=== PATIENT | male | born 1955 | race Caucasian/White ===

== ENCOUNTER 2017-09-28 10:36 | Outpatient (CLI) | payer OTHER | END 2017-09-28 10:37 | disposition home or self-care (01) | LOC: BICULT 10:36 | PROVIDERS: ATTEND Family Medicine | DX: M25.869 Other specified joint disorders, unspecified knee (principal); M71.22 Synovial cyst of popliteal space [Baker], left knee | CPT/HCPCS: 76999 ==

== ENCOUNTER 2018-01-10 10:20 | Outpatient (CLI) | payer OTHER ==
--- NOTE | 2018-01-10 12:59 | RAD ---
CHEST TWO VIEWS: History: Pyriform sinus cancer. Comparison: 07-27-16 FINDINGS: Normal cardiac silhouette. Pulmonary vasculature and hilum are normal. Costophrenic angles are clear. Hyperinflation, without consolidation or mass. No pneumothorax or osseous abnormality. Stable mild c ompression deformity of the midthoracic spine at approximately the T8 and T9 levels. IMPRESSION: Stable mild compression deformities at T8 and T9. No acute cardiopulmonary. POS: [facility]
== END 2018-01-10 10:21 | disposition home or self-care (01) ==
LOC: RAD 10:20
PROVIDERS: ATTEND Neurological Surgery
DX: C12 Malignant neoplasm of pyriform sinus (principal); M43.8X4 Other specified deforming dorsopathies, thoracic region
CPT/HCPCS: 36415; 71046; 84443

== ENCOUNTER 2019-09-09 21:07 | Inpatient (IN) | payer MEDICARE, MEDICAID ==
[2019-09-09 23:00] VITALS: BMI 22.8
[2019-09-09] MEDS ORDERED: Ondansetron ODT 4 MG TAB PO PRN (23:59)
[2019-09-09] MEDS ORDERED: Dextrose 5% in Water 1,000 ML IV PRN (23:59)
[2019-09-09] MEDS ORDERED: Ondansetron PF 4 MG/2 ML Vial IVP PRN (23:59)
[2019-09-09] MEDS ORDERED: hydrALAZINE 20 MG/ML VIAL SLOW IVP PRN (23:59)
[2019-09-09] MEDS ORDERED: Morphine 4 MG/ML VIAL SLOW IVP PRN (23:59)
[2019-09-09] MEDS ORDERED: Sodium Chloride 0.9% 1,000 ML IV SCH (23:59)
[2019-09-09] MEDS ORDERED: Dextrose 50% Abboject 50 ML SYRINGE SLOW IVP PRN (23:59)
--- NOTE | 2019-09-10 02:20 | HP ---
REQUESTING PHYSICIAN: Dr. Torres. ATTENDING SURGEON: Dr. Evans. CONSULTATIONS: Orthopedics, Dr. Jimenez. HISTORY OF PRESENT ILLNESS: Patient is a 64-year-old man, who was unloading the back of his truck when he slipped on some loose gravel and fell on his right hip. Patient was unable to ambulate, was taken to the emergency department in [place], where he underwent evaluation and examination, was noted to have a right femoral neck fracture, at which time Dr. Jimenez was called and he requested the patient be transferred to our facility and admitted to our service for surgical intervention. The patient denied any loss of consciousness. He had a small skin tear on his right elbow, but otherwise had no other complaints. ALLERGIES: CEPHALOSPORINS. CURRENT MEDICATIONS: 1. Baby aspirin. 2. Multivitamin. PAST MEDICAL HISTORY: Throat cancer, treated with radiation. PAST SURGICAL HISTORY: None. SOCIAL HISTORY: Patient drinks 5 to 8 drinks a day. He smokes approximately one pack of cigarettes a day. He uses occasional marijuana. He lives at home alone in the [place] area. REVIEW OF SYSTEMS: A 10-point review of systems is negative, except as otherwise stated. PHYSICAL EXAMINATION: VITAL SIGNS: Temperature is 98.2, heart rate 80, blood pressure 159/82, respirations 16, and oxygen saturation 98% on room air. GENERAL: The patient is resting comfortably in bed. He was asleep at the time of my visit, but he did awaken with verbal stimuli, stated that his pain was controlled at this time as he had just recently received some morphine. HEENT. Head is normocephalic and atraumatic. Eyes, extraocular movements are intact. PERRLA bilaterally. Ears are atraumatic without discharge. Nose is atraumatic without discharge. Oropharynx is clear. NECK: Nontender. Trachea is midline. No JVD. CHEST: Clear to auscultation with good inspiratory and expiratory effort, although the patient did have some scattered rhonchi during one of his respirations. HEART: Regular rate and rhythm. ABDOMEN: Soft, flat, and nontender with active bowel sounds. EXTREMITIES: Neurovascularly intact x4. PELVIS: Stable with tenderness to palpation to the right hip consistent with his fracture. BACK: By report is atraumatic and nontender. LABORATORY FINDINGS: White blood cell count 11.7, hemoglobin 13.2, hematocrit 41.2, and platelets 204. Sodium 129, potassium 4.7, chloride 94, CO2 is 19, BUN 6, creatinine 0.73, and glucose 121. IMAGING: Radiographic reports, views of the right hip show a mildly displaced, comminuted right intertrochanteric hip fracture, views of the right elbow show no acute osseous abnormality. ASSESSMENT: 1. Status post ground level fall. 2. Right intertrochanteric hip fracture. 3. Acute pain secondary to above. 4. Hyponatremia. 5. History of daily alcohol use; throat cancer, treated with radiation; and one pack per day smoking history. PLAN: Plan will be to keep the patient n.p.o., pain control, pulmonary toilet, gastritis, mechanical VTE prophylaxis, IV hydration. Postoperatively, we will restrict his fluid, add salt, begin physical and occupational therapy and discuss placement. Dr. Jimenez was notified by the ER and is aware of the patient. The evaluation, examination , laboratory, and radiographic findings were discussed with Dr. Evans prior to this dictation. Job ID: [id number] [facility]
[2019-09-10] MEDS: Oxazepam 10 MG CAP PO SCH ×3 (02:58→17:50)
[2019-09-10 05:15] LABS: #Basophils 0.1 thou/uL (0.0-0.2); #Eosinphils 0.1 thou/uL (0.0-0.7); #Lymphocytes 1.5 thou/uL (1.20-3.40); #Monocytes 0.8 thou/uL (0.11-0.59); #Neutrophils 5.5 thou/uL (1.40-6.50); %Basophils 0.7 % (0.0-1.0); %Eosinophils 0.9 % (0.0-10.0); %Lymphocytes 19.3 % (21.0-51.0); %Monocytes 9.5 % (0.0-10.0); %Neutrophils 69.7 % (42.0-75.0); Hemoglobin 12.3 g/dL (14.0-18.0); Mean Corpuscular HGB CONC 32.4 g/dL (32.0-36.0); Mean Corpuscular Hemoglobin 32.9 pg (27.0-31.0); Mean Platelet Volume 8.5 fL (7.4-10.4); Platelet Count 195 thou/uL (130-400); RBC Distribution Width 11.1 % (11.5-14.5); Red Blood Cell (RBC) Count 3.75 mill/uL (4.70-6.10); White Blood Cell (WBC) Count 7.9 thou/uL (4.8-10.8)
[2019-09-10 05:30] LABS: Anion Gap 11 mmol/L (10-20); BUN (Urea Nitrogen) 6 mg/dL (8.4-25.7); Calc. Creatinine Clearance 125 mL/min (70-130); Calcium 7.8 mg/dL (7.8-10.44); Carbon Dioxide 24 mmol/L (23-31); Chloride 98 mmol/L (98-107); Estimated GFR-MDRD Greater than 90; Glucose 104 mg/dL (80-115); Potassium 4.5 mmol/L (3.5-5.1); Sodium 128 mmol/L (136-145)
[2019-09-10] MEDS ORDERED: Fentanyl 250 MCG/5 ML VIAL ONE (07:55)
[2019-09-10] MEDS ORDERED: Midazolam HCl 2 mg/2 ml Vial ONE (07:55)
[2019-09-10] MEDS ORDERED: Benzocaine 20% Spray 60 ML CAN ONE (08:07)
[2019-09-10] MEDS: Folic Acid 1 MG TAB PO SCH (08:16)
[2019-09-10] MEDS: Thiamine 100 MG TAB PO SCH (08:16)
--- NOTE | 2019-09-10 08:43 | CON ---
DATE OF CONSULTATION: 09/10/2019 REQUESTING PHYSICIAN: Karlo Evans MD CONSULTING PHYSICIAN: Sumit Jimenez MD REASON FOR CONSULTATION: Right hip intertrochanteric fracture. BRIEF CLINICAL HISTORY: Ruel is a 64-year-old male, who fell yesterday afternoon out of the back of a pickup truck, landing on his right hip. Pain onset was immediate. EMS was dispatched. He was evaluated at [facility]. Radiographs demonstrated an intertrochanteric hip fracture on the right. He was transferred to [facility] for definitive orthopedic management of this problem. He has been admitted to the Trauma Service and we have been consulted. PAST MEDICAL HISTORY: Significant for hyponatremia, prior throat cancer. PAST SURGICAL HISTORY: None. He has had a couple of broken wrists, treated closed. MEDICATIONS: 1. Baby aspirin. 2. Multivitamin. ALLERGIES: NO KNOWN DRUG ALLERGIES. HE DENIES ANY CONTACT ALLERGIES. SOCIAL HISTORY: Occasionally uses marijuana. Lives alone at home. Smokes a pack of cigarettes a day. Consumes ethanol daily. PHYSICAL EXAMINATION: Visual inspection of the right hip demonstrates exquisite tenderness to palpation. Range of motion is not assessed due to an underlying fracture. He has external rotation and shortening of the right lower extremity relative to the left. He is neurovascularly intact in the right lower extremity. IMAGING STUDIES: AP pelvis to the right hip demonstrates intertrochanteric hip fracture on the right with comminution and three-part fractures identified. IMPRESSION: Comminuted displaced right hip intertrochanteric fracture. PLAN: 1. The risks, benefits, options, alternatives, and rationale for proceeding with closed versus open reduction with internal fixation and stabilization has been explained in great detail with the patient. He is ready to proceed. All questions were answered. No guarantee of outcome stated or implied plan. 2. Please see orders. Job ID: [id number]
--- NOTE | 2019-09-10 09:38 | OP ---
DATE OF PROCEDURE: 09/10/2019 OPERATION PERFORMED: Right proximal femur dynamic hip screw fixation. PREOPERATIVE DIAGNOSIS: Right unstable intertrochanteric fracture. POSTOPERATIVE DIAGNOSIS: Right unstable intertrochanteric fracture. COMPLICATIONS: None. ESTIMATED BLOOD LOSS: Minimal. GUINEA PIG BREEDER: Rodo Shafer PA-C IMPLANT: Synthes 3-hole 135-degree DHS. INDICATIONS: Mr. Shelton is a 64-year-old male who has fallen and fractured his right proximal femur. He has been indicated for open reduction and internal fixation of the femur to restore anatomic alignment and promote healing. Risks have been reviewed. Goal of surgery is to promote early mobilization and prevent complications of prolonged bedrest. Risks to include infection, pain, scarring, nerve or vascular injury, nonunion, malunion, and others. DESCRIPTION OF PROCEDURE: Mr. Shelton was identified in the preoperative holding area. His correct extremity was marked. He was carried to the operating room. He was positioned supine. General anesthesia was induced. A multidisciplinary time-out was performed. The right lower extremity was prepped and draped in sterile fashion. We began the procedure with evaluation of the hip fracture under intraoperative x-ray. At this point, we proceeded to pull traction on the leg as well as rotation until we had a well-reduced fracture. We prepped and draped the right lower extremity. We then made an incision on the thigh. We dissected down through the subcutaneous tissues to the fascia, which was opened. We then placed a 135-degree angle guide. The guidewire was placed through the guide into the proximal femur. At this point, we overdrilled the guidewire with our triple reamer. We measured an appropriate length. We then placed our 90-mm screw and a 3-hole sideplate was impacted. We placed 3 screws in the side plate. We used a compression screw to lock further compression of the fracture. We took final x-ray images in orthogonal planes. We thoroughly irrigated with copious lavage. At this point, we closed in layers; 0 Vicryl suture, 2-0 Vicryl suture, and willam were used. Job ID: [id number]
[2019-09-10] MEDS ORDERED: Ondansetron HCl/PF 4 MG/2 ML Vial IVP PRN (09:45)
[2019-09-10] MEDS: Morphine 2 MG/ML SYRINGE SLOW IVP PRN ×2 (10:28→12:34)
--- NOTE | 2019-09-10 11:25 | RAD ---
RIGHT HIP 2 VIEWS: Date: 09/10/2019 HISTORY: Open reduction and internal fixation right hip. Right intertrochanteric hip fracture. FINDINGS/IMPRESSION: Three spot fluoroscopic intraoperative images of the right hip demonstrate interval reduction and int ernal fixation of the intertrochanteric fracture with angled compression device and screws since the previous day's exam. POS: [facility]
[2019-09-10] MEDS ORDERED: Cyclobenzaprine 10 MG TAB PO PRN (13:09)
[2019-09-10] MEDS ORDERED: traMADol HCl 50 MG TAB PO PRN ×2 (13:09)
[2019-09-10] MEDS ORDERED: Morphine 2 MG/ML SYRINGE SLOW IVP PRN (13:12)
[2019-09-10] MEDS: Acetaminophen 325 MG TAB PO SCH ×2 (14:08→17:49)
[2019-09-10] MEDS: Ibuprofen 600 MG TAB PO SCH ×2 (14:08→22:53)
[2019-09-10] MEDS ORDERED: diphenhydrAMINE 50 MG/ML VIAL ONE (15:44)
[2019-09-10] MEDS ORDERED: Rocuronium Bromide 10 MG/ML (10ML VIAL) ONE (15:44)
[2019-09-10] MEDS ORDERED: Ketorolac Tromethamine 30 MG/ML VIAL ONE (15:44)
[2019-09-10] MEDS ORDERED: Glycopyrrolate 0.2 MG/ML 5 ML SYRINGE ONE (15:44)
[2019-09-10] MEDS ORDERED: EPHEDRINE 25 MG/5 ML SYRINGE ONE (15:44)
[2019-09-10] MEDS ORDERED: Dexamethasone 20 MG/5 ML VIAL ONE (15:44)
[2019-09-10] MEDS ORDERED: PROPOFOL 200 MG/20 ML VIAL ONE (15:44)
[2019-09-10] MEDS ORDERED: Ondansetron PF 4 MG/2 ML Vial ONE (15:44)
[2019-09-10] MEDS: CEFAZOLIN 2 GM in Premix Bag 1 BAG IVPB SCH ×2 (15:59→22:58)
--- NOTE | 2019-09-10 16:01 | PRG ---
DATE OF SERVICE: SUBJECTIVE: Mr. Shelton has no complaints this morning. He sustained a right hip fracture status post fall. OBJECTIVE: VITAL SIGNS: He is afebrile. Vital signs are stable. CHEST: Clear. HEART: Regular rate. ABDOMEN: Soft. DIAGNOSTIC DATA: X-rays are all reviewed. ASSESSMENT: Right hip fracture. PLAN: Plan is for ORIF today. Please see [facility] H and P for full details. Job ID: [id number]
[2019-09-11] MEDS: Oxazepam 10 MG CAP PO SCH ×3 (01:08→18:22)
[2019-09-11] MEDS: Acetaminophen 325 MG TAB PO SCH ×4 (01:08→18:22)
[2019-09-11] MEDS: Ibuprofen 600 MG TAB PO SCH ×3 (06:27→21:00)
[2019-09-11] MEDS: Folic Acid 1 MG TAB PO SCH (09:31)
[2019-09-11] MEDS: Enoxaparin Sodium 40 MG/0.4 ML SYRINGE SC SCH (09:31)
[2019-09-11] MEDS: Thiamine 100 MG TAB PO SCH (09:31)
[2019-09-11 09:43] LABS: #Lymphocytes 1.4 thou/uL (1.20-3.40); #Monocytes 0.6 thou/uL (0.11-0.59); #Neutrophils 9.8 thou/uL (1.40-6.50); %Basophils 0.3 % (0.0-1.0); %Eosinophils 0.2 % (0.0-10.0); %Lymphocytes 11.6 % (21.0-51.0); %Monocytes 4.7 % (0.0-10.0); %Neutrophils 83.2 % (42.0-75.0); Hemoglobin 10.5 g/dL (14.0-18.0); Mean Corpuscular HGB CONC 33.5 g/dL (32.0-36.0); Mean Corpuscular Hemoglobin 33.8 pg (27.0-31.0); Mean Platelet Volume 8.8 fL (7.4-10.4); Platelet Count 188 thou/uL (130-400); RBC Distribution Width 11.2 % (11.5-14.5); Red Blood Cell (RBC) Count 3.09 mill/uL (4.70-6.10); White Blood Cell (WBC) Count 11.7 thou/uL (4.8-10.8)
[2019-09-11 10:01] LABS: ALT (SGPT) 11 U/L (8-55); AST (SGOT) 22 U/L (5-34); Alkaline Phosphatase 78 U/L (40-110); Anion Gap 8 mmol/L (10-20); BUN (Urea Nitrogen) 10 mg/dL (8.4-25.7); Bilirubin, Total 0.5 mg/dL (0.2-1.2); Calc. Creatinine Clearance 111 mL/min (70-130); Calcium 7.9 mg/dL (7.8-10.44); Carbon Dioxide 31 mmol/L (23-31); Chloride 96 mmol/L (98-107); Estimated GFR-MDRD Greater than 90; Globulin 2.3 g/dL (2.4-3.5); Glucose 107 mg/dL (80-115); Potassium 4.3 mmol/L (3.5-5.1); Protein, Total 5.3 g/dL (5.8-8.1); Sodium 131 mmol/L (136-145)
--- NOTE | 2019-09-11 11:20 | PRG ---
DATE OF SERVICE: 09/11/2019 SUBJECTIVE: Mr. Shelton is doing very well this morning. He rates his pain 5/10 , well controlled with p.o. pain medication. He has no concerns or complaints. He tolerated breakfast well this morning. The patient denies any agitation or tremors or confusion. The patient initially presented from home, and is open for rehab placement. OBJECTIVE: VITAL SIGNS: Temperature 97.6, pulse 72, respiratory rate 18, O2 saturation 98% on room air, blood pressure 128/68. GENERAL: Well-appearing, in no acute distress. Alert and oriented x3. HEENT: moist mucous membranes. Poor dentition. Extraocular movements intact. sclera non-itceric NECK: Trachea midline. Neck is supple. RESPIRATORY: Symmetric chest wall expansion bilaterally. EXTREMITIES: Neurovascular intact x4. Normal sensation bilaterally and free range of motion of right lower extremity post surgical site. Non-tremulous LABORATORY VALUES: White blood cell count 11.7, hemoglobin 10.5, platelet 188. Sodium 131, chloride 96, carbon dioxide 31, BUN 10, creatinine 0.72. ASSESSMENT: 1. Status post ground level fall. 2. Right hip fracture with open reduction and internal fixation postop day #1. 3. Acute pain secondary to above, well controlled. 4. Hyponatremia, improved. 5. Acute blood loss anemia secondary to the above. 6. History of daily alcohol use, throat cancer treated with radiation. 7. Tobacco abuse, one pack per day smoking history. PLAN: The patient is status post open reduction and internal fixation of right intertrochanteric hip fracture. He is postop day #1. We will continue supportive care with pain management, pulmonary toilet, VTE prophylaxis. The patient's pain is well controlled on current regime. The patient is working with Physical Therapy and Occupational Therapy. The patient's hyponatremia is improved. The patient is on Serax for acute alcohol withdrawal, no signs or symptoms of acute alcohol withdrawal at this time will initial ASE scoring. We will continue to monitor. Case Management to assist with placement as the patient would benefit from rehab prior to discharge home. The patient was seen and examined by Dr. Lorenzana on morning rounds with the above plan discussed with the patient who voiced agreement and understanding of the plan and disposition. Job ID: [id number] [facility]
[2019-09-12] MEDS: Oxazepam 10 MG CAP PO SCH ×3 (01:49→18:19)
[2019-09-12] MEDS: Acetaminophen 325 MG TAB PO SCH ×3 (01:49→15:28)
[2019-09-12] MEDS: Ibuprofen 600 MG TAB PO SCH ×2 (06:35→15:28)
[2019-09-12] MEDS ORDERED: Polyethylene Glycol 3350 17 GM Packet PO SCH ×2 (09:45→21:00)
[2019-09-12] MEDS ORDERED: Senokot 8.6 MG TAB PO SCH ×2 (09:45→21:00)
[2019-09-12] MEDS: Folic Acid 1 MG TAB PO SCH (09:56)
[2019-09-12] MEDS: Enoxaparin Sodium 40 MG/0.4 ML SYRINGE SC SCH (09:56)
[2019-09-12] MEDS: Thiamine 100 MG TAB PO SCH (09:56)
[2019-09-12] MEDS: traMADol HCl 50 MG TAB PO SCH ×2 (09:57→15:28)
--- NOTE | 2019-09-12 11:02 | PRG ---
DATE OF SERVICE: 09/12/2019 SUBJECTIVE: Mr. Shelton is doing very well this morning. Rates his pain 5 to 6 out of 10. However, he has not been requesting his p.r.n. pain medications. He has no concerns or complaints. Tolerating breakfast well. He said he has been working with physical therapy and walking the halls with assistance. Denies any agitation, tremors, or confusion. No signs and symptoms of acute alcohol withdrawal per nursing staff. The patient is eager for discharge and would like to go home with outpt PT. OBJECTIVE: VITAL SIGNS: Temperature 98, pulse 88, respiratory rate 14, O2 saturation 95% on room air, and blood pressure 133/74. GENERAL: Well appearing, no acute distress. Alert and oriented x3, in good spirits. HEENT: Moist mucous membranes. Poor dentition. Extraocular movements intact. Sclerae nonicteric. NECK: Trachea midline. Neck is supple. RESPIRATORY: Symmetric chest wall expansion bilaterally. No acute respiratory distress. EXTREMITIES: Neurovascularly intact x4. Normal sensation bilaterally and free range of motion of right lower extremity postsurgical site and non-tremulous. LABORATORY VALUES: No new values for this morning. ASSESSMENT: 1. Status post ground level fall. 2. Right hip fracture with open reduction and internal fixation, postop day #2. 3. Acute pain secondary to above. 4. Hyponatremia, improved. 5. Acute blood loss anemia, secondary to the above, stable. 6. History of daily alcohol abuse. 7. Throat cancer in remission, treated with radiation and daily alcohol abuse, one pack per day. PLAN: The patient is postop day #2. We will continue supportive care with pain management. We will schedule tramadol as well as p.r.n. to help better well control pain. We will continue pulmonary toilet and VTE prophylaxis in addition of bowel regimen. Encourage patient to continue work with physical and occupational therapy. The patient's hyponatremia has improved. No signs of acute alcohol withdrawal. Case Management to assist with dispo. The patient was seen and examined by Dr. Lorenzana on morning rounds. The above plan was discussed with the patient who voiced agreement and understanding of the plan and disposition. All questions were answered appropriately. Job ID: [id number] [facility]
[2019-09-12 15:29] VITALS: BP 105/63; TEMP 97.7
[2019-09-12] MEDS ORDERED: Aspirin 81 mg Enteric Coated Tablet PO SCH (21:00)
--- NOTE | 2019-09-13 03:05 | DIS ---
DATE OF ADMISSION: 09/09/2019 DATE OF DISCHARGE: 09/12/2019 This is Gale Talbot NP dictating a report for Dr. Lorenzana. DISCHARGE ATTENDING: Dr. Lorenzana. CONSULTS: Orthopedic Surgery, Dr. Jimenez. PROCEDURES PERFORMED: On 09/10/2019, right proximal femur dynamic hip screw fixation by Dr. Jimenez. PRIMARY DIAGNOSES: Right intertrochanteric hip fracture, hyponatremia, acute traumatic pain. SECONDARY DIAGNOSES: Daily alcohol use, throat cancer, treated with radiation. DISCHARGE MEDICATIONS: 1. Aspirin 81 mg b.i.d. for 30 days for VTE prophylaxis. 2. Acetaminophen 650 mg p.o. q.6 hours. 3. Ibuprofen 600 mg p.r.n. q.8 hours. 4. MiraLAX as needed for constipation. 5. Senokot as needed for constipation. 6. Tramadol 50 mg p.o. q.6 hours p.r.n. pain, 1-2 tablets #30. 7. Multivitamin one tablet daily. DISCONTINUE MEDICATIONS: Aspirin 81 mg daily. The patient is to discontinue for 30 days and then restart after the patient completes aspirin 81 mg b.i.d. HISTORY OF PRESENT ILLNESS AND HOSPITAL COURSE: This is a 64-year-old gentleman, who was unloading the back of his truck when he slipped on some loose gravel causing him to fall onto his right hip. The patient was unable to ambulate after falling, was taken to the emergency room for evaluation. The patient was found to have a right femoral neck fracture. The patient's pain was well controlled pre and postop. The patient was able to work with Physical Therapy without any difficulties. The patient denied any loss of consciousness and only had a small skin tear on his right elbow. On the day of discharge, the patient was able to ambulate using a walker 240 feet with minimal assistance. Physical Therapy felt the patient was safe to be discharged home with family members. The patient was seen and evaluated by Dr. Lorenzana during morning rounds. The patient's pain was well controlled and only reported pain whenever he was up and ambulating. We did schedule patient's tramadol q.6 hours. On the day of discharge, vitals were stable and his exam was unremarkable including cardiopulmonary and GI exam. The patient was deemed stable for discharge home with family members, and the patient is to have outpatient physical therapy done. DISPOSITION: Stable. DISCHARGE INSTRUCTIONS: 1. Location: Home with outpatient physical therapy. 2. Diet: Regular diet. 3. Activity: Orthopedic limitations, partial weightbearing to the right lower extremity. 4. Followup: Follow up with Orthopedic Surgery, Dr. Jimenez, in 2 weeks. No need to follow up with Trauma Services. Please call for any questions. This is just a summary of the patient's hospital stay. Please see the chart for details. Job ID: [id number]
== END 2019-09-12 19:12 | disposition home or self-care (01) | DRG 481 ==
LOC: SURG A 22:38 → UNDOADMIN 22:38
PROVIDERS: ADMIT Surgery; ATTEND Surgery
PROC: 0QS604Z Reposition Right Upper Femur with Internal Fixation Device, Open Approach (ICD-10-PCS; principal; 2019-09-10)
DX: S72.141A Displaced intertrochanteric fracture of right femur, initial encounter for closed fracture (principal); E87.1 Hypo-osmolality and hyponatremia; D62 Acute posthemorrhagic anemia; W01.0XXA Fall on same level from slipping, tripping and stumbling without subsequent striking against object, initial encounter; F17.210 Nicotine dependence, cigarettes, uncomplicated; Z88.1 Allergy status to other antibiotic agents; Z79.82 Long term (current) use of aspirin; Z85.12 Personal history of malignant neoplasm of trachea
CPT/HCPCS: 36415; 36416; 76000; 80048; 80053; 85025; C1713; J0690; J1100; J1200; J1650; J1885; J2250; J2270; J2405; J2704; J3010

== ENCOUNTER 2020-05-29 16:02 | Inpatient (IN) | payer MEDICARE, MEDICAID ==
[~2020-05-29 16:02] MED LIST: Iopamidol-370 76% 500 ML 1 ML ONE
[2020-05-29] MEDS ORDERED: Enoxaparin Sodium 80 MG/0.8 ML SYRINGE ONE ×2 (17:09→22:11)
--- NOTE | 2020-05-29 17:11 | CT ---
CTA CHEST: INDICATIONS: Hypoxia. Chest pain. TECHNIQUE: Axial tomograms obtained following angio protocol with multiplanar reconstruction and 3D post process ing. FINDINGS: The pulmonary arteries show adequate opacification. No evidence of pulmonary embolus identified. Review of the lung bravo show cardiomegaly with vascular congestion. Diffuse interstitial prominence , which probably represents interstitial congestion and edema. Small bilateral effusions and mild bibasilar atelectasis and/or infiltrates. Patchy infiltrate in the right middle lobe. Images through the upper abdomen unremarkable. Osseous structures show degenerative changes in the sp ine with wedge compressions of several mid and lower thoracic vertebrae with large bridging osteophyt es and degenerative disk changes. IMPRESSION: 1. No evidence of pulmonary embolus. 2. Cardiomegaly with vascular and interstitial congestion. 3. Small bilateral effusions with bibasilar atelectasis and/or infiltrates. 4. Right middle lobe infiltrate, which would be concerning for pneumonia. POS: [facility]
[2020-05-29 17:28] LABS: CKMB 22.3 ng/mL (0-6.6)
[2020-05-29] MEDS ORDERED: Nitroglycerin 0.4 MG TAB (25 Tab Bottle) SL PRN (18:28)
[2020-05-29] MEDS ORDERED: Albuterol 200 PUFF (6.7GM INHALER) INH PRN (18:29)
[2020-05-29] MEDS ORDERED: cefTRIAXone\\ROCEPHIN 2 GM VIAL ONE (18:29)
--- NOTE | 2020-05-29 18:58 | PDOC.HHP ---
Hospitalist HPI History of Present Illness: ADMISSION DATE: 05/29/2020 TIME OF ASSESSMENT: 1700 PRIMARY CARE PHYSICIAN: None CHIEF COMPLAINT: Chest pain and shortness of breath HPI: This is a 64-year-old gentleman who presents to the emergency department with complaints of chest pain associated with shortness of breath that started early hours this morning. The patient states he has been feeling unwell for the last month with a persistent cough that is junky but nonproductive. He reports having pressure in the center of his chest this morning which is radiating up and down his sternum. He rates it a 20 out of 10 in severity and states he has not had pain like this in the past. At the same time he found it difficult to take of breath and felt that it was breathing quickly without being able to get air in. He had been given a Breo inhaler a month ago which he tried without any relief. He called 911 and was taken to [place] ER for respiratory distress and per EMS was cyanotic in appearance. He was placed on a nonrebreather with improvement in his symptoms. At initial presentation to [place] he was noted to be hypoxic with sats of 76% on room air and improved to 98% on 2 L. Chest x-ray done in the ER demonstrated interstitial opacity in the perihilar regions in both lung bases with small bilateral pleural effusions suggestive of pulmonary edema. Infectious pneumonitis also possibility. There is a focal area of opacity with a rounded configuration of the right hilum felt to be new compared to prior imaging from February 2020 suggesting focal airspace disease however mass lesion could not be fully excluded therefore short-term follow-up imaging of the chest was recommended. Labs done were notable for an elevated white count of 11.9, hemoglobin 14.3, hematocrit 43.7, platelets of 50, neutrophils 81%, bands 2%. Had a sodium of 124, potassium 4.3, BUN 16, creatinine 0.4, GFR greater than 90, glucose 204, alk phos 111, LFTs otherwise normal. Troponin was 0.197 and CK-MB was 5.7. BNP was elevated at 456. Tested negative for influenza A/B and Covid. He was treated for COPD exacerbation with doxycycline 100 mg p.o., methylprednisolone 125 mg IV, given a DuoNeb and received 4000 units of heparin IV. ED COURSE: The patient was transferred to the ER here for a possible NSTEMI. He had an EKG done which demonstrated sinus tachycardia with a heart of 105 with frequent PVCs but no ST changes or T wave abnormalities. Repeat laboratory studies indicated further elevation in the troponin to 3.824 and a CK-MB of 22.3. The patient was treated with Lovenox 1 mg/kg. He also had a CT angiogram of the chest done which showed no evidence of PE. He had cardiomegaly with vascular and interstitial congestion. Small bilateral pleural effusions with bibasilar atelectasis and/or infiltrates. A right middle lobe infiltrate noted, concerning for pneumonia. He was given a dose of Rocephin 2 g IV. ROS: Denies any fevers, chills or sweats. Has had a cough for over a month, no hemoptysis. Reports feeling generally weak for the last month as well. Has vomiting 5 times in the last 3 weeks. Last time he vomited was this morning after breakfast. Does not recall aspirating. He reports having loose stools a couple of weeks ago. No melena or hematochezia. No urinary symptoms. Allergies/Adverse Reactions: Allergy/AdvReac Type Severity Reaction Status Date / Time cetuximab [From Erbitux] Allergy Anaphylaxis Verified 09/09/19 23:11 Home Medications: Medication Instructions Recorded Confirmed Type Multivitamin [Multi-Vitamin Daily] 1 tablet PO DAILY 03/08/13 09/09/19 History Acetaminophen [Tylenol Regular 650 mg PO Q6H tab 09/12/19 Rx Strength] Aspirin [Ecotrin Low Strength] 81 mg PO BID tab 09/12/19 Rx Ibuprofen [Motrin] 600 mg PO Q8HR PRN tab 09/12/19 Rx Polyethylene Glycol 3350 [Miralax] 17 gm PO BID PRN #0 pk 09/12/19 Rx Sennosides [Senokot] 2 tab PO 2100 tab 09/12/19 Rx traMADol HCl [Ultram] 50 mg PO Q6H PRN #30 tab 09/12/19 Rx Past History: PAST MEDICAL HISTORY: 1. History of throat cancer in the past for which he received radiation 2. Previous tobacco abuse 3. Alcohol abuse PAST SURGICAL HISTORY: 1. Previous surgery for a right hip fracture SOCIAL HISTORY: Reports been a heavy smoker for many years and most recently smoked 1 pack a day until February when he quit. He drinks 5-6 beers a day but denies any history of tremors or withdrawal seizures. Denies any drug use. Uses a cane for mobility due to a prior right hip fracture. FAMILY HISTORY: Noncontributory Hospitalist Exam Vitals: VS: Temp 98.4, HR 102, BP 119/78, RR 20, O2 sat 95% on 2 L by nasal cannula General Appearance: NAD, awake alert Eye: PERRL, anicteric sclera ENT: normocephalic atraumatic, no oropharyngeal lesions, dry oral mucosa Neck: supple, no lymphadenopathy Heart: RRR, normal peripheral pulses Respiratory: CTAB, normal chest expansion, no tachypnea, rales Gastrointestinal: soft, non-tender, non-distended, no guarding, no rigidity Extremities: no cyanosis, no edema Skin: no lesions, no rashes, tenting Neurological: cranial nerve grossly intact, normal sensation to touch, no weakness, no focal deficits, no new deficit Musculoskeletal: normal tone, normal strength, no muscle wasting Psychiatric: normal affect, normal behavior, A&O x 3 Hospitalist Results Lab results: Laboratory Last Values CK-MB (CK-2) 22.3 ng/mL (0-6.6) H* 05/29/20 16:25 Troponin I 3.824 ng/mL (< 0.028) H* 05/29/20 16:25 CT scan - head Status: report reviewed by mt Hospitalist H&P A/P (1) Acute respiratory failure with hypoxia Code(s): J96.01 - ACUTE RESPIRATORY FAILURE WITH HYPOXIA Status: Acute Assessment and Plan: Likely has undiagnosed COPD and CHF. CTA negative for PE Improved with steroids and breathing treatments given at [facility] ED Continuous O2 sat monitoring COVID testing negative, will continue duonebs prn Daily steroids: Pred 40 mg PO (2) Pneumonia Code(s): J18.9 - PNEUMONIA, UNSPECIFIED ORGANISM Status: Suspected Assessment and Plan: Leukocytosis and bandemia, has been afebrile Doxycycline given at [place] and started on Rocephin here Will add vanc for possible aspiration, in light of recent vomiting Sputum and blood cultures ordered (3) NSTEMI (non-ST elevated myocardial infarction) Code(s): I21.4 - NON-ST ELEVATION (NSTEMI) MYOCARDIAL INFARCTION Status: Acute Assessment and Plan: Cardiac monitoring Continue to trend troponins Cardiology consult Continue Lovenox (4) Suspected CHF (congestive heart failure) Code(s): R09.89 - OTH SYMPTOMS AND SIGNS INVOLVING THE CIRC AND RESP SYSTEMS S tatus: Acute Assessment and Plan: Fluid restriction No lasix at this time in light of hyponatremia, as per discussion with Dr. Meadows Echo ordered (5) Hyponatremia Code(s): E87.1 - HYPO-OSMOLALITY AND HYPONATREMIA Status: Acute Assessment and Plan: Likely secondary to alcohol abuse Serum and urine osmolality, urine sodium Monitor Na+ Fluid restriction (6) Alcohol abuse Code(s): F10.10 - ALCOHOL ABUSE, UNCOMPLICATED Status: Chronic Assessment and Plan: [facility] protocol initiated Check vitamin B12 and folate (7) Tobacco use Code(s): Z72.0 - TOBACCO USE Status: Chronic Assessment and Plan: per patient he stopped smoking in February (8) Generalized weakness Code(s): R53.1 - WEAKNESS Status: Chronic Assessment and Plan: PT/OT consulted Plan: DVT Prophylaxis: Mechanical SCDs, he is on anticoagulation CODE STATUS: FULL Case discussed with Dr. Meadows who agrees with plan as above
[2020-05-29 19:34] LABS: Lactic Acid 1.4 mmol/L (0.5-2.2)
[2020-05-29 19:38] LABS: Alcohol Less than 10 mg/dL (Less than 10); CRP (Inflammatory) 11.23 mg/dL (= or < 0.5); Magnesium 1.8 mg/dL (1.6-2.6)
[2020-05-29] MEDS ORDERED: Diazepam 5 MG TAB PO PRN (20:22)
[2020-05-29] MEDS ORDERED: Diazepam 5 MG TAB PO SCH (20:30)
[2020-05-29] MEDS ORDERED: Thiamine HCl 200 MG/2 ML VIAL IM SCH (20:30)
[2020-05-29] MEDS ORDERED: Thiamine 100 MG TAB ONE (22:07)
[2020-05-29] MEDS ORDERED: Diazepam 5 MG TAB ONE (22:07)
[2020-05-29] MEDS: Doxycycline 100 MG CAP PO SCH (22:48)
[2020-05-29 23:39] LABS: CKMB 56.2 ng/mL (0-6.6)
[2020-05-30] MEDS ORDERED: Diazepam 5 MG TAB PO PRN (04:00)
[2020-05-30 04:42] LABS: #Lymphocytes 1.5 thou/uL (1.20-3.40); #Monocytes 0.8 thou/uL (0.11-0.59); #Neutrophils 13.9 thou/uL (1.40-6.50); %Basophils 0.2 % (0.0-1.0); %Lymphocytes 9.4 % (21.0-51.0); %Monocytes 4.7 % (0.0-10.0); %Neutrophils 85.7 % (42.0-75.0); Hemoglobin 13.2 g/dL (14.0-18.0); Mean Corpuscular HGB CONC 32.3 g/dL (32.0-36.0); Mean Corpuscular Hemoglobin 31.4 pg (27.0-31.0); Mean Corpuscular Volume 97.3 fL (78.0-98.0); Mean Platelet Volume 8.8 fL (7.4-10.4); Platelet Count 231 thou/uL (130-400); RBC Distribution Width 11.4 % (11.5-14.5); White Blood Cell (WBC) Count 16.2 thou/uL (4.8-10.8)
[2020-05-30 05:02] LABS: ALT (SGPT) 23 U/L (8-55); AST (SGOT) 109 U/L (5-34); Albumin 3.5 g/dL (3.4-4.8); Alkaline Phosphatase 95 U/L (40-110); Anion Gap 14 mmol/L (10-20); BUN (Urea Nitrogen) 20 mg/dL (8.4-25.7); Bilirubin, Total 0.4 mg/dL (0.2-1.2); Calc. Creatinine Clearance 126 mL/min (70-130); Calcium 8.6 mg/dL (7.8-10.44); Carbon Dioxide 22 mmol/L (23-31); Cardiac Risk 2.2 (Less than 4.5); Chloride 90 mmol/L (98-107); Cholesterol 165 mg/dl (< 200 Desired); Globulin 3.2 g/dL (2.4-3.5); Glucose 132 mg/dL (80-115); HDL Cholesterol 76 mg/dL (>60 Neg Risk); LDL Cholesterol, Calculated 80 mg/dL; Potassium 4.9 mmol/L (3.5-5.1); Protein, Total 6.7 g/dL (5.8-8.1); Sodium 121 mmol/L (136-145); Triglycerides 47 mg/dL (Less than 150)
[2020-05-30] MEDS ORDERED: Enoxaparin Sodium 80 MG/0.8 ML SYRINGE ONE (05:42)
[2020-05-30] MEDS ORDERED: Enoxaparin Sodium 80 MG/0.8 ML SYRINGE SC SCH ×2 (06:00→09:00)
[2020-05-30 07:37] LABS: Bilirubin Negative (Negative); Blood, Urine Negative (Negative); Clarity Clear (Clear); Glucose, Urine (Dipstick) 50 mg/dL (Negative); Ketone, Urine Trace mg/dL (Negative); Leukocyte Negative Leu/uL (Negative); Nitrite Negative (Negative); Protein, Urine (Dipstick) 30 mg/dL (Neg-Trace); RBC/HPF 0-3 HPF (0-3); Squamous Epithelial None Seen HPF (0-3); Urobilinogen Normal mg/dL (Less than 2); WBC/HPF 0-3 HPF (0-3)
[2020-05-30 07:41] LABS: Amphetamine Not Detected (NotDetected); Barbiturates Screen Not Detected (NotDetected); Benzodiazepine Screen Detected (NotDetected); Cocaine Metabolite Screen Not Detected (NotDetected); Medtox Control Line Valid? VALID (VALID); Medtox Reader # READER 4; Methadone Not Detected (NotDetected); Methamphetamine Not Detected (NotDetected); Opiate Screen Not Detected (NotDetected); Oxycodone Screen Not Detected (NotDetected); Phencyclidine (PCP) Not Detected (NotDetected); THC/Cannabinoid Screen Detected (NotDetected); Tricyclic Screen Not Detected (NotDetected)
[2020-05-30 07:50] LABS: Bacteria/HPF Rare-Few HPF (None Seen)
[2020-05-30 07:51] LABS: Sperm/HPF 3+ HPF (None Seen)
[2020-05-30 07:53] LABS: Urine Culture Reflex No No
[2020-05-30] MEDS ORDERED: predniSONE 20 MG TAB PO SCH (09:00)
[2020-05-30] MEDS ORDERED: Lidocaine 1% (PF) 30 ML VIAL ONE (09:56)
[2020-05-30] MEDS ORDERED: Aspirin Chewable 81 MG TAB ONE (09:59)
[2020-05-30] MEDS ORDERED: Folic Acid 1 MG TAB ONE (09:59)
[2020-05-30] MEDS ORDERED: predniSONE 20 MG TAB ONE (09:59)
[2020-05-30] MEDS ORDERED: Thiamine 100 MG TAB ONE (09:59)
[2020-05-30] MEDS: Magnesium Oxide 400 MG TAB PO SCH (10:02)
[2020-05-30] MEDS: Aspirin Chewable 81 MG TAB PO SCH (10:03)
[2020-05-30] MEDS: Folic Acid 1 MG TAB PO SCH (10:03)
[2020-05-30] MEDS: Multivitamin W/ Minerals 1 TAB PO SCH (10:03)
[2020-05-30] MEDS: Thiamine 100 MG TAB PO SCH (10:03)
[2020-05-30] MEDS: Doxycycline 100 MG CAP PO SCH ×2 (10:03→20:41)
[2020-05-30] MEDS ORDERED: Sodium Chloride 0.9% 10 ML ONE (10:42)
[2020-05-30] MEDS ORDERED: Communication Order-Pharmacy FS PRN (10:58)
[2020-05-30] MEDS ORDERED: CEFAZOLIN 2 GM in Premix Bag 1 BAG IVPB SCH (11:00)
[2020-05-30 11:14] LABS: PTT 39.5 sec (22.9-36.1); Prothrombin Time 13.8 sec (12.0-14.7)
--- NOTE | 2020-05-30 11:15 | CON ---
DATE OF CONSULTATION: 05/30/2020 REASON FOR CONSULTATION: Non-STEMI. HISTORY OF PRESENT ILLNESS: Mr. Shelton is a pleasant 64-year-old white gentleman, who comes to the hospital for chest pain. He has a history of COPD from tobacco use and he has been short of breath for the last 3 weeks. He saw his primary care doctor who gave him a prescription for Breo Ellipta. It helped at 1st, but it has progressively been getting worse. Yesterday, he decided to come in to the ER in [place], as he felt severe chest pain, felt like somebody putting their foot on his chest and pressing down. It was 10/10 in intensity and the only thing that made it improve was some nitro paste that he had. On my evaluation, he continues to have chest pain about 3/10, but better since the nitro. Troponins were normal initially and have up titrated up to 13 now. PAST MEDICAL HISTORY: 1. Throat cancer status post radiation. 2. History of tobacco use, quit in February of last year. 3. History of alcohol use. 4. COPD. PAST SURGICAL HISTORY: Right hip surgery, right hip replacement. SOCIAL HISTORY: Heavy smoker for many years. Smoked about a pack a day, quit in February of last year. He drinks about five or six beers every day. He has never had withdrawals. He actually started smoking at the age of 6. Since his right hip fracture and repair, he has had some mobility issues. FAMILY HISTORY: Noncontributory. OUTPATIENT MEDICATIONS: 1. Multivitamin daily. 2. Tylenol p.r.n. 3. Aspirin daily. 4. Ibuprofen p.r.n. 5. MiraLAX p.r.n. 6. Senokot p.r.n. 7. Tramadol p.r.n. ALLERGIES: RITUXIMAB GIVES HIM ANAPHYLAXIS. REVIEW OF SYSTEMS: A 12-point review of systems was done and was found to be negative other than stated in the history of present illness. PHYSICAL EXAMINATION: VITAL SIGNS: Temperature 98.2, pulse 92, respiratory rate 18, sat 97% on 2 L nasal cannula, blood pressure 107/69. GENERAL: Awake, alert and oriented x3. No distress. HEENT: Normocephalic and atraumatic. NECK: Supple. LUNGS: Have reduced breath sounds bilaterally. CARDIOVASCULAR: S1 and S2. Multiple PVCs making his heart irregular. ABDOMEN: Soft, positive bowel sounds. EXTREMITIES: No edema. SKIN: Warm and dry. LABORATORY DATA: Laboratory work was reviewed. White count of 11, up to 16 after steroids were given. Hemoglobin of 13.2, hematocrit 40, and platelet count 231. Chemistry troponins initially at 0.1 up to 3, then 8, now 13. CK-MB of 256. Sodium was 121, potassium is 4.9, chloride of 90, carbon dioxide of 22, anion gap of 14, BUN of 20, creatinine 0.67, GFR greater than 90. Glucose was 132. Folate was 12. Vitamin B12 was 809. Triglycerides of 47, LDL of 80, cholesterol total of 165, HDL of 76. UA was unremarkable. Benzodiazepine and cannabis were detected on his toxicology. Alcohol level was negative. COVID PCR influenza A and B were both negative. EKG was reviewed. Ischemic changes in the anterior lateral leads. Chest x-ray and CT of the chest were reviewed. ASSESSMENT/PLAN: 1. [id number] myocardial infarction. 2. We will further risk stratify with the heart catheterization. Risks and benefits of the procedure were discussed with him briefly given the emergent nature of this procedure as he is symptomatic with ongoing chest pain, ischemic looking EKG. I think this is an emergency and we need to go figure out what his coronary arteries look like. My suspicion would be multivessel disease. 3. Further recommendations per results of coronary angiogram. Job ID: [id number]
[2020-05-30] MEDS ORDERED: Albumin 5% 500 ML ONE (12:00)
--- NOTE | 2020-05-30 12:17 | CON ---
DATE OF CONSULTATION: 05/30/2020 REQUESTING PHYSICIAN: Dr. Cruz. CHIEF COMPLAINT: Chest pain and shortness of breath. PRIMARY CARE PHYSICIAN: Patricia Dhaliwal MD. HISTORY OF PRESENT ILLNESS: The patient is a 64-year-old man, who quit smoking last fall after having smoked since the age of 6. He has significant COPD and thought that his COPD was worsening over the last month in spite of having quit smoking when his COPD medications were no longer helping with the shortness of breath. He presented yesterday with chest tightness in addition to his severe shortness of breath. He was found to have an elevated troponin that has continued to rise. It was 0.197 about noon yesterday and as of about 10:30 last night had risen to 56.2. Cardiac catheterization today shows severe distal left main lesion. PAST MEDICAL HISTORY: Significant for throat cancer treated with radiation, COPD, history of alcohol abuse. HOME MEDICATIONS: Baby aspirin and COPD medicines. He is currently on, 1. Baby aspirin. 2. Full-dose Lovenox. 3. Prednisone. 4. Thiamine. 5. Folate. Beta blockade was deferred because of COPD. He reports anaphylaxis with Cetuximab. REVIEW OF SYSTEMS: Negative for any eye, speech, facial, or extremity symptoms consistent with TIAs. Negative for known history of stroke. Negative for claudication. Positive for shortness of breath with productive cough. PHYSICAL EXAMINATION: GENERAL: He appears older than his stated age. VITAL SIGNS: Heart rate is 92, blood pressure 107/69, temperature 98.2. He is 6 feet tall, weighs 178-3/4 pounds. NECK: He has no carotid bruits. LUNGS: He has distant breath sounds. HEART: He has a regular rate and rhythm. ABDOMEN: Soft, nontender. EXTREMITIES: His radial pulses were difficult to appreciate, though his left was palpable. He has nonpalpable dorsalis pedis pulses, but palpable posterior tibials. He has no obvious varicosities. No atrophic skin changes on his lower legs or feet. He has no clubbing, cyanosis, or edema. LABORATORY EXAM: Showed a white count of 16.2, hemoglobin 13.2, hematocrit 40.9, platelets 231,000, and MCV of 97.3. His initial sodium was 124, and CO2 was 21. Electrolytes this morning, sodium 121, potassium 4.9, chloride 90, CO2 22, BUN 20, creatinine 0.67, glucose 132, bilirubin 0.9, alkaline phosphatase 95, AST 109, ALT 23. His troponin last night was 13.301 and his CK was 56.2. His chest x-ray shows marked COPD with prominent vascular markings and pleural markings, right hilar infiltrate, flattened diaphragms, cardiomegaly, no obvious aortic knob calcifications. His CT scan showed no evidence of pulmonary embolism, but did show some consolidative changes in the tip of the right middle lobe. He had scattered calcium in his proximal arch and descending aorta and then the origins of the great vessels. He has subcarinal lymph node that measures about 2.3 cm in transverse diameter as well as peribronchial adenopathy. IMPRESSION AND RECOMMENDATIONS: Severe left main disease in a patient with severe chronic obstructive pulmonary disease. We will plan on urgent CABG. Job ID: [id number]
[2020-05-30] MEDS ORDERED: Midazolam HCl 5 mg/5 ml Vial ONE (12:42)
[2020-05-30] MEDS ORDERED: Fentanyl 250 MCG/5 ML VIAL ONE (12:42)
[2020-05-30] MEDS ORDERED: Fentanyl 100 MCG/2 ML VIAL ONE (12:43)
[2020-05-30] MEDS ORDERED: PHENYLEPHRINE-NS 100 MCG/ML 10 ML SYRINGE ONE ×3 (13:56→15:58)
[2020-05-30] MEDS ORDERED: Dexmedetomidine 200 MCG/2 ML VIAL ONE (14:55)
[2020-05-30] MEDS ORDERED: Midazolam HCl 2 mg/2 ml Vial ONE (15:47)
[2020-05-30] MEDS ORDERED: Magnesium Sulfate 1 GM/2 ML VIAL ONE (15:58)
[2020-05-30] MEDS ORDERED: Heparin 30,000 units/30 ml VIAL ONE (15:58)
[2020-05-30] MEDS ORDERED: Aminocaproic Acid 5 GM/20 ML VIAL ONE (15:58)
[2020-05-30] MEDS ORDERED: Calcium Chloride 1 GM/10 ML Abboject SYRINGE ONE (15:58)
[2020-05-30] MEDS ORDERED: Nitroglycerin 50 MG/250 ML BOT ONE (15:58)
[2020-05-30] MEDS ORDERED: Vecuronium 10 MG VIAL ONE (15:58)
[2020-05-30] MEDS ORDERED: Mannitol 12.5 GM/50 ML ONE (15:58)
[2020-05-30] MEDS ORDERED: Protamine Sulfate 250 MG/25 ML VIAL ONE (15:58)
[2020-05-30] MEDS ORDERED: Sodium Bicarb 50 MEQ/50 ML Abboject 8.4% SYRINGE ONE (15:58)
[2020-05-30] MEDS ORDERED: Heparin 5,000 UNITS/ML VIAL ONE (15:58)
[2020-05-30] MEDS ORDERED: Cardioplegic Soln 1,000 ML BAG ONE (15:58)
[2020-05-30] MEDS ORDERED: Lidocaine 2% PF 100 mg/5 ml Syringe ONE (15:58)
[2020-05-30] MEDS ORDERED: PROPOFOL 200 MG/20 ML VIAL ONE (15:58)
[2020-05-30] MEDS ORDERED: Papaverine 60 MG/2 ML VIAL ONE (15:58)
[2020-05-30] MEDS ORDERED: Rocuronium Bromide 10 MG/ML (10ML VIAL) ONE (15:58)
[2020-05-30] MEDS ORDERED: Thrombin 5000 UNITS/5 ML VIAL ONE (15:58)
[2020-05-30] MEDS ORDERED: Potassium Chloride 60 MEQ/30 ML VIAL ONE (15:58)
[2020-05-30] MEDS ORDERED: Lidocaine 1% PF 5 ML VIAL ONE ×2 (15:58)
[2020-05-30 17:33] LABS: Actual Bicarbonate (HCO3a) 22.5 mEq/L (22-28); Base Excess (BEa) -4.4 mEq/L (-2.0 to +3.0); CO2 Tension 48.3 mmHg (35.0-45.0); Calcium, Ionized (arterial) 1.32 mmol/L (1.12-1.30); O2 Tension (PaO2), arterial 222.1 mmHg (> 80.0); Potassium - ABG Lab 4.97 mmol/L (3.70-5.30); pH, Arterial 7.29 (7.35-7.45)
[2020-05-30 17:35] LABS: Puncture Site Arterial Line
[2020-05-30 17:36] LABS: ALV-art Gradient 74.025 mmHg (0-20)
[2020-05-30] MEDS ORDERED: Iopamidol 370 76% 100 ML VIAL ONE (17:47)
[2020-05-30] MEDS ORDERED: Albumin 5% 250 ML ONE (17:47)
[2020-05-30] MEDS ORDERED: Acetaminophen 325 MG TAB PO PRN (17:49)
[2020-05-30] MEDS ORDERED: Guaifenesin DM 100-10/5 ML UDCUP PO PRN (17:49)
[2020-05-30] MEDS ORDERED: Hetastarch 6% 500 ML 500 ML IVPB PRN (17:49)
[2020-05-30] MEDS ORDERED: Potassium Chloride 20 MEQ/100 ML PREMIX BAG IVPB PRN (17:49)
[2020-05-30] MEDS ORDERED: Nitroglycerin 50 MG/250 ML BOT 250 ML IVPB PRN (17:49)
[2020-05-30] MEDS ORDERED: Bisacodyl 10 MG SUPP PR PRN (17:49)
[2020-05-30] MEDS ORDERED: Promethazine HCl 25 MG/ML VIAL IM PRN (17:49)
[2020-05-30] MEDS ORDERED: hydrALAZINE 20 MG/ML VIAL SLOW IVP PRN (17:49)
[2020-05-30] MEDS ORDERED: niCARdipine 25 MG in Sodium Chloride 0.9% 250 ML 240 ML IVPB PRN (17:49)
[2020-05-30] MEDS ORDERED: Mag-Al 1200 mg/1200 mg/30 ML UDCUP PO PRN (17:49)
[2020-05-30] MEDS ORDERED: Bisacodyl 5 MG TAB PO PRN (17:49)
[2020-05-30] MEDS ORDERED: Post-Op Insulin Drip Protocol IVPB ONE (17:49)
[2020-05-30] MEDS ORDERED: HYDROcodone/Acetaminophen 5/325 mg Tablet PO PRN ×2 (17:49)
[2020-05-30] MEDS ORDERED: Fentanyl 100 MCG/2 ML VIAL SLOW IVP PRN ×2 (17:49)
[2020-05-30] MEDS ORDERED: Morphine 2 MG/ML VIAL SLOW IVP PRN ×2 (17:49→19:00)
[2020-05-30 18:02] LABS: Hemoglobin 11.5 g/dL (14.0-18.0); Mean Corpuscular HGB CONC 33.2 g/dL (32.0-36.0); Mean Corpuscular Hemoglobin 32.5 pg (27.0-31.0); Mean Corpuscular Volume 98.1 fL (78.0-98.0); Mean Platelet Volume 8.9 fL (7.4-10.4); Platelet Count 168 thou/uL (130-400); RBC Distribution Width 11.3 % (11.5-14.5); Red Blood Cell (RBC) Count 3.55 mill/uL (4.70-6.10); White Blood Cell (WBC) Count 22.3 thou/uL (4.8-10.8)
[2020-05-30 18:06] LABS: INR-International Normal Ratio 1.3; PTT 31.6 sec (22.9-36.1)
[2020-05-30 18:24] LABS: Anion Gap 11 mmol/L (10-20); BUN (Urea Nitrogen) 21 mg/dL (8.4-25.7); Calc. Creatinine Clearance 132 mL/min (70-130); Calcium 8.6 mg/dL (7.8-10.44); Carbon Dioxide 22 mmol/L (23-31); Chloride 101 mmol/L (98-107); Glucose 155 mg/dL (80-115); Potassium 5.2 mmol/L (3.5-5.1); Sodium 129 mmol/L (136-145)
[2020-05-30 18:28] LABS: Band 15 % (5-11); Lymphocytes 8 % (21-51); MDiff Complete? YES; Monocytes 2 % (0-10); Myelocyte 5 % (0-0); Neutrophil 66 % (42-75); Platelet Morphology Comment Appears Adequate; RBC Morphology Normal; Reactive Lymphocytes 4 % (0-10)
[2020-05-30] MEDS ORDERED: HUMULIN R 100 UNITS in Sodium Chloride 0.9% 100 ML IVPB SCH (18:30)
[2020-05-30] MEDS ORDERED: Dextrose 50% Abboject 50 ML SYRINGE SLOW IVP PRN (18:30)
[2020-05-30] MEDS ORDERED: Dextrose 5% in Water 1,000 ML IV PRN (18:30)
--- NOTE | 2020-05-30 18:31 | PDOC.HOSPP ---
- Subjective Encounter Date: 05/30/20 Subjective: Unable to obtain ROS while patient is intubated and on Precedex - Objective Vital Signs & Weight: Vital Signs (12 hours) Temp Pulse Resp BP Pulse Ox 05/30/20 17:36 73 05/30/20 07:45 98.2 F 92 18 107/69 97 Weight Weight 178 lb 12.718 oz Result Diagrams: 05/30/20 17:35 05/30/20 17:35 Additional Labs: Accuchecks 05/30/20 05/30/20 05/30/20 15:07 14:41 13:15 POC Glucose 154 H 132 H 121 H Hospitalist ROS - Medication Medications: Active Medications Generic Name Dose Route Start Last Admin Trade Name Freq PRN Reason Stop Dose Admin Aspirin 81 mg 05/30/20 09:00 05/30/20 10:03 Aspirin Chewable 81 Mg Tab PO 81 mg DAILY CHETAN Administration Doxycycline Hyclate 100 mg 05/29/20 21:00 05/30/20 10:03 Doxycycline 100 Mg Cap PO 100 mg BID CHETAN Administration Folic Acid 1 mg 05/30/20 09:00 05/30/20 10:03 Folic Acid 1 Mg Tab PO 1 mg DAILY CHETAN Administration Iron/Minerals/Multivitamins 1 tab 05/30/20 09:00 05/30/20 10:03 Multivitamin W/ Minerals 1 Tab PO Not Given DAILY [facility] Magnesium Oxide 400 mg 05/30/20 09:00 05/30/20 10:02 Magnesium Oxide 400 Mg Tab PO 400 mg DAILY CHETAN Administration Thiamine HCl 100 mg 05/30/20 09:00 05/30/20 10:03 Thiamine 100 Mg Tab PO 100 mg DAILY CHETAN Administration Hospitalist Exam Vitals: Vital Signs (12 hours) Temp Pulse Resp BP Pulse Ox 05/30/20 17:36 73 05/30/20 07:45 98.2 F 92 18 107/69 97 Weight Weight 178 lb 12.718 oz General - other findings: Sedated and intubated Eye: PERRL, anicteric sclera ENT: normocephalic atraumatic Neck: supple Heart: RRR, no murmur, no gallops, no rubs Heart - other findings: Chest tube in place, left subclavian central line in place Respiratory: CTAB, no wheezes, no rales, no ronchi Gastrointestinal: soft, non-tender, non-distended Extremities: no clubbing, no edema Skin - other findings: Cold extremities Psychiatric - other findings: Sedated Hosp A/P (1) Head and neck cancer Code(s): C76.0 - MALIGNANT NEOPLASM OF HEAD, FACE AND NECK Status: Acute (2) COPD (chronic obstructive pulmonary disease) Status: Acute (3) Hypertension Code(s): I10 - ESSENTIAL (PRIMARY) HYPERTENSION Status: Acute (4) Hyponatremia Code(s): E87.1 - HYPO-OSMOLALITY AND HYPONATREMIA Status: Acute (5) CHF (congestive heart failure) Code(s): I50.9 - HEART FAILURE, UNSPECIFIED Status: Acute (6) NSTEMI (non-ST elevated myocardial infarction) Code(s): I21.4 - NON-ST ELEVATION (NSTEMI) MYOCARDIAL INFARCTION Status: Acute - Plan Assessment Patient is a 64-year-old male with a past medical history of tobacco smoking since age 6, throat cancer status post radiation, and COPD. Presented as a direct admit from [facility] where he was seen for chest pain. On evaluation he was found to have a troponin of 0.197 and was transferred to [facility] for further evaluation. Since his arrival, his troponin has been uptrending and reached a maximum of 13. He underwent a coronary angiogram which revealed left main disease with presence of an ulcerated plaque causing at least 90% occlusion. He was taken urgently to the OR for a CABG. intraoperative course complicated by hypotension. Returned from the OR intubated, and on Levophed. He is also receiving albumin infusion. NSTEMI Status post CABG Coronary artery disease History of tobacco smoking History of throat cancer COPD Hypertension Possible CHF Plan: Continue ICU stay while intubated History of throat cancer status with radiation makes him high risk for airway complication Pulmonary is on board Started patient on empiric Zosyn due to findings of new infiltrates on chest x- ray Follow-up blood cultures and lactic acid Continue Levophed and titrate to keep map above 65 Discontinue nicardipine infusion Continue Precedex for sedation Start DVT and GI prophylaxis
--- NOTE | 2020-05-30 18:32 | RAD ---
SUPINE PORTABLE CHEST: 05/30/20 INDICATIONS: Postop sternotomy. COMPARISON: 05/29/20. ET tube has tip above jesse. There is a central line overlying the SVC. There is patchy infiltrate in the left upper lobe which is a new finding. Right perihilar atelectasis or infiltrate again noted. There is infiltrative changes in the medial ri ght lung base. Postop sternotomy change. IMPRESSION: Left upper lobe infiltrate appears new. Right perihilar and right medial basilar infiltrate noted. Cl ose follow-up recommended. POS: AGW
[2020-05-30] MEDS ORDERED: Piperacillin/Tazobactam 3.375 GM in Sodium Chloride 0.9% 100 ML IVPB SCH (18:45)
[2020-05-30 18:50] LABS: Potassium 5.5 mmol/L (3.5-5.1)
[2020-05-30] MEDS ORDERED: Fentanyl CADD 100 ML IV SCH (19:00)
[2020-05-30] MEDS ORDERED: Lorazepam 2 MG/ML VIAL SLOW IVP PRN (19:00)
[2020-05-30] MEDS ORDERED: Propofol 1,000 MG/100 ML VIAL IV PRN (19:00)
[2020-05-30] MEDS ORDERED: Fentanyl BOLUS 250 ML IVPB PRN (19:00)
[2020-05-30] MEDS ORDERED: DISCONTINUE PREVIOUS NARCOTIC PAIN MEDICATIONS AND BENZODIAZEPINES FS SCH (19:00)
[2020-05-30] MEDS ORDERED: methylPREDNISolone Sod Succ 40 MG VIAL IVP SCH (19:00)
[2020-05-30] MEDS ORDERED: Propofol BOLUS 1,000 MG/100 ML VIAL IV PRN (19:00)
--- NOTE | 2020-05-30 19:05 | OP ---
DATE OF PROCEDURE: 05/30/2020 PROCEDURES PERFORMED: Emergent coronary artery bypass grafting x3, left internal mammary artery to the mid left anterior descending and sequential reverse greater saphenous vein graft from aorta to the first obtuse marginal to the posterolateral branch of the right coronary artery. PREOPERATIVE DIAGNOSES: Left main coronary artery disease with ongoing post infarction angina. POSTOPERATIVE DIAGNOSES: Left main coronary artery disease with ongoing post infarction angina. CASE PICKER: Edward Kim MD ANESTHESIA: General endotracheal anesthesia. INDICATIONS: The patient is a 64-year-old male with severe COPD, who recently completed radiation therapy for throat cancer. Over the last month, he has been having worsening shortness of breath that he attributed to his COPD. It become resistant to his typical nebulizer and rescue inhaler regimen. He presented with a combination of severe shortness of breath and chest tightness and ruled in for myocardial infarction. His pain has improved, but not completely resolved. Cardiac catheterization demonstrated a high-grade distal left main lesion with more modest disease in the right coronary and a small diagonal isolated between the left main and LAD lesion. He has a decreased LV function with hypokinesis of his anterior wall, apex, and septum on echocardiography. FINDINGS: Pump time 65 minutes. Cross-clamp time 37 minutes. Hyperexpanded lungs. Good quality MELISA with good flow. Good quality saphenous vein. The LAD was about 2 mm vessel that was good quality after hard plaquing throughout its proximal and midportion down to the last diagonal of the first obtuse marginal was about a 1.5 mm good quality vessel. The second diagonal was about a 1.5 mm vessel that ran in close proximity to the grafted OM and had palpable disease in it. The right coronary system through much of the PDA to the AV groove had hard plaque in it. The true PDA was about a 1 mm vessel. The posterolateral branch that was grafted was about 2 mm vessel. DESCRIPTION OF PROCEDURE: After informed consent was obtained, the patient was taken to the operating room, placed in supine position on the operating table. After the induction of general anesthesia, his left greater saphenous vein was ultrasonographically mapped and marked. His left upper chest was prepped and draped in sterile fashion. He was placed in Trendelenburg and triple-lumen central line kit was used to place a left subclavian line by the Seldinger technique. All 3 ports easily aspirated and flushed. The line was secured with suture. The patient's torso, groins, and lower extremities were prepped and draped in sterile fashion. The left greater saphenous vein was harvested from knee to groin endoscopically through a port site incision just above the knee and prepared for use as a graft. That port site incision was closed in layers of subcutaneous and subcuticular Vicryl. A median sternotomy was performed. The left pleura was mobilized. A rent was made several centimeters from the xiphoid cephalad in the course of exposing the MELISA. It was a fairly good quality vessel with a good pulse in it. It was mobilized as a skeletonized in-situ graft from the level of the xiphoid to just beyond the subclavian vein controlling side branches with small hemoclips. The patient was heparinized. The mammary was ligated and divided distally. There was good flow through it and it dilated nicely with instillation of intraluminal papaverine solution. The mammary bed was inspected for hemostasis. The rent in the pleura was repaired with 6-0 Prolene suture. The mediastinal reflections of the pleura rather easily developed and it appeared that the mammary was of adequately to reach the LAD. The MELISA retractor was replaced with a Olsen retractor. The pericardium was opened and marsupialized. The aorta was palpated and soft. A double concentric pursestring of 2-0 Ethibond was placed in ascending aorta just within the pericardial reflection and a single pursestring was placed in the right atrial appendage. Aortic and venous cannulae were inserted and secured by their pursestrings. Cardiopulmonary bypass was instituted and the patient was systemically cooled. The heart was examined. The vessels to be bypassed were identified. A longitudinal slit was made in the pericardium anterior to the left phrenic nerve through which the mammary was passed. A point on the LAD was chosen for anastomosis, where it became soft, fairly good quality vessel. The lungs were reinflated and the heart was allowed to fill and it again appeared that the inside two mammary would be of adequate length to reach the LAD in spite of the hyperexpanded lungs. The plane between the aorta and the pulmonary artery was developed. The vein was evaluated because of held distally on the right coronary system well out onto the epicardial surface of the heart in the posterolateral distribution. It was questionable whether the amount of harvested vein would be adequate for two separate vein grafts whether the posterolateral graft was brought along the right side of the heart or the left, but it was clearly enough to allow for either a sequential grafting technique or a wide technique. An aortic cross-clamp was applied and cardioplegia was administered through an aortic root needle. When arrest have been achieved, attention was turned to the posterolateral branch of the RCA. It was exposed and opened just distal to some plaquing beyond the AV groove, reverse saphenous vein was anastomosed to it end-to-side with running 6-0 Prolene suture and the anastomosis tested by flushing cold cardioplegia down the graft. It appeared that it was a shorter length to the aorta coming around the left side of the heart, but it is still borderline whether the harvested length of vein to be adequate for two separate grafts brought off the aorta. It was opted to construct a sequential graft to the first OM. The OM was exposed and opened and a corresponding anatomy was made in the posterolateral vein graft. A [id number]-[id number] anastomosis between the two was then constructed with the axis of the anastomosis perpendicular to the axis of the coronary. The LAD was then opened at the transition between hard plaquing and soft vessel just beyond a large diagonal. The mammary was anastomosed there end-to-side with running 7-0 Prolene and tacked to the epicardium. The aortic cross-clamp was replaced with a partial occluding clamp and aortotomy was made in the ascending aorta with a scalpel and punch incorporating the root needle site. The sequential vein graft was anastomosed there end-to-side with running 6-0 Prolene suture and marked with small hemoclips. The partial occluding clamp was removed. The vein graft was de-aired and the bulldog removed from it. The anastomoses were inspected for hemostasis. The posterior pericardial drain was brought out through a separate incision and secured with suture. Right atrial and right ventricular temporary epicardial pacing wires were placed and the patient was then from cardiopulmonary bypass using atrial pacing as his intrinsic heart rate at that point was a sinus rhythm in the mid 40s. He easily from cardiopulmonary bypass with pacing and a Levophed drip. The aortic and venous cannulae were removed and the pursestring secured. Protamine was very slowly administered. Lidocaine suppressed some ventricular ectopy that was beginning to appear and the patient's contractility gradually improved. The aortic and venous cannulae removed and the pursestring secured. When hemostasis was adequate, an anterior mediastinal drain was placed. It was not feasible to completely cover the vein graft or to close the pericardium completely. The mediastinal fat was draped over the innominate vein, aortic cannulation site, and aorta. A loose pericardial closure was affected with 2-0 Vicryl. The cut surfaces of the sternum were treated with vancomycin paste and platelet rich GPS. The sternum was reapproximated with a combination of simple and [id number] #7 stainless steel wires. Soft tissue was irrigated and treated with platelet poor GPS. The fascia was closed over the wires with a running #1 Vicryl. Subcutaneous tissue was reapproximated with running 2-0 Vicryl, and skin was closed with 3-0 Vicryl subcuticular suture. Dermabond and dressings were applied. The patient was then transported to the ICU in stable condition. Job ID: [id number]
[2020-05-30 19:40] LABS: Lactic Acid 1.3 mmol/L (0.5-2.2)
[2020-05-30] MEDS ORDERED: Fentanyl CADD 100 ML ONE (19:41)
[2020-05-30] MEDS: Ketorolac Tromethamine 30 MG/ML VIAL IVP SCH (19:52)
[2020-05-30] MEDS: Sodium Chloride 0.9% 1,000 ML IV SCH (19:53)
[2020-05-30] MEDS: Insulin Regular 300 UNITS/3 ML VIAL SC PRN (20:07)
[2020-05-30] MEDS: Enoxaparin Sodium 40 MG/0.4 ML SYRINGE SC SCH (20:40)
[2020-05-30] MEDS: Famotidine/PF 20 mg/2ml Vial SLOW IVP SCH (20:40)
[2020-05-30] MEDS: Docusate 100 MG CAP PO SCH (20:41)
[2020-05-30] MEDS ORDERED: Famotidine/PF 20 mg/2ml Vial SLOW IVP SCH (21:00)
[2020-05-30 23:10] LABS: Hemoglobin 10.6 g/dL (14.0-18.0)
[2020-05-30 23:33] LABS: Potassium 5.5 mmol/L (3.5-5.1)
[2020-05-31] MEDS: Insulin Regular 300 UNITS/3 ML VIAL SC PRN ×3 (00:50→21:19)
[2020-05-31] MEDS: Ketorolac Tromethamine 30 MG/ML VIAL IVP SCH ×3 (01:13→11:17)
[2020-05-31] MEDS: methylPREDNISolone Sod Succ 40 MG VIAL IVP SCH ×4 (01:14→21:17)
[2020-05-31] MEDS: Piperacillin/Tazobactam 3.375 GM in Sodium Chloride 0.9% 100 ML IVPB SCH ×2 (01:14→05:03)
[2020-05-31 04:17] LABS: #Lymphocytes 0.9 thou/uL (1.20-3.40); #Monocytes 0.7 thou/uL (0.11-0.59); #Neutrophils 9.8 thou/uL (1.40-6.50); %Basophils 0.2 % (0.0-1.0); %Eosinophils 0.1 % (0.0-10.0); %Monocytes 6.3 % (0.0-10.0); %Neutrophils 85.4 % (42.0-75.0); Hemoglobin 10.5 g/dL (14.0-18.0); Mean Corpuscular HGB CONC 33.6 g/dL (32.0-36.0); Mean Corpuscular Hemoglobin 32.9 pg (27.0-31.0); Mean Corpuscular Volume 97.8 fL (78.0-98.0); Platelet Count 174 thou/uL (130-400); RBC Distribution Width 11.3 % (11.5-14.5); White Blood Cell (WBC) Count 11.4 thou/uL (4.8-10.8)
[2020-05-31 04:34] LABS: Anion Gap 11 mmol/L (10-20); BUN (Urea Nitrogen) 25 mg/dL (8.4-25.7); Calc. Creatinine Clearance 110 mL/min (70-130); Carbon Dioxide 22 mmol/L (23-31); Chloride 101 mmol/L (98-107); Glucose 150 mg/dL (80-115); Potassium 5.6 mmol/L (3.5-5.1); Sodium 128 mmol/L (136-145)
[2020-05-31] MEDS: Norepinephrine 8 MG/0.9% NS 250 ML IVPB PRN ×2 (05:04→22:18)
[2020-05-31] MEDS ORDERED: Lidocaine 2% PF 100 mg/5 ml Syringe IVP SCH (08:15)
--- NOTE | 2020-05-31 08:24 | RAD ---
EXAM: CHEST ONE VIEW HISTORY: Post open heart surgery. COMPARISON: 05/30/2020 FINDINGS: Endotracheal tube, left-sided vascular catheter, mediastinal drains remain in place. Median sternotom y wires are again present. Cardiac silhouette is magnified by projection. Parenchymal airspace opacity in left suprahilar region has mildly improved but does persist. Patchy parenchymal airspace o pacity overlying the right hilar region persists. There is suggestion of small right pleural effusion with questionable minimal left pleural effusion. Mild increased density is seen at the media l left lung base. No other interval change. IMPRESSION: 1. Mild improvement in interstitial and patchy parenchymal airspace opacity left upper lung zone with persistent parenchymal airspace opacity overlying right hilar region. Findings may be related to bilateral pneumonia with mild improvement on the left. 2. Small bilateral pleural effusions. 3. Continued follow-up is recommended.
[2020-05-31] MEDS ORDERED: DC Sedation Protocol FS ONE (08:51)
[2020-05-31] MEDS: Famotidine/PF 20 mg/2ml Vial SLOW IVP SCH ×2 (09:12→21:17)
[2020-05-31] MEDS: Sodium Chloride 0.9% 1,000 ML IV SCH ×2 (09:16→19:30)
--- NOTE | 2020-05-31 09:18 | CON ---
DATE OF CONSULTATION: HISTORY OF PRESENT ILLNESS: Ruel Shelton is a 64-year-old gentleman who underwent an emergency CABG on 05/30/2020. Post CABG, I started him on steroids and neb treatments. This morning, he remains intubated on the vent, awake, responsive. His CABG was unremarkable as per surgery. The patient has known history of COPD. He had chest pain and shortness of breath and came to the hospital several days ago. Cardiac cath revealed coronary artery disease. His CAT scan and his chest x-ray showed pleural effusion, right-sided infiltrate. His sputum is relatively clear. PAST MEDICAL HISTORY: Throat cancer, treated by radiation; ongoing tobacco abuse; alcohol abuse. PAST SURGICAL HISTORY: Hip fracture. SOCIAL HISTORY: Drinks 5-6 beers a day. Apparently smoking until recently a pack a day. MEDICATIONS: Home medicines include tramadol, Motrin, apparently at some place [place]. ALLERGIES: . PHYSICAL EXAMINATION: GENERAL: He is awake, alert, responsive. VITAL SIGNS: This morning, his pulse is 110, blood pressure 130/80, respiratory rate 18. CHEST: No wheezing, no crackles. CARDIAC: Normal S1, S2. No murmurs or gallops. ABDOMEN: No masses. LABORATORY DATA: White count 11,000, H and H 10 and 30, platelet count is normal. His chemistry shows sodium 128, otherwise unremarkable. Chest x-ray shows as noted the right-sided haziness, small pleural effusion. His last blood gases postop; pO2 222, pCO2 48, pH 7.29. His sodium has been persistently low. Toxicology screen positive for cannabinoids. ASSESSMENT: Status post coronary artery bypass graft, chronic obstructive pulmonary disease, respiratory failure, abnormal chest x-ray, pleural effusion, marijuana abuse, throat cancer, ejection fraction 30% to 35%, hyponatremia. PLAN: Wean and extubate. Continue steroids, neb treatments, supportive care. Aggressive PT. This is a 45-minute critical care time. Job ID: [id number]
[2020-05-31] MEDS: Aspirin Chewable 81 MG TAB PO SCH (09:59)
[2020-05-31] MEDS: Magnesium Oxide 400 MG TAB PO SCH (10:03)
[2020-05-31] MEDS: Folic Acid 1 MG TAB PO SCH (10:14)
[2020-05-31] MEDS: Multivitamin W/ Minerals 1 TAB PO SCH (10:14)
[2020-05-31] MEDS: Docusate 100 MG CAP PO SCH ×2 (10:14→21:18)
[2020-05-31] MEDS: Thiamine 100 MG TAB PO SCH (10:14)
[2020-05-31] MEDS: Amoxicillin/Potassium Clav 500 MG TAB PO SCH ×2 (11:04→21:18)
[2020-05-31] MEDS: Doxycycline 100 MG CAP PO SCH ×2 (11:08→21:18)
[2020-05-31] MEDS: Ondansetron PF 4 MG/2 ML Vial IVP PRN (12:06)
--- NOTE | 2020-05-31 13:43 | PDOC.HOSPP ---
- Subjective Encounter Date: 05/31/20 Encounter Time: 13:38 Subjective: Mr. Shelton was seen today in follow-up post CABG. He does not have any complaints. He denies chest pain or dyspnea. - Objective Vital Signs & Weight: Vital Signs (12 hours) Temp Pulse Resp BP Pulse Ox 05/31/20 12:41 98 05/31/20 12:37 99 22 H 99 05/31/20 12:00 99 05/31/20 08:00 99.5 F 20 95 05/31/20 06:34 96 130/68 05/31/20 06:32 93 20 98 05/31/20 06:00 16 05/31/20 04:02 71 05/31/20 04:00 98.7 F 16 05/31/20 02:00 16 Weight Weight 182 lb 5.156 oz Most Recent Monitor Data Heart Rate from ECG 96 NIBP 102/76 NIBP BP-Mean 84 Respiration from ECG 24 SpO2 100 I&O: 05/30/20 05/31/20 06/01/20 06:59 06:59 06:59 Intake Total 1963.3 750 Output Total 750 260 Balance 1213.3 490 Result Diagrams: 05/31/20 04:00 05/31/20 04:00 Additional Labs: Accuchecks 05/31/20 05/31/20 05/30/20 04:24 00:43 20:04 POC Glucose 115 H 130 H 136 H 05/30/20 05/30/20 05/30/20 17:45 17:07 16:24 POC Glucose 144 H 155 H 153 H 05/30/20 05/30/20 05/30/20 15:07 14:41 14:16 POC Glucose 154 H 132 H 153 H 05/30/20 13:15 POC Glucose 121 H Hospitalist ROS - Medication Medications: Active Medications Generic Name Dose Route Start Last Admin Trade Name Freq PRN Reason Stop Dose Admin Albumin Human 25 gm 05/30/20 17:49 05/31/20 10:52 Albumin 5% 12.5 Gm/250 Ml Bot IVPB 05/31/20 17:50 25 gm Q6H PRN Administration To Maintain SBP > 90 mmHG Albuterol/Ipratropium 3 ml 05/30/20 19:00 05/31/20 12:37 Ipratropium/Albuterol Sulfate 3 Ml Neb NEB 3 ml [id number] CHETAN Administration Amoxicillin/Clavulanate Potassium 500 mg 05/31/20 09:00 05/31/20 11:04 Amoxicillin/Potassium Clav 500 Mg Tab PO 500 mg Q12HR CHETAN Administration Aspirin 81 mg 05/30/20 09:00 05/31/20 09:59 Aspirin Chewable 81 Mg Tab PO 81 mg DAILY CHETAN Administration Docusate Sodium 100 mg 05/30/20 21:00 05/31/20 10:14 Docusate 100 Mg Cap PO 100 mg BID CHETAN Administration Doxycycline Hyclate 100 mg 05/29/20 21:00 05/31/20 11:08 Doxycycline 100 Mg Cap PO 100 mg BID CHETAN Administration Enoxaparin Sodium 40 mg 05/30/20 21:00 05/30/20 20:40 Enoxaparin Sodium 40 Mg/0.4 Ml Syringe SC 40 mg 2100 CHETAN Administration Famotidine 20 mg 05/30/20 21:00 05/31/20 09:12 Famotidine/Pf 20 Mg/2ml Vial SLOW IVP 20 mg BID CHETAN Administration Folic Acid 1 mg 05/30/20 09:00 05/31/20 10:14 Folic Acid 1 Mg Tab PO 1 mg DAILY CHETAN Administration Sodium Chloride 1,000 mls @ 75 mls/hr 05/30/20 17:49 05/31/20 09:16 Normal Saline 0.9% IV 1,000 mls .[id number] CHETAN Administration Norepinephrine Bitartrate 250 mls @ 0 mls/hr 05/30/20 17:49 05/31/20 05:04 Levophed IVPB 250 mls PRN PRN Administration To maintain SBP > 90 mmHG Protocol Titrate Dexmedetomidine HCl 400 mcg/ 100 mls @ 0 mls/hr 05/30/20 20:15 05/31/20 04:20 Sodium Chloride IVPB 100 mls INF CHETAN Administration Protocol Titrate Insulin Human Regular 0 units 05/30/20 18:30 05/31/20 00:50 Insulin Regular 300 Units/3 Ml Vial SC 2 unit Q4H PRN Administration POST OP SLIDING SCALE Protocol Iron/Minerals/Multivitamins 1 tab 05/30/20 09:00 05/31/20 10:14 Multivitamin W/ Minerals 1 Tab PO 1 tab DAILY CHETAN Administration Magnesium Oxide 400 mg 05/30/20 09:00 05/31/20 10:03 Magnesium Oxide 400 Mg Tab PO 400 mg DAILY CHETAN Administration Methylprednisolone Sodium Succinate 40 mg 05/31/20 09:00 05/31/20 11:15 Methylprednisolone Sod Succ 40 Mg Vial IVP 40 mg BID CHETAN Administration Ondansetron HCl 4 mg 05/30/20 17:49 05/31/20 12:06 Ondansetron Pf 4 Mg/2 Ml Vial IVP 4 mg Q6H PRN Administration Nausea/Vomiting Sodium Chloride 10 ml 05/30/20 21:00 05/31/20 11:15 Flush - Normal Saline 10 Ml Syringe IVF 10 ml Q12HR CHETAN Administration Thiamine HCl 100 mg 05/30/20 09:00 05/31/20 10:14 Thiamine 100 Mg Tab PO 100 mg DAILY CHETAN Administration Hospitalist Exam Vitals: Vital Signs (12 hours) Temp Pulse Resp BP Pulse Ox 05/31/20 12:41 98 05/31/20 12:37 99 22 H 99 05/31/20 12:00 99 05/31/20 08:00 99.5 F 20 95 05/31/20 06:34 96 130/68 05/31/20 06:32 93 20 98 05/31/20 06:00 16 05/31/20 04:02 71 05/31/20 04:00 98.7 F 16 05/31/20 02:00 16 Weight Weight 182 lb 5.156 oz Most Recent Monitor Data Heart Rate from ECG 96 NIBP 102/76 NIBP BP-Mean 84 Respiration from ECG 24 SpO2 100 Eye: PERRL, anicteric sclera Heart: RRR, no murmur, no gallops, no rubs Respiratory: rhonchi (at) Gastrointestinal: soft, non-tender, non-distended, normal bowel sounds, no palpable masses, no hepatomegaly Extremities: no cyanosis, no edema Hosp A/P (1) S/P CABG x 2 Code(s): Z95.1 - PRESENCE OF AORTOCORONARY BYPASS GRAFT Status: Acute (2) COPD (chronic obstructive pulmonary disease) Status: Chronic (3) Hypertension Code(s): I10 - ESSENTIAL (PRIMARY) HYPERTENSION Status: Chronic (4) Hyponatremia Code(s): E87.1 - HYPO-OSMOLALITY AND HYPONATREMIA Status: Acute (5) NSTEMI (non-ST elevated myocardial infarction) Code(s): I21.4 - NON-ST ELEVATION (NSTEMI) MYOCARDIAL INFARCTION Status: Acute (6) Alcohol abuse Code(s): F10.10 - ALCOHOL ABUSE, UNCOMPLICATED Status: Chronic - Plan * NSTEMI- post CABG- he is clinically stable- He is on a low dose Levophed to support his blood pressure * COPD- continue Solumedrol- Albuterol inhaled, as needed * Continue Doxycycline * Insulin drip to management blood glucose * Hyponatremia- improved- this is chronic and he is around his baseline level for several years after review of his records * Alcohol abuse- continue thiamine and folic acid, and will place on the ASE Protocol
--- NOTE | 2020-05-31 14:01 | PDOC.CPN ---
- Subjective Date: 05/31/20 Time: 13:55 Interval history: He was extubated this morning. Breathing on his own. Still needing levophed. - Review of Systems General: denies: fever/chills, weight/appetite/sleep changes, night sweats, fatigue Respiratory: denies: cough, congestion, shortness of breath, exercise intolerance Cardiovascular: denies: chest pain, palpitation, edema, paroxysmal nocturnal dyspnea, orthopnea Gastrointestinal: denies: nausea, vomiting, diarrhea, constipation, abd pain, GI bleeding Musculoskeletal: reports: pain. denies: tenderness, stiffness, swelling, arthritis/arthralgias Neurological: denies: numbness, syncope, seizure, weakness - Objective Allergies/Adverse Reactions: Allergies Allergy/AdvReac Type Severity Reaction Status Date / Time cetuximab [From Erbitux] Allergy Anaphylaxis Verified 09/09/19 23:11 Visit Medications: Current Medications Acetaminophen (Acetaminophen 325 Mg Tab) 650 mg PO Q6H PRN PRN Reason: Headache/Fever Or Mild Pain Al Hydroxide/Mg Hydroxide (Mag-Al 1200 Mg/1200 Mg/30 Ml Udcup) 30 ml PO Q4H PRN PRN Reason: Indigestion Albumin Human (Albumin 5% 12.5 Gm/250 Ml Bot) 12.5 gm IVPB Q6H PRN PRN Reason: To Maintain SBP> 90 mmHG Stop: 05/31/20 17:50 Albumin Human (Albumin 5% 12.5 Gm/250 Ml Bot) 25 gm IVPB Q6H PRN PRN Reason: To Maintain SBP > 90 mmHG Stop: 05/31/20 17:50 Last Admin: 05/31/20 10:52 Dose: 25 gm Documented by: Albuterol Sulfate (Albuterol 200 Puff (6.7gm Inhaler)) 2 puff INH [id number] PRN PRN Reason: Wheezing Albuterol/Ipratropium (Ipratropium/Albuterol Sulfate 3 Ml Neb) 3 ml NEB [id number] [facility] Last Admin: 05/31/20 12:37 Dose: 3 ml Documented by: Amoxicillin/Clavulanate Potassium (Amoxicillin/Potassium Clav 500 Mg Tab) 500 mg PO Q12HR [facility] Last Admin: 05/31/20 11:04 Dose: 500 mg Documented by: Aspirin (Aspirin Chewable 81 Mg Tab) 81 mg PO DAILY [facility] Last Admin: 05/31/20 09:59 Dose: 81 mg Documented by: Bisacodyl (Bisacodyl 5 Mg Tab) 10 mg PO Q12H PRN PRN Reason: Constipation Bisacodyl (Bisacodyl 10 Mg Supp) 10 mg [place] Q12H PRN PRN Reason: Constipation Dextrose/Water (Dextrose 50% Abboject 50 Ml Syringe) 25 gm SLOW IVP PRN PRN PRN Reason: PER HYPOGLYCEMIC PROTOCOL Docusate Sodium (Docusate 100 Mg Cap) 100 mg PO BID [facility] Last Admin: 05/31/20 10:14 Dose: 100 mg Documented by: Doxycycline Hyclate (Doxycycline 100 Mg Cap) 100 mg PO BID [facility] Last Admin: 05/31/20 11:08 Dose: 100 mg Documented by: Enoxaparin Sodium (Enoxaparin Sodium 40 Mg/0.4 Ml Syringe) 40 mg SC 2100 [facility] Last Admin: 05/30/20 20:40 Dose: 40 mg Documented by: Famotidine (Famotidine/Pf 20 Mg/2ml Vial) 20 mg SLOW IVP BID [facility] Last Admin: 05/31/20 09:12 Dose: 20 mg Documented by: Folic Acid (Folic Acid 1 Mg Tab) 1 mg PO DAILY [facility] Last Admin: 05/31/20 10:14 Dose: 1 mg Documented by: Glucagon (Glucagon 1 Mg/Ml Vial) 1 mg SC PRN PRN PRN Reason: PER HYPOGLYCEMIC PROTOCOL Guaifenesin/Dextromethorphan (Guaifenesin Dm 100-10/5 Ml Udcup) 15 ml PO Q4H PRN PRN Reason: Cough Hydralazine HCl (Hydralazine 20 Mg/Ml Vial) 10 mg SLOW IVP Q6H PRN PRN Reason: To Maintain SBP< 140mmHG Hetastarch/Sodium Chloride (Hespan) 500 mls @ 0 mls/hr IVPB PRN PRN PRN Reason: To Maintain SBP > 90mmHg Stop: 05/31/20 17:14 Nitroglycerin/Dextrose (Nitroglycerin 50 Mg/250 Ml Bot) 250 mls @ 0 mls/hr IVPB PRN PRN; Protocol PRN Reason: To Maintain SBP< 140mmHG Sodium Chloride (Normal Saline 0.9%) 1,000 mls @ 75 mls/hr IV .[id number] [facility] Last Admin: 05/31/20 09:16 Dose: 1,000 mls Documented by: Norepinephrine Bitartrate (Levophed) 250 mls @ 0 mls/hr IVPB PRN PRN; Protocol PRN Reason: To maintain SBP > 90 mmHG Last Admin: 05/31/20 05:04 Dose: 250 mls Documented by: Insulin Human Regular 100 (units/ Sodium Chloride) 101 mls @ 0 mls/hr IVPB INF [facility]; Protocol Dextrose/Water (D5w) 1,000 mls @ 0 mls/hr IV INF PRN PRN Reason: PRN HYPOGLYCEMIC PROTOCOL Dexmedetomidine HCl 400 mcg/ (Sodium Chloride) 100 mls @ 0 mls/hr IVPB INF [facility]; Protocol Last Admin: 05/31/20 04:20 Dose: 100 mls Documented by: Insulin Human Regular (Insulin Regular 300 Units/3 Ml Vial) 0 units SC Q4H PRN; Protocol PRN Reason: POST OP SLIDING SCALE Last Admin: 05/31/20 00:50 Dose: 2 unit Documented by: Iron/Minerals/Multivitamins (Multivitamin W/ Minerals 1 Tab) 1 tab PO DAILY [facility] Last Admin: 05/31/20 10:14 Dose: 1 tab Documented by: Magnesium Oxide (Magnesium Oxide 400 Mg Tab) 400 mg PO DAILY [facility] Last Admin: 05/31/20 10:03 Dose: 400 mg Documented by: Methylprednisolone Sodium Succinate (Methylprednisolone Sod Succ 40 Mg Vial) 40 mg IVP BID [facility] Last Admin: 05/31/20 11:15 Dose: 40 mg Documented by: Mometasone Furoate/Formoterol Fumar (Mometasone 200 Mcg/Formoterol 5 Mcg 120 Puff Inhaler) 2 puff INH BID-RT [facility] Ondansetron HCl (Ondansetron Pf 4 Mg/2 Ml Vial) 4 mg IVP Q6H PRN PRN Reason: Nausea/Vomiting Last Admin: 05/31/20 12:06 Dose: 4 mg Documented by: Potassium Chloride (Potassium Chloride 20 Meq/100 Ml Premix Bag) 20 meq IVPB PRN PRN PRN Reason: K level </= 4.0 Promethazine HCl (Promethazine Hcl 25 Mg/Ml Vial) 6.25 mg IM Q4H PRN PRN Reason: Nausea/Vomiting Propofol (Propofol 1,000 Mg/100 Ml Vial) 1,000 mg IV INF PRN; Protocol PRN Reason: TO ACHIEVE GOAL RASS Stop: 06/29/20 19:00 Sodium Chloride (Flush - Normal Saline 10 Ml Syringe) 10 ml IVF Q12HR [facility] Last Admin: 05/31/20 11:15 Dose: 10 ml Documented by: Thiamine HCl (Thiamine 100 Mg Tab) 100 mg PO DAILY [facility] Last Admin: 05/31/20 10:14 Dose: 100 mg Documented by: Vital Signs & Weight: Vital Signs Temp Pulse Resp BP Pulse Ox 05/31/20 12:41 98 05/31/20 12:37 99 22 H 99 05/31/20 12:00 99 05/31/20 08:00 99.5 F 20 95 05/31/20 06:34 96 130/68 05/31/20 06:32 93 20 98 05/31/20 06:00 16 05/31/20 04:02 71 05/31/20 04:00 98.7 F 16 05/31/20 02:00 16 Weight 182 lb 5.156 oz - Physical Exam General: alert & oriented x3 HEENT: mucus membranes moist Neck: supple neck Cardiac: regular rate and rhythm Lungs: bibasilar rales Neuro: grossly intact Abdomen: active bowel sounds Extremities: no edema Skin: clear Musculoskeletal: no pain - Labs Result Diagrams: 05/31/20 04:00 05/31/20 04:00 Troponin/CKMB CK-MB (CK-2) 56.2 ng/mL (0-6.6) H* 05/29/20 22:25 Troponin I 13.301 ng/mL (< 0.028) H* 05/29/20 22:25 - Telemetry Sinus rhythms and dysrhythmias: sinus rhythm - Assessment/Plan Assessment/Plan: 1. NSTEMI 2. Severe LM disease. 3. COPD 4. Alcohol use. PLAN: - Continue supportive care. - ASA and statin for life - BB and ACEI once BP allow.
[2020-05-31] MEDS: Mometasone 200 MCG/Formoterol 5 MCG 120 PUFF INHALER INH SCH (19:06)
[2020-05-31] MEDS ORDERED: Dextrose 70% in Water 71.43 ML, PREMASOL 10% 425 ML, Sterile Water Injection 503.57 ML IV SCH (20:30)
[2020-05-31] MEDS ORDERED: ADMIXTURE FEE IV SCH (20:45)
[2020-05-31] MEDS ORDERED: DEXTROSE IV SCH (20:45)
[2020-05-31] MEDS ORDERED: WATER IV SCH (20:45)
[2020-05-31] MEDS ORDERED: PREMASOL IV SCH (20:45)
[2020-05-31] MEDS ORDERED: [UNRECOGNIZED DRUG - OTHER] IV SCH (20:45)
[2020-05-31] MEDS: Enoxaparin Sodium 40 MG/0.4 ML SYRINGE SC SCH (21:16)
[2020-06-01 04:39] LABS: #Lymphocytes 0.9 thou/uL (1.20-3.40); #Monocytes 0.9 thou/uL (0.11-0.59); #Neutrophils 10.8 thou/uL (1.40-6.50); %Eosinophils 0.1 % (0.0-10.0); %Lymphocytes 6.8 % (21.0-51.0); %Neutrophils 86.1 % (42.0-75.0); Hemoglobin 9.4 g/dL (14.0-18.0); Mean Corpuscular HGB CONC 33.1 g/dL (32.0-36.0); Mean Corpuscular Hemoglobin 32.4 pg (27.0-31.0); Mean Platelet Volume 9.5 fL (7.4-10.4); Platelet Count 137 thou/uL (130-400); RBC Distribution Width 11.4 % (11.5-14.5); White Blood Cell (WBC) Count 12.5 thou/uL (4.8-10.8)
[2020-06-01 04:58] LABS: Anion Gap 11 mmol/L (10-20); BUN (Urea Nitrogen) 31 mg/dL (8.4-25.7); Calc. Creatinine Clearance 121 mL/min (70-130); Carbon Dioxide 24 mmol/L (23-31); Chloride 104 mmol/L (98-107); Glucose 147 mg/dL (80-115); Potassium 5.1 mmol/L (3.5-5.1); Sodium 134 mmol/L (136-145)
[2020-06-01] MEDS ORDERED: Morphine 2 MG/ML VIAL SLOW IVP SCH (05:30)
[2020-06-01] MEDS: Ondansetron PF 4 MG/2 ML Vial IVP PRN (05:31)
[2020-06-01] MEDS: Mometasone 200 MCG/Formoterol 5 MCG 120 PUFF INHALER INH SCH ×2 (07:59→18:48)
[2020-06-01] MEDS: Famotidine/PF 20 mg/2ml Vial SLOW IVP SCH ×2 (08:09→20:24)
[2020-06-01] MEDS: methylPREDNISolone Sod Succ 40 MG VIAL IVP SCH ×2 (08:09→20:24)
[2020-06-01] MEDS ORDERED: Amino Acids 4.25 %/Dextrose 5% 2,000 ML BAG IV SCH (09:00)
--- NOTE | 2020-06-01 09:05 | EKG ---
Test Reason : Blood Pressure : / mmHG Vent. Rate : 070 BPM Atrial Rate : 070 BPM P-R Int : 134 ms QRS Dur : 108 ms QT Int : 444 ms P-R-T Axes : 064 -48 098 degrees QTc Int : 479 ms Normal sinus rhythm Possible Left atrial enlargement Incomplete right bundle branch block Left anterior fascicular block Septal infarct (cited on or before 29-MAY-2020) Abnormal ECG When compared with ECG of 29-MAY-2020 16:13, (Unconfirmed) Premature ventricular complexes are no longer Present Vent. rate has decreased BY 35 BPM Serial changes of Septal infarct Present Confirmed by YUE GEORGE, DR. Quiros ([id number]) on 06/01/2020 9:04:57 AM Referred By: SHAD Confirmed By:DR. Chula TURNER MD
--- NOTE | 2020-06-01 10:07 | PDOC.CPN ---
- Objective Allergies/Adverse Reactions: Allergies Allergy/AdvReac Type Severity Reaction Status Date / Time cetuximab [From Erbitux] Allergy Anaphylaxis Verified 09/09/19 23:11 Visit Medications: Current Medications Acetaminophen (Acetaminophen 325 Mg Tab) 650 mg PO Q6H PRN PRN Reason: Headache/Fever Or Mild Pain Al Hydroxide/Mg Hydroxide (Mag-Al 1200 Mg/1200 Mg/30 Ml Udcup) 30 ml PO Q4H PRN PRN Reason: Indigestion Albuterol Sulfate (Albuterol 200 Puff (6.7gm Inhaler)) 2 puff INH [id number] PRN PRN Reason: Wheezing Albuterol/Ipratropium (Ipratropium/Albuterol Sulfate 3 Ml Neb) 3 ml NEB [id number] [facility] Last Admin: 06/01/20 07:59 Dose: 3 ml Documented by: Amoxicillin/Clavulanate Potassium (Amoxicillin/Potassium Clav 500 Mg Tab) 500 mg PO Q12HR [facility] Last Admin: 05/31/20 21:18 Dose: Not Given Documented by: Aspirin (Aspirin Chewable 81 Mg Tab) 81 mg PO DAILY [facility] Last Admin: 05/31/20 09:59 Dose: 81 mg Documented by: Bisacodyl (Bisacodyl 5 Mg Tab) 10 mg PO Q12H PRN PRN Reason: Constipation Bisacodyl (Bisacodyl 10 Mg Supp) 10 mg RI Q12H PRN PRN Reason: Constipation Dextrose/Water (Dextrose 50% Abboject 50 Ml Syringe) 25 gm SLOW IVP PRN PRN PRN Reason: PER HYPOGLYCEMIC PROTOCOL Docusate Sodium (Docusate 100 Mg Cap) 100 mg PO BID [facility] Last Admin: 05/31/20 21:18 Dose: Not Given Documented by: Doxycycline Hyclate (Doxycycline 100 Mg Cap) 100 mg PO BID [facility] Last Admin: 05/31/20 21:18 Dose: Not Given Documented by: Enoxaparin Sodium (Enoxaparin Sodium 40 Mg/0.4 Ml Syringe) 40 mg SC 2100 [facility] Last Admin: 05/31/20 21:16 Dose: 40 mg Documented by: Famotidine (Famotidine/Pf 20 Mg/2ml Vial) 20 mg SLOW IVP BID [facility] Last Admin: 06/01/20 08:09 Dose: 20 mg Documented by: Folic Acid (Folic Acid 1 Mg Tab) 1 mg PO DAILY [facility] Last Admin: 05/31/20 10:14 Dose: 1 mg Documented by: Glucagon (Glucagon 1 Mg/Ml Vial) 1 mg SC PRN PRN PRN Reason: PER HYPOGLYCEMIC PROTOCOL Guaifenesin/Dextromethorphan (Guaifenesin Dm 100-10/5 Ml Udcup) 15 ml PO Q4H PRN PRN Reason: Cough Hydralazine HCl (Hydralazine 20 Mg/Ml Vial) 10 mg SLOW IVP Q6H PRN PRN Reason: To Maintain SBP< 140mmHG Nitroglycerin/Dextrose (Nitroglycerin 50 Mg/250 Ml Bot) 250 mls @ 0 mls/hr IVPB PRN PRN; Protocol PRN Reason: To Maintain SBP< 140mmHG Norepinephrine Bitartrate (Levophed) 250 mls @ 0 mls/hr IVPB PRN PRN; Protocol PRN Reason: To maintain SBP > 90 mmHG Last Admin: 05/31/20 22:18 Dose: 250 mls Documented by: Insulin Human Regular 100 (units/ Sodium Chloride) 101 mls @ 0 mls/hr IVPB INF [facility]; Protocol Dextrose/Water (D5w) 1,000 mls @ 0 mls/hr IV INF PRN PRN Reason: PRN HYPOGLYCEMIC PROTOCOL Dexmedetomidine HCl 400 mcg/ (Sodium Chloride) 100 mls @ 0 mls/hr IVPB INF [facility]; Protocol Last Admin: 05/31/20 04:20 Dose: 100 mls Documented by: Sodium Chloride (Normal Saline 0.9%) 1,000 mls @ 30 mls/hr IV .Q24H [facility] Last Admin: 05/31/20 19:30 Dose: 1,000 mls Documented by: Miscellaneous Medication 1 each/ Dextrose/Water/ Amino Acids/ Sterile Water 1,000 mls @ 50 mls/hr IV INF [facility] Last Admin: 06/01/20 00:20 Dose: 1,000 mls Documented by: Insulin Human Regular (Insulin Regular 300 Units/3 Ml Vial) 0 units SC Q4H PRN; Protocol PRN Reason: POST OP SLIDING SCALE Last Admin: 05/31/20 21:19 Dose: 2 unit Documented by: Iron/Minerals/Multivitamins (Multivitamin W/ Minerals 1 Tab) 1 tab PO DAILY [facility] Last Admin: 05/31/20 10:14 Dose: 1 tab Documented by: Magnesium Oxide (Magnesium Oxide 400 Mg Tab) 400 mg PO DAILY [facility] Last Admin: 05/31/20 10:03 Dose: 400 mg Documented by: Methylprednisolone Sodium Succinate (Methylprednisolone Sod Succ 40 Mg Vial) 40 mg IVP BID [facility] Last Admin: 06/01/20 08:09 Dose: 40 mg Documented by: Mometasone Furoate/Formoterol Fumar (Mometasone 200 Mcg/Formoterol 5 Mcg 120 Puff Inhaler) 2 puff INH BID-RT [facility] Last Admin: 06/01/20 07:59 Dose: 2 puff Documented by: Ondansetron HCl (Ondansetron Pf 4 Mg/2 Ml Vial) 4 mg IVP Q6H PRN PRN Reason: Nausea/Vomiting Last Admin: 06/01/20 05:31 Dose: 4 mg Documented by: Potassium Chloride (Potassium Chloride 20 Meq/100 Ml Premix Bag) 20 meq IVPB PRN PRN PRN Reason: K level </= 4.0 Promethazine HCl (Promethazine Hcl 25 Mg/Ml Vial) 6.25 mg IM Q4H PRN PRN Reason: Nausea/Vomiting Propofol (Propofol 1,000 Mg/100 Ml Vial) 1,000 mg IV INF PRN; Protocol PRN Reason: TO ACHIEVE GOAL RASS Stop: 06/29/20 19:00 Sodium Chloride (Flush - Normal Saline 10 Ml Syringe) 10 ml IVF Q12HR [facility] Last Admin: 06/01/20 08:10 Dose: 10 ml Documented by: Thiamine HCl (Thiamine 100 Mg Tab) 100 mg PO DAILY [facility] Last Admin: 05/31/20 10:14 Dose: 100 mg Documented by: Vital Signs & Weight: Vital Signs Temp Pulse Resp Pulse Ox 06/01/20 07:59 96 13 100 06/01/20 07:17 97 06/01/20 07:00 98.4 F 06/01/20 04:00 98.2 F 06/01/20 01:56 95 06/01/20 01:54 95 20 06/01/20 00:00 98.3 F Weight 184 lb 8.43 oz - Labs Result Diagrams: 06/01/20 04:15 06/01/20 04:15 Troponin/CKMB CK-MB (CK-2) 56.2 ng/mL (0-6.6) H* 05/29/20 22:25 Troponin I 13.301 ng/mL (< 0.028) H* 05/29/20 22:25 - Assessment/Plan Assessment/Plan: 1. NSTEMI 2. Severe LM disease. 3. COPD 4. Alcohol use. 5. s/p CABG
[2020-06-01] MEDS ORDERED: Fentanyl 100 MCG/2 ML VIAL SLOW IVP PRN (10:24)
[2020-06-01] MEDS ORDERED: Furosemide 40 MG/4 ML VIAL SLOW IVP SCH (10:30)
--- NOTE | 2020-06-01 10:32 | RAD ---
PORTABLE CHEST: HISTORY: Postop open heart surgery. COMPARISON: Prior day's study. FINDINGS: The endotracheal tube has been removed. Left subclavian line remains in position. Parenchymal lung changes are stable. IMPRESSION: Stable exam other than removal of endotracheal tube. POS: ALBERT
[2020-06-01] MEDS ORDERED: Artificial Tear Sol 15 ML BOT EA EYE PRN (10:36)
[2020-06-01] MEDS: Fentanyl 100 MCG/2 ML VIAL SLOW IVP PRN ×2 (10:55→13:36)
[2020-06-01] MEDS: Doxycycline 100 MG CAP PO SCH ×2 (13:16→20:24)
[2020-06-01] MEDS: Folic Acid 1 MG TAB PO SCH (13:17)
[2020-06-01] MEDS: Amoxicillin/Potassium Clav 500 MG TAB PO SCH ×2 (13:17→20:24)
[2020-06-01] MEDS: Magnesium Oxide 400 MG TAB PO SCH (13:17)
[2020-06-01] MEDS: Thiamine 100 MG TAB PO SCH (13:17)
[2020-06-01] MEDS: Aspirin Chewable 81 MG TAB PO SCH (13:17)
[2020-06-01] MEDS: Docusate 100 MG CAP PO SCH ×2 (13:18→20:25)
[2020-06-01] MEDS: Multivitamin W/ Minerals 1 TAB PO SCH (13:18)
--- NOTE | 2020-06-01 13:23 | PRG ---
DATE OF SERVICE: 06/01/2020 SUBJECTIVE: The patient is doing okay. Complains of some pain in the sternum. PHYSICAL EXAMINATION: VITAL SIGNS: Temperature 98.6, pulse 100, blood pressure 99/77. HEENT: Exam is unremarkable. NECK: No JVD. CHEST: Fairly clear anteriorly. ABDOMEN: Soft. His x-ray shows some fluid and fissure on the right. LABORATORY DATA: White blood cell count 12, hematocrit 28.4, and platelet count 137. Sodium 134, potassium 5.1, BUN 31, creatinine 0.7, glucose 147. ASSESSMENT: 1. Post CABG. 2. Chronic obstructive pulmonary disease. 3. Left pleural effusion. PLAN: Continue current treatment. Hopefully to floor soon. Job ID: [id number]
[2020-06-01] MEDS ORDERED: HYDROcodone/Acetaminophen 5/325 mg Tablet PO PRN (13:40)
--- NOTE | 2020-06-01 14:26 | EKG ---
Test Reason : NSTEMI Blood Pressure : / mmHG Vent. Rate : 105 BPM Atrial Rate : 105 BPM P-R Int : 136 ms QRS Dur : 098 ms QT Int : 370 ms P-R-T Axes : 071 -47 103 degrees QTc Int : 489 ms Sinus tachycardia with frequent Premature ventricular complexes Possible Left atrial enlargement Left anterior fascicular block Left ventricular hypertrophy with repolarization abnormality Cannot rule out Anteroseptal infarct , age undetermined Abnormal ECG Confirmed by ODALIS SANCHEZ DO ([id number]), sewing department supervisor CODY HINES ([id number]) on 06/01/2020 2:26:34 PM Referred By: DANIEL Confirmed By:ODALIS SANCHEZ DO
--- NOTE | 2020-06-01 14:48 | PDOC.HOSPP ---
- Subjective Encounter Date: 06/01/20 Encounter Time: 14:40 Subjective: f/u s/p CABG x 3v POD #2. Passed dysphagia screening per nursing/[employer] with PPN currently infusing. c/o sore chest wall especially when trying to ambulate. - Objective Vital Signs & Weight: Vital Signs (12 hours) Temp Pulse Pulse Pulse Resp BP BP 06/01/20 14:28 98 31 H 06/01/20 11:00 98.6 F 06/01/20 10:09 105 H 105 H 112/72 107/65 06/01/20 07:59 96 13 06/01/20 07:17 06/01/20 07:00 98.4 F 06/01/20 04:00 98.2 F Pulse Ox Pulse Ox Pulse Ox 06/01/20 14:28 97 06/01/20 11:00 06/01/20 10:09 98 98 06/01/20 07:59 100 06/01/20 07:17 97 06/01/20 07:00 06/01/20 04:00 Weight Admit Weight 178 lb 12.7 oz Weight 184 lb 8.4 oz Most Recent Monitor Data Heart Rate from ECG 98 NIBP 85/55 NIBP BP-Mean 65 Respiration from ECG 34 SpO2 92 I&O: 05/31/20 06/01/20 06/02/20 06:59 06:59 06:59 Intake Total 1963.3 3451 350 Output Total 750 1325 1110 Balance 1213.3 2126 -760 Result Diagrams: 06/01/20 04:15 06/01/20 04:15 Additional Labs: Accuchecks 06/01/20 06/01/20 05/31/20 04:15 00:28 14:37 POC Glucose 147 H 109 H 129 H Radiology Reviewed by me: Yes (PCXR - chronic lung changes, ETT removed) EKG Reviewed by me: Yes (Tele - SR) Hospitalist ROS - Medication Medications: Active Medications Generic Name Dose Route Start Last Admin Trade Name Freq PRN Reason Stop Dose Admin Albuterol/Ipratropium 3 ml 05/30/20 19:00 06/01/20 14:28 Ipratropium/Albuterol Sulfate 3 Ml Neb NEB 3 ml [id number] [facility] Administration Amoxicillin/Clavulanate Potassium 500 mg 05/31/20 09:00 06/01/20 13:17 Amoxicillin/Potassium Clav 500 Mg Tab PO 500 mg Q12HR [facility] Administration Artificial Tears 0 drop 06/01/20 10:36 06/01/20 10:56 Artificial Tear Jamila 15 Ml Bot EA EYE 1 drp PRN PRN Administration DRY EYES Aspirin 81 mg 05/30/20 09:00 06/01/20 13:17 Aspirin Chewable 81 Mg Tab PO 81 mg DAILY [facility] Administration Docusate Sodium 100 mg 05/30/20 21:00 06/01/20 13:18 Docusate 100 Mg Cap PO 100 mg BID [facility] Administration Doxycycline Hyclate 100 mg 05/29/20 21:00 06/01/20 13:16 Doxycycline 100 Mg Cap PO 100 mg BID [facility] Administration Enoxaparin Sodium 40 mg 05/30/20 21:00 05/31/20 21:16 Enoxaparin Sodium 40 Mg/0.4 Ml Syringe SC 40 mg 2100 [facility] Administration Famotidine 20 mg 05/30/20 21:00 06/01/20 08:09 Famotidine/Pf 20 Mg/2ml Vial SLOW IVP 20 mg BID [facility] Administration Folic Acid 1 mg 05/30/20 09:00 06/01/20 13:17 Folic Acid 1 Mg Tab PO 1 mg DAILY [facility] Administration Norepinephrine Bitartrate 250 mls @ 0 mls/hr 05/30/20 17:49 05/31/20 22:18 Levophed IVPB 250 mls PRN PRN Administration To maintain SBP > 90 mmHG Protocol Titrate Dexmedetomidine HCl 400 mcg/ 100 mls @ 0 mls/hr 05/30/20 20:15 05/31/20 04:20 Sodium Chloride IVPB 100 mls INF [facility] Administration Protocol Titrate Sodium Chloride 1,000 mls @ 30 mls/hr 05/31/20 18:46 05/31/20 19:30 Normal Saline 0.9% IV 1,000 mls .Q24H [facility] Administration Miscellaneous Medication 1 1,000 mls @ 50 mls/hr 05/31/20 20:45 06/01/20 00:20 each/ Dextrose/Water/ Amino IV 1,000 mls Acids/ Sterile Water INF [facility] Administration Insulin Human Regular 0 units 05/30/20 18:30 05/31/20 21:19 Insulin Regular 300 Units/3 Ml Vial SC 2 unit Q4H PRN Administration POST OP SLIDING SCALE Protocol Iron/Minerals/Multivitamins 1 tab 05/30/20 09:00 06/01/20 13:18 Multivitamin W/ Minerals 1 Tab PO 1 tab DAILY [facility] Administration Magnesium Oxide 400 mg 05/30/20 09:00 06/01/20 13:17 Magnesium Oxide 400 Mg Tab PO 400 mg DAILY [facility] Administration Methylprednisolone Sodium Succinate 40 mg 05/31/20 09:00 06/01/20 08:09 Methylprednisolone Sod Succ 40 Mg Vial IVP 40 mg BID [facility] Administration Mometasone Furoate/Formoterol Fumar 2 puff 05/31/20 18:30 06/01/20 07:59 Mometasone 200 Mcg/Formoterol 5 Mcg 120 Puff Inhaler INH 2 puff BID-RT [facility] Administration Ondansetron HCl 4 mg 05/30/20 17:49 06/01/20 05:31 Ondansetron Pf 4 Mg/2 Ml Vial IVP 4 mg Q6H PRN Administration Nausea/Vomiting Sodium Chloride 10 ml 05/30/20 21:00 06/01/20 08:10 Flush - Normal Saline 10 Ml Syringe IVF 10 ml Q12HR [facility] Administration Thiamine HCl 100 mg 05/30/20 09:00 06/01/20 13:17 Thiamine 100 Mg Tab PO 100 mg DAILY [facility] Administration Hospitalist Exam Vitals: Vital Signs (12 hours) Temp Pulse Pulse Pulse Resp BP BP 06/01/20 14:28 98 31 H 06/01/20 11:00 98.6 F 06/01/20 10:09 105 H 105 H 112/72 107/65 06/01/20 07:59 96 13 06/01/20 07:17 06/01/20 07:00 98.4 F 06/01/20 04:00 98.2 F Pulse Ox Pulse Ox Pulse Ox 06/01/20 14:28 97 06/01/20 11:00 06/01/20 10:09 98 98 06/01/20 07:59 100 06/01/20 07:17 97 06/01/20 07:00 06/01/20 04:00 Weight Admit Weight 178 lb 12.7 oz Weight 184 lb 8.4 oz Most Recent Monitor Data Heart Rate from ECG 98 NIBP 85/55 NIBP BP-Mean 65 Respiration from ECG 34 SpO2 92 General Appearance: NAD, awake alert Eye: PERRL, anicteric sclera ENT: normocephalic atraumatic, no oropharyngeal lesions Neck: supple, symmetric, no JVD, no thyromegaly, no lymphadenopathy Heart: RRR, no gallops, no rubs, normal peripheral pulses Heart - other findings: S1, S2 Respiratory - other findings: diminished in bases, occ rhonchi and wheezes Gastrointestinal: soft, non-tender, non-distended, normal bowel sounds, no palpable masses Extremities: no cyanosis, no clubbing, no edema Skin: normal turgor Skin - other findings: chest incision C/D/I Neurological: cranial nerve grossly intact, no new deficit Musculoskeletal: normal tone, normal strength, no muscle wasting Psychiatric: normal affect, A&O x 3 Hosp A/P (1) NSTEMI (non-ST elevated myocardial infarction) Code(s): I21.4 - NON-ST ELEVATION (NSTEMI) MYOCARDIAL INFARCTION Status: Acute Plan: s/p CABG x 3v POD #2, continue ASA/Lipitor (2) CAD (coronary artery disease) Code(s): I25.10 - ATHSCL HEART DISEASE OF [place] CORONARY ARTERY W/O ANG PCTRS Status: Chronic Plan: See above #1 (3) S/P CABG x 3 Code(s): Z95.1 - PRESENCE OF AORTOCORONARY BYPASS GRAFT Status: Acute Plan: POD #2, continue routine post-CABG protocol, OOB with rehab (4) Head and neck cancer Code(s): C76.0 - MALIGNANT NEOPLASM OF HEAD, FACE AND NECK Status: Chronic (5) Alcohol abuse Code(s): F10.10 - ALCOHOL ABUSE, UNCOMPLICATED Status: Chronic Plan: Continue ASE protocol, Thiamine/Folate/MVI (6) COPD (chronic obstructive pulmonary disease) Status: Chronic Plan: Continue routine pulmonary support, Augmentin/Duonebs/Solumedrol/Doxycycline/O2 @ 3L/min (7) Hypertension Code(s): I10 - ESSENTIAL (PRIMARY) HYPERTENSION Status: Chronic Qualifiers: Hypertension type: essential hypertension Qualified Code(s): I10 - Essential (primary) hypertension - Plan continue antibiotics, PT/OT, social insurance administrator, speech therapy, respiratory therapy, out of bed/ambulate, DVT proph w/SCDs Stable overall Continue routine post-CABG protocol Start Heart Healthy diet D/C PPN OOB with PT Continue ASA/Lipitor Pulmonary support with Solumedrol/Duonebs/Doxycycline/Augmentin AM lab: BMP, CBC
[2020-06-01] MEDS: Sodium Chloride 0.9% 1,000 ML IV SCH (18:14)
[2020-06-01] MEDS: HYDROcodone/Acetaminophen 5/325 mg Tablet PO PRN (20:24)
[2020-06-01] MEDS: Enoxaparin Sodium 40 MG/0.4 ML SYRINGE SC SCH (20:24)
[2020-06-01] MEDS: Atorvastatin Calcium 40 MG TAB PO SCH (20:25)
[2020-06-02 04:15] LABS: #Lymphocytes 0.8 thou/uL (1.20-3.40); #Monocytes 0.5 thou/uL (0.11-0.59); #Neutrophils 8.1 thou/uL (1.40-6.50); %Basophils 0.5 % (0.0-1.0); %Lymphocytes 8.5 % (21.0-51.0); %Monocytes 5.7 % (0.0-10.0); %Neutrophils 85.2 % (42.0-75.0); Hemoglobin 8.8 g/dL (14.0-18.0); Mean Corpuscular HGB CONC 32.6 g/dL (32.0-36.0); Mean Corpuscular Hemoglobin 32.2 pg (27.0-31.0); Mean Corpuscular Volume 98.7 fL (78.0-98.0); Mean Platelet Volume 9.6 fL (7.4-10.4); Platelet Count 129 thou/uL (130-400); RBC Distribution Width 11.2 % (11.5-14.5); Red Blood Cell (RBC) Count 2.73 mill/uL (4.70-6.10); White Blood Cell (WBC) Count 9.5 thou/uL (4.8-10.8)
[2020-06-02 04:34] LABS: Anion Gap 11 mmol/L (10-20); BUN (Urea Nitrogen) 36 mg/dL (8.4-25.7); Calc. Creatinine Clearance 125 mL/min (70-130); Carbon Dioxide 27 mmol/L (23-31); Chloride 99 mmol/L (98-107); Glucose 132 mg/dL (80-115); Potassium 4.8 mmol/L (3.5-5.1); Sodium 132 mmol/L (136-145)
[2020-06-02] MEDS: Mometasone 200 MCG/Formoterol 5 MCG 120 PUFF INHALER INH SCH ×2 (07:41→19:35)
[2020-06-02] MEDS: methylPREDNISolone Sod Succ 40 MG VIAL IVP SCH ×2 (08:55→21:11)
[2020-06-02] MEDS: Famotidine/PF 20 mg/2ml Vial SLOW IVP SCH (08:56)
[2020-06-02] MEDS: Amoxicillin/Potassium Clav 500 MG TAB PO SCH ×2 (08:57→22:06)
[2020-06-02] MEDS: Docusate 100 MG CAP PO SCH ×2 (08:57→21:09)
[2020-06-02] MEDS: Folic Acid 1 MG TAB PO SCH (08:57)
[2020-06-02] MEDS: Doxycycline 100 MG CAP PO SCH ×2 (08:57→21:09)
[2020-06-02] MEDS: Multivitamin W/ Minerals 1 TAB PO SCH (08:57)
[2020-06-02] MEDS: Thiamine 100 MG TAB PO SCH (08:57)
[2020-06-02] MEDS: Aspirin Chewable 81 MG TAB PO SCH (08:57)
[2020-06-02] MEDS: Magnesium Oxide 400 MG TAB PO SCH (08:57)
--- NOTE | 2020-06-02 10:03 | PDOC.CPN ---
- Subjective Date: 06/02/20 Time: 12:05 Interval history: Doing well seen ambulating - Objective Allergies/Adverse Reactions: Allergies Allergy/AdvReac Type Severity Reaction Status Date / Time cetuximab [From Erbitux] Allergy Anaphylaxis Verified 09/09/19 23:11 Visit Medications: Current Medications Acetaminophen (Acetaminophen 325 Mg Tab) 650 mg PO Q6H PRN PRN Reason: Headache/Fever Or Mild Pain Hydrocodone Bitart/Acetaminophen (Hydrocodone/Acetaminophen 5/325 Mg Tablet) 1 tab PO Q4H PRN PRN Reason: Mild Pain (1-3) Hydrocodone Bitart/Acetaminophen (Hydrocodone/Acetaminophen 5/325 Mg Tablet) 2 tab PO Q4H PRN PRN Reason: Moderate Pain (4-6) Last Admin: 06/01/20 20:24 Dose: 2 tab Documented by: Al Hydroxide/Mg Hydroxide (Mag-Al 1200 Mg/1200 Mg/30 Ml Udcup) 30 ml PO Q4H PRN PRN Reason: Indigestion Albuterol Sulfate (Albuterol 200 Puff (6.7gm Inhaler)) 2 puff INH [id number] PRN PRN Reason: Wheezing Albuterol/Ipratropium (Ipratropium/Albuterol Sulfate 3 Ml Neb) 3 ml NEB [id number] [facility] Last Admin: 06/02/20 07:41 Dose: 3 ml Documented by: Amoxicillin/Clavulanate Potassium (Amoxicillin/Potassium Clav 500 Mg Tab) 500 mg PO Q12HR [facility] Last Admin: 06/02/20 08:57 Dose: 500 mg Documented by: Artificial Tears (Artificial Tear Jamila 15 Ml Bot) 0 drop EA EYE PRN PRN PRN Reason: DRY EYES Last Admin: 06/01/20 10:56 Dose: 1 drp Documented by: Aspirin (Aspirin Chewable 81 Mg Tab) 81 mg PO DAILY [facility] Last Admin: 06/02/20 08:57 Dose: 81 mg Documented by: Atorvastatin Calcium (Atorvastatin Calcium 40 Mg Tab) 40 mg PO HS [facility] Last Admin: 06/01/20 20:25 Dose: 40 mg Documented by: Bisacodyl (Bisacodyl 5 Mg Tab) 10 mg PO Q12H PRN PRN Reason: Constipation Bisacodyl (Bisacodyl 10 Mg Supp) 10 mg NH Q12H PRN PRN Reason: Constipation Docusate Sodium (Docusate 100 Mg Cap) 100 mg PO BID [facility] Last Admin: 06/02/20 08:57 Dose: 100 mg Documented by: Doxycycline Hyclate (Doxycycline 100 Mg Cap) 100 mg PO BID [facility] Last Admin: 06/02/20 08:57 Dose: 100 mg Documented by: Enoxaparin Sodium (Enoxaparin Sodium 40 Mg/0.4 Ml Syringe) 40 mg SC 2100 [facility] Last Admin: 06/01/20 20:24 Dose: 40 mg Documented by: Famotidine (Famotidine/Pf 20 Mg/2ml Vial) 20 mg SLOW IVP BID [facility] Last Admin: 06/02/20 08:56 Dose: 20 mg Documented by: Folic Acid (Folic Acid 1 Mg Tab) 1 mg PO DAILY [facility] Last Admin: 06/02/20 08:57 Dose: 1 mg Documented by: Glucagon (Glucagon 1 Mg/Ml Vial) 1 mg SC PRN PRN PRN Reason: PER HYPOGLYCEMIC PROTOCOL Guaifenesin/Dextromethorphan (Guaifenesin Dm 100-10/5 Ml Udcup) 15 ml PO Q4H PRN PRN Reason: Cough Hydralazine HCl (Hydralazine 20 Mg/Ml Vial) 10 mg SLOW IVP Q6H PRN PRN Reason: To Maintain SBP< 140mmHG Nitroglycerin/Dextrose (Nitroglycerin 50 Mg/250 Ml Bot) 250 mls @ 0 mls/hr IVPB PRN PRN; Protocol PRN Reason: To Maintain SBP< 140mmHG Norepinephrine Bitartrate (Levophed) 250 mls @ 0 mls/hr IVPB PRN PRN; Protocol PRN Reason: To maintain SBP > 90 mmHG Last Admin: 05/31/20 22:18 Dose: 250 mls Documented by: Dexmedetomidine HCl 400 mcg/ (Sodium Chloride) 100 mls @ 0 mls/hr IVPB INF [facility]; Protocol Last Admin: 05/31/20 04:20 Dose: 100 mls Documented by: Sodium Chloride (Normal Saline 0.9%) 1,000 mls @ 30 mls/hr IV .Q24H [facility] Last Admin: 06/01/20 18:14 Dose: Not Given Documented by: Insulin Human Regular (Insulin Regular 300 Units/3 Ml Vial) 0 units SC Q4H PRN; Protocol PRN Reason: POST OP SLIDING SCALE Last Admin: 05/31/20 21:19 Dose: 2 unit Documented by: Iron/Minerals/Multivitamins (Multivitamin W/ Minerals 1 Tab) 1 tab PO DAILY [facility] Last Admin: 06/02/20 08:57 Dose: 1 tab Documented by: Magnesium Oxide (Magnesium Oxide 400 Mg Tab) 400 mg PO DAILY [facility] Last Admin: 06/02/20 08:57 Dose: 400 mg Documented by: Methylprednisolone Sodium Succinate (Methylprednisolone Sod Succ 40 Mg Vial) 40 mg IVP BID [facility] Last Admin: 06/02/20 08:55 Dose: 40 mg Documented by: Mometasone Furoate/Formoterol Fumar (Mometasone 200 Mcg/Formoterol 5 Mcg 120 Puff Inhaler) 2 puff INH BID-RT [facility] Last Admin: 06/02/20 07:41 Dose: 2 puff Documented by: Ondansetron HCl (Ondansetron Pf 4 Mg/2 Ml Vial) 4 mg IVP Q6H PRN PRN Reason: Nausea/Vomiting Last Admin: 06/01/20 05:31 Dose: 4 mg Documented by: Potassium Chloride (Potassium Chloride 20 Meq/100 Ml Premix Bag) 20 meq IVPB PRN PRN PRN Reason: K level </= 4.0 Promethazine HCl (Promethazine Hcl 25 Mg/Ml Vial) 6.25 mg IM Q4H PRN PRN Reason: Nausea/Vomiting Propofol (Propofol 1,000 Mg/100 Ml Vial) 1,000 mg IV INF PRN; Protocol PRN Reason: TO ACHIEVE GOAL RASS Stop: 06/29/20 19:00 Sodium Chloride (Flush - Normal Saline 10 Ml Syringe) 10 ml IVF Q12HR [facility] Last Admin: 06/02/20 08:58 Dose: 10 ml Documented by: Thiamine HCl (Thiamine 100 Mg Tab) 100 mg PO DAILY [facility] Last Admin: 06/02/20 08:57 Dose: 100 mg Documented by: Vital Signs & Weight: Vital Signs Temp Pulse Resp Pulse Ox 06/02/20 07:41 91 10 L 100 06/02/20 07:36 100 06/02/20 07:00 98.0 F 06/02/20 05:04 17 06/02/20 04:00 98.7 F 06/02/20 00:54 96 06/02/20 00:00 98.6 F Admit Weight 178 lb 12.7 oz Weight 188 lb 0.869 oz - Physical Exam General: alert & oriented x3, other (older than stated age) Neck: supple neck Cardiac: regular rate, regular rhythm Lungs: normal exam - Labs Result Diagrams: 06/02/20 03:20 06/02/20 03:20 Troponin/CKMB CK-MB (CK-2) 56.2 ng/mL (0-6.6) H* 05/29/20 22:25 Troponin I 13.301 ng/mL (< 0.028) H* 05/29/20 22:25 - Assessment/Plan Assessment/Plan: 1. NSTEMI 2. Severe LM disease. 3. COPD 4. Alcohol use. 5. s/p CABG No vhanges Doing well IS and PT Transfer to tele
--- NOTE | 2020-06-02 10:32 | RAD ---
PORTABLE CHEST: COMPARISON: Prior day's study. HISTORY: Postop open heart surgery. Respiratory distress. FINDINGS: Heart size is within normal limits. Postop sternotomy changes are present. Parenchymal lung changes are stable as compared to the prior exam. No new process identified. IMPRESSION: Stable exam. POS: OFF
[2020-06-02] MEDS ORDERED: Nitroglycerin 0.4 MG TAB (25 Tab Bottle) SL PRN (10:50)
[2020-06-02] MEDS ORDERED: Zolpidem Tartrate 5 MG TAB PO PRN (10:50)
[2020-06-02] MEDS ORDERED: Bisacodyl 5 MG TAB PO PRN (10:50)
[2020-06-02] MEDS ORDERED: Milk Of Magnesia 30 ML UDCUP PO PRN (10:50)
[2020-06-02] MEDS ORDERED: Mag-Al 1200 mg/1200 mg/30 ML UDCUP PO PRN (10:50)
[2020-06-02] MEDS ORDERED: Bisacodyl 10 MG SUPP PR PRN (10:50)
[2020-06-02] MEDS ORDERED: Mineral Oil ENEMA PR PRN (10:50)
[2020-06-02] MEDS ORDERED: Guaifenesin DM 100-10/5 ML UDCUP PO PRN (10:50)
[2020-06-02] MEDS ORDERED: diphenhydrAMINE 25 MG CAP PO PRN (10:50)
[2020-06-02] MEDS ORDERED: Furosemide 40 MG/4 ML VIAL SLOW IVP SCH (11:15)
--- NOTE | 2020-06-02 11:48 | PRG ---
DATE OF SERVICE: 06/02/2020 SUBJECTIVE: The patient is doing quite well. His mediastinal tubes were removed today. OBJECTIVE: VITAL SIGNS: Temperature 98.0, pulse 98, blood pressure 108/74, saturation 95%. HEENT: Unremarkable. NECK: No JVD. CHEST: Clear. CARDIAC: S1, S2. Regular. ABDOMEN: Soft. EXTREMITIES: No edema. LABORATORY DATA: White blood cell count 9.5, hematocrit 26.9, and platelet count 129. Sodium 132, potassium 4.8, BUN 36, creatinine 0.7, glucose 132. ASSESSMENT: 1. Post coronary artery bypass grafting. 2. Stable respiratory status. 3. Chronic obstructive pulmonary disease. PLAN: Transfer to the floor any time. Job ID: [id number]
--- NOTE | 2020-06-02 13:45 | PDOC.HOSPP ---
- Subjective Encounter Date: 06/02/20 Encounter Time: 13:45 Subjective: f/u for NSTEMI/s/p CABG x 3v POD #3. Ambulating with PT, some chest wall soreness. - Objective Vital Signs & Weight: Vital Signs (12 hours) Temp Pulse Resp Pulse Ox 06/02/20 12:00 95 06/02/20 11:00 97.9 F 06/02/20 07:41 91 10 L 100 06/02/20 07:36 100 06/02/20 07:00 98.0 F 06/02/20 05:04 17 06/02/20 04:00 98.7 F Weight Admit Weight 178 lb 12.7 oz Weight 188 lb 0.869 oz Most Recent Monitor Data Heart Rate from ECG 101 NIBP 111/75 NIBP BP-Mean 87 Respiration from ECG 27 SpO2 95 I&O: 06/01/20 06/02/20 06/03/20 06:59 06:59 06:59 Intake Total 3451 2179 700 Output Total 1325 2035 1035 Balance 2126 144 -335 Result Diagrams: 06/02/20 03:20 06/02/20 03:20 Additional Labs: Laboratory Tests 05/30/20 05/30/20 05/31/20 17:35 22:59 04:00 WBC 22.3 H 11.4 H Hgb 11.5 L 10.6 L 10.5 L Sodium BUN 06/01/20 06/01/20 04:15 04:15 WBC 12.5 H Hgb 9.4 L Sodium 134 L BUN 31 H Radiology Reviewed by me: Yes (PCXR - post-op changes noted, no new process) EKG Reviewed by me: Yes (Tele - SR) Hospitalist ROS - Medication Medications: Active Medications Generic Name Dose Route Start Last Admin Trade Name Freq PRN Reason Stop Dose Admin Hydrocodone Bitart/Acetaminophen 1 tab 06/01/20 13:40 06/02/20 13:30 Hydrocodone/Acetaminophen 5/325 Mg Tablet PO 1 tab Q4H PRN Administration Mild Pain (1-3) Hydrocodone Bitart/Acetaminophen 2 tab 06/01/20 13:41 06/01/20 20:24 Hydrocodone/Acetaminophen 5/325 Mg Tablet PO 2 tab Q4H PRN Administration Moderate Pain (4-6) Albuterol/Ipratropium 3 ml 05/30/20 19:00 06/02/20 07:41 Ipratropium/Albuterol Sulfate 3 Ml Neb NEB 3 ml [id number] CHETAN Administration Amoxicillin/Clavulanate Potassium 500 mg 05/31/20 09:00 06/02/20 08:57 Amoxicillin/Potassium Clav 500 Mg Tab PO 500 mg Q12HR CHETAN Administration Artificial Tears 0 drop 06/01/20 10:36 06/01/20 10:56 Artificial Tear Jamila 15 Ml Bot EA EYE 1 drp PRN PRN Administration DRY EYES Atorvastatin Calcium 40 mg 06/01/20 21:00 06/01/20 20:25 Atorvastatin Calcium 40 Mg Tab PO 40 mg HS CHETAN Administration Docusate Sodium 100 mg 05/30/20 21:00 06/02/20 08:57 Docusate 100 Mg Cap PO 100 mg BID CHETAN Administration Doxycycline Hyclate 100 mg 05/29/20 21:00 06/02/20 08:57 Doxycycline 100 Mg Cap PO 100 mg BID CHETAN Administration Enoxaparin Sodium 40 mg 05/30/20 21:00 06/01/20 20:24 Enoxaparin Sodium 40 Mg/0.4 Ml Syringe SC 40 mg 2100 CHETAN Administration Folic Acid 1 mg 05/30/20 09:00 06/02/20 08:57 Folic Acid 1 Mg Tab PO 1 mg DAILY CHETAN Administration Iron/Minerals/Multivitamins 1 tab 05/30/20 09:00 06/02/20 08:57 Multivitamin W/ Minerals 1 Tab PO 1 tab DAILY CHETAN Administration Magnesium Oxide 400 mg 05/30/20 09:00 06/02/20 08:57 Magnesium Oxide 400 Mg Tab PO 400 mg DAILY CHETAN Administration Methylprednisolone Sodium Succinate 40 mg 05/31/20 09:00 06/02/20 08:55 Methylprednisolone Sod Succ 40 Mg Vial IVP 40 mg BID CHETAN Administration Mometasone Furoate/Formoterol Fumar 2 puff 05/31/20 18:30 06/02/20 07:41 Mometasone 200 Mcg/Formoterol 5 Mcg 120 Puff Inhaler INH 2 puff BID-RT CHETAN Administration Ondansetron HCl 4 mg 05/30/20 17:49 06/01/20 05:31 Ondansetron Pf 4 Mg/2 Ml Vial IVP 4 mg Q6H PRN Administration Nausea/Vomiting Sodium Chloride 10 ml 05/30/20 21:00 06/02/20 08:58 Flush - Normal Saline 10 Ml Syringe IVF 10 ml Q12HR CHETAN Administration Thiamine HCl 100 mg 05/30/20 09:00 06/02/20 08:57 Thiamine 100 Mg Tab PO 100 mg DAILY CHETAN Administration Hospitalist Exam Vitals: Vital Signs (12 hours) Temp Pulse Resp Pulse Ox 06/02/20 12:00 95 06/02/20 11:00 97.9 F 06/02/20 07:41 91 10 L 100 06/02/20 07:36 100 06/02/20 07:00 98.0 F 06/02/20 05:04 17 06/02/20 04:00 98.7 F Weight Admit Weight 178 lb 12.7 oz Weight 188 lb 0.869 oz Most Recent Monitor Data Heart Rate from ECG 101 NIBP 111/75 NIBP BP-Mean 87 Respiration from ECG 27 SpO2 95 General Appearance: NAD, awake alert Eye: PERRL, anicteric sclera ENT: normocephalic atraumatic, no oropharyngeal lesions Neck: supple, symmetric, no JVD, no thyromegaly, no lymphadenopathy Heart: RRR, no gallops, no rubs, normal peripheral pulses Heart - other findings: S1, S2 Respiratory - other findings: diminished in bases, occ wheeze/rhonchi Gastrointestinal: soft, non-tender, non-distended, normal bowel sounds, no palpable masses Extremities: no cyanosis, no clubbing, no edema Skin: normal turgor Skin - other findings: chest incision C/D/I Neurological: cranial nerve grossly intact, no new deficit Musculoskeletal: normal tone, generalized weakness Psychiatric: A&O x 3, flat affect Hosp A/P (1) NSTEMI (non-ST elevated myocardial infarction) Code(s): I21.4 - NON-ST ELEVATION (NSTEMI) MYOCARDIAL INFARCTION Status: Acute Plan: s/p CABG x 3v POD #3 (2) CAD (coronary artery disease) Code(s): I25.10 - ATHSCL HEART DISEASE OF [place] CORONARY ARTERY W/O ANG PCTRS Status: Chronic Plan: Continue ASA/Lipitor (3) S/P CABG x 3 Code(s): Z95.1 - PRESENCE OF AORTOCORONARY BYPASS GRAFT Status: Acute Plan: POD #3 (4) Head and neck cancer Code(s): C76.0 - MALIGNANT NEOPLASM OF HEAD, FACE AND NECK Status: Chronic (5) Alcohol abuse Code(s): F10.10 - ALCOHOL ABUSE, UNCOMPLICATED Status: Chronic (6) COPD (chronic obstructive pulmonary disease) Status: Chronic (7) Hypertension Code(s): I10 - ESSENTIAL (PRIMARY) HYPERTENSION Status: Chronic Qualifiers: Hypertension type: essential hypertension Qualified Code(s): I10 - Essential (primary) hypertension - Plan PT/OT, child welfare social worker, respiratory therapy, incentive spirometry, out of bed/ambulate, DVT proph w/SCDs Stable overall Continue routine post-CABG protocol Start Heart Healthy diet OOB with PT Continue ASA/Lipitor Pulmonary support with Solumedrol/Duonebs/Doxycycline/Augmentin Transfer to telemetry
[2020-06-02] MEDS: Atorvastatin Calcium 40 MG TAB PO SCH (21:09)
[2020-06-02] MEDS: Famotidine 20 MG TAB PO SCH (21:09)
[2020-06-02] MEDS: Enoxaparin Sodium 40 MG/0.4 ML SYRINGE SC SCH (21:10)
[2020-06-03] MEDS: HYDROcodone/Acetaminophen 5/325 mg Tablet PO PRN (00:13)
[2020-06-03] MEDS: Mometasone 200 MCG/Formoterol 5 MCG 120 PUFF INHALER INH SCH ×2 (08:02→19:09)
[2020-06-03] MEDS: Docusate 100 MG CAP PO SCH ×2 (08:38→22:54)
[2020-06-03] MEDS: Famotidine 20 MG TAB PO SCH ×2 (08:38→22:54)
[2020-06-03] MEDS: Amoxicillin/Potassium Clav 500 MG TAB PO SCH ×2 (08:38→22:54)
[2020-06-03] MEDS: Magnesium Oxide 400 MG TAB PO SCH (08:38)
[2020-06-03] MEDS: Folic Acid 1 MG TAB PO SCH (08:38)
[2020-06-03] MEDS: Aspirin 325 mg Enteric Coated Tablet PO SCH (08:38)
[2020-06-03] MEDS: Thiamine 100 MG TAB PO SCH (08:39)
[2020-06-03] MEDS: Multivitamin W/ Minerals 1 TAB PO SCH (08:39)
--- NOTE | 2020-06-03 08:42 | PRG ---
DATE OF SERVICE: 06/03/2020 SUBJECTIVE: Ruel Shelton is status post CABG, who is doing well, less short of breath, less cough. OBJECTIVE: VITAL SIGNS: Temperature , pulse 101, respiratory rate 18, sats 90% on room air, and blood pressure 119/59. CHEST: Bilateral crackles. No wheezing. CARDIAC: Normal S1, S2. No gallops. ABDOMEN: No mass. ASSESSMENT AND PLAN: 1. Status post coronary artery bypass grafting, congestive heart failure. 2. Tobacco abuse, chronic obstructive pulmonary disease. 3. Alcohol abuse. We will switch over to oral prednisone or Augmentin. He has Breo inhaler which he will use when he goes home. Disposition home when okay with Cardiology. Job ID: [id number]
[2020-06-03] MEDS: Furosemide 40 MG TAB PO SCH ×2 (08:51→14:59)
[2020-06-03] MEDS: Lisinopril 2.5 MG TAB PO SCH (08:51)
[2020-06-03] MEDS ORDERED: Furosemide 20 MG TAB PO SCH (09:00)
[2020-06-03] MEDS ORDERED: Lisinopril 5 MG TAB PO SCH (09:00)
[2020-06-03 15:06] VITALS: BMI 24.5
--- NOTE | 2020-06-03 15:32 | PDOC.HOSPP ---
- Subjective Encounter Date: 06/03/20 Encounter Time: 15:25 Subjective: f/u for CAD s/p CABG x 3v POD #4. No new issues other than chest soreness. - Objective Vital Signs & Weight: Vital Signs (12 hours) Temp Pulse Pulse Pulse Pulse Resp BP 06/03/20 14:01 89 118 H 06/03/20 11:08 98.2 F 100 20 06/03/20 09:25 108 H 117 H 102 H 124/75 06/03/20 08:03 101 H 18 06/03/20 08:01 97.6 F 103 H 20 06/03/20 03:55 97.5 F L 89 16 BP BP Pulse Ox 06/03/20 14:01 94 L 06/03/20 11:08 113/67 06/03/20 09:25 125/61 06/03/20 08:03 92 L 06/03/20 08:01 111/59 L 92 L 06/03/20 03:55 109/60 99 Weight Admit Weight 178 lb 12.7 oz Weight 181 lb Most Recent Monitor Data Heart Rate from ECG 107 NIBP 117/91 NIBP BP-Mean 99 Respiration from ECG 19 SpO2 82 I&O: 06/02/20 06/03/20 06/04/20 06:59 06:59 06:59 Intake Total 2179 1060 Output Total 2035 1585 400 Balance 144 -525 -400 Result Diagrams: 06/02/20 03:20 06/02/20 03:20 Additional Labs: Accuchecks 06/01/20 05/31/20 05/31/20 10:07 21:13 17:16 POC Glucose 118 H 131 H 138 H Laboratory Tests 05/30/20 05/30/20 05/31/20 17:35 22:59 04:00 WBC 22.3 H 11.4 H Hgb 11.5 L 10.6 L 10.5 L Sodium BUN 06/01/20 06/01/20 04:15 04:15 WBC 12.5 H Hgb 9.4 L Sodium 134 L BUN 31 H EKG Reviewed by me: Yes (Tele - SR) Hospitalist ROS - Medication Medications: Active Medications Generic Name Dose Route Start Last Admin Trade Name Freq PRN Reason Stop Dose Admin Hydrocodone Bitart/Acetaminophen 1 tab 06/01/20 13:40 06/02/20 13:30 Hydrocodone/Acetaminophen 5/325 Mg Tablet PO 1 tab Q4H PRN Administration Mild Pain (1-3) Hydrocodone Bitart/Acetaminophen 2 tab 06/01/20 13:41 06/03/20 00:13 Hydrocodone/Acetaminophen 5/325 Mg Tablet PO 2 tab Q4H PRN Administration Moderate Pain (4-6) Albuterol/Ipratropium 3 ml 05/30/20 19:00 06/03/20 14:01 Ipratropium/Albuterol Sulfate 3 Ml Neb NEB 3 ml [id number] CHETAN Administration Amoxicillin/Clavulanate Potassium 500 mg 05/31/20 09:00 06/03/20 08:38 Amoxicillin/Potassium Clav 500 Mg Tab PO 500 mg Q12HR CHETAN Administration Artificial Tears 0 drop 06/01/20 10:36 06/01/20 10:56 Artificial Tear Jamila 15 Ml Bot EA EYE 1 drp PRN PRN Administration DRY EYES Aspirin 325 mg 06/03/20 09:00 06/03/20 08:38 Aspirin 325 Mg Enteric Coated Tablet PO 325 mg DAILY CHETAN Administration Atorvastatin Calcium 40 mg 06/01/20 21:00 06/02/20 21:09 Atorvastatin Calcium 40 Mg Tab PO 40 mg HS CHETAN Administration Docusate Sodium 100 mg 05/30/20 21:00 06/03/20 08:38 Docusate 100 Mg Cap PO 100 mg BID CHETAN Administration Enoxaparin Sodium 40 mg 05/30/20 21:00 06/02/20 21:10 Enoxaparin Sodium 40 Mg/0.4 Ml Syringe SC 40 mg 2100 CHETAN Administration Famotidine 20 mg 06/02/20 21:00 06/03/20 08:38 Famotidine 20 Mg Tab PO 20 mg BID CHETAN Administration Folic Acid 1 mg 05/30/20 09:00 06/03/20 08:38 Folic Acid 1 Mg Tab PO 1 mg DAILY CHETAN Administration Furosemide 40 mg 06/03/20 09:00 06/03/20 14:59 Furosemide 40 Mg Tab PO 06/04/20 14:01 40 mg 0900,1400 CHETAN Administration Iron/Minerals/Multivitamins 1 tab 05/30/20 09:00 06/03/20 08:39 Multivitamin W/ Minerals 1 Tab PO 1 tab DAILY CHETAN Administration Lisinopril 2.5 mg 06/03/20 09:00 06/03/20 08:51 Lisinopril 2.5 Mg Tab PO 2.5 mg DAILY CHETAN Administration Magnesium Oxide 400 mg 05/30/20 09:00 06/03/20 08:38 Magnesium Oxide 400 Mg Tab PO 400 mg DAILY CHETAN Administration Mometasone Furoate/Formoterol Fumar 2 puff 05/31/20 18:30 06/03/20 08:02 Mometasone 200 Mcg/Formoterol 5 Mcg 120 Puff Inhaler INH 2 puff BID-RT CHETAN Administration Ondansetron HCl 4 mg 05/30/20 17:49 06/01/20 05:31 Ondansetron Pf 4 Mg/2 Ml Vial IVP 4 mg Q6H PRN Administration Nausea/Vomiting Sodium Chloride 10 ml 05/30/20 21:00 06/03/20 08:39 Flush - Normal Saline 10 Ml Syringe IVF 10 ml Q12HR CHETAN Administration Thiamine HCl 100 mg 05/30/20 09:00 06/03/20 08:39 Thiamine 100 Mg Tab PO 100 mg DAILY CHETAN Administration Hospitalist Exam Vitals: Vital Signs (12 hours) Temp Pulse Pulse Pulse Pulse Resp BP 06/03/20 14:01 89 118 H 06/03/20 11:08 98.2 F 100 20 06/03/20 09:25 108 H 117 H 102 H 124/75 06/03/20 08:03 101 H 18 06/03/20 08:01 97.6 F 103 H 20 06/03/20 03:55 97.5 F L 89 16 BP BP Pulse Ox 06/03/20 14:01 94 L 06/03/20 11:08 113/67 06/03/20 09:25 125/61 06/03/20 08:03 92 L 06/03/20 08:01 111/59 L 92 L 06/03/20 03:55 109/60 99 Weight Admit Weight 178 lb 12.7 oz Weight 181 lb Most Recent Monitor Data Heart Rate from ECG 107 NIBP 117/91 NIBP BP-Mean 99 Respiration from ECG 19 SpO2 82 General Appearance: NAD, awake alert Eye: PERRL, anicteric sclera ENT: normocephalic atraumatic, no oropharyngeal lesions Neck: supple, symmetric, no JVD, no thyromegaly, no lymphadenopathy Heart: RRR, no gallops, no rubs, normal peripheral pulses Heart - other findings: S1, S2 Respiratory: no rales Respiratory - other findings: diminished in bases, occ exp wheeze Gastrointestinal: soft, non-tender, non-distended, normal bowel sounds, no palpable masses Extremities: no cyanosis, no clubbing, no edema Skin: normal turgor Neurological: cranial nerve grossly intact, no new deficit Musculoskeletal: normal tone, generalized weakness Psychiatric: normal affect, A&O x 3 Hosp A/P (1) NSTEMI (non-ST elevated myocardial infarction) Code(s): I21.4 - NON-ST ELEVATION (NSTEMI) MYOCARDIAL INFARCTION Status: Acute Plan: s/p CABG x 3v POD #4 (2) CAD (coronary artery disease) Code(s): I25.10 - ATHSCL HEART DISEASE OF [place] CORONARY ARTERY W/O ANG PCTRS Status: Chronic Plan: Continue ASA/Lipitor/Lisinopril (3) S/P CABG x 3 Code(s): Z95.1 - PRESENCE OF AORTOCORONARY BYPASS GRAFT Status: Acute Plan: POD #4, continue routine post-CABG protocol (4) Head and neck cancer Code(s): C76.0 - MALIGNANT NEOPLASM OF HEAD, FACE AND NECK Status: Chronic (5) Alcohol abuse Code(s): F10.10 - ALCOHOL ABUSE, UNCOMPLICATED Status: Chronic (6) COPD (chronic obstructive pulmonary disease) Status: Chronic Plan: Continue Prednisone/Duonebs/Dulera/Augmentin (7) Hypertension Code(s): I10 - ESSENTIAL (PRIMARY) HYPERTENSION Status: Chronic Qualifiers: Hypertension type: essential hypertension Qualified Code(s): I10 - Essential (primary) hypertension - Plan continue antibiotics, PT/OT, social services director, respiratory therapy, incentive spirometry, out of bed/ambulate, DVT proph w/SCDs Stable overall Continue routine post-CABG protocol Start Heart Healthy diet OOB with PT Continue ASA/Lipitor/Lisinopril Pulmonary support with Prednisone/Duonebs/Augmentin/Dulera AM lab: BMP, CBC
--- NOTE | 2020-06-03 17:22 | PDOC.CPN ---
- Subjective Date: 06/03/20 Time: 12:30 Interval history: Having some serous discharge from chest tubes sites. Working with PT and having a hard time with it. - Review of Systems General: reports: fatigue. denies: fever/chills, weight/appetite/sleep changes, night sweats Respiratory: denies: cough, congestion, shortness of breath, exercise intolerance Cardiovascular: denies: chest pain, palpitation, edema, paroxysmal nocturnal dyspnea, orthopnea Gastrointestinal: denies: nausea, vomiting, diarrhea, constipation, abd pain, GI bleeding Musculoskeletal: denies: pain, tenderness, stiffness, swelling, arthritis/arthralgias Neurological: denies: numbness, syncope, seizure, weakness - Objective Allergies/Adverse Reactions: Allergies Allergy/AdvReac Type Severity Reaction Status Date / Time cetuximab [From Erbitux] Allergy Anaphylaxis Verified 09/09/19 23:11 Visit Medications: Current Medications Acetaminophen (Acetaminophen 325 Mg Tab) 650 mg PO Q6H PRN PRN Reason: Headache/Fever Or Mild Pain Hydrocodone Bitart/Acetaminophen (Hydrocodone/Acetaminophen 5/325 Mg Tablet) 1 tab PO Q4H PRN PRN Reason: Mild Pain (1-3) Last Admin: 06/02/20 13:30 Dose: 1 tab Documented by: Hydrocodone Bitart/Acetaminophen (Hydrocodone/Acetaminophen 5/325 Mg Tablet) 2 tab PO Q4H PRN PRN Reason: Moderate Pain (4-6) Last Admin: 06/03/20 00:13 Dose: 2 tab Documented by: Al Hydroxide/Mg Hydroxide (Mag-Al 1200 Mg/1200 Mg/30 Ml Udcup) 30 ml PO Q4H PRN PRN Reason: Indigestion Albuterol Sulfate (Albuterol 200 Puff (6.7gm Inhaler)) 2 puff INH [id number] PRN PRN Reason: Wheezing Albuterol/Ipratropium (Ipratropium/Albuterol Sulfate 3 Ml Neb) 3 ml NEB [id number] [facility] Last Admin: 06/03/20 14:01 Dose: 3 ml Documented by: Amoxicillin/Clavulanate Potassium (Amoxicillin/Potassium Clav 500 Mg Tab) 500 mg PO Q12HR [facility] Last Admin: 06/03/20 08:38 Dose: 500 mg Documented by: Artificial Tears (Artificial Tear Jamila 15 Ml Bot) 0 drop EA EYE PRN PRN PRN Reason: DRY EYES Last Admin: 06/01/20 10:56 Dose: 1 drp Documented by: Aspirin (Aspirin 325 Mg Enteric Coated Tablet) 325 mg PO DAILY [facility] Last Admin: 06/03/20 08:38 Dose: 325 mg Documented by: Atorvastatin Calcium (Atorvastatin Calcium 40 Mg Tab) 40 mg PO HS [facility] Last Admin: 06/02/20 21:09 Dose: 40 mg Documented by: Bisacodyl (Bisacodyl 5 Mg Tab) 10 mg PO Q12H PRN PRN Reason: Constipation Bisacodyl (Bisacodyl 10 Mg Supp) 10 mg GA Q12H PRN PRN Reason: Constipation Diphenhydramine HCl (Diphenhydramine 25 Mg Cap) 25 mg PO Q6H PRN PRN Reason: Itching & Insomnia or Boris Abrahan Docusate Sodium (Docusate 100 Mg Cap) 100 mg PO BID [facility] Last Admin: 06/03/20 08:38 Dose: 100 mg Documented by: Enoxaparin Sodium (Enoxaparin Sodium 40 Mg/0.4 Ml Syringe) 40 mg SC 2100 [facility] Last Admin: 06/02/20 21:10 Dose: 40 mg Documented by: Famotidine (Famotidine 20 Mg Tab) 20 mg PO BID [facility] Last Admin: 06/03/20 08:38 Dose: 20 mg Documented by: Folic Acid (Folic Acid 1 Mg Tab) 1 mg PO DAILY [facility] Last Admin: 06/03/20 08:38 Dose: 1 mg Documented by: Furosemide (Furosemide 40 Mg Tab) 40 mg PO 0900,1400 [facility] Stop: 06/04/20 14:01 Last Admin: 06/03/20 14:59 Dose: 40 mg Documented by: Guaifenesin/Dextromethorphan (Guaifenesin Dm 100-10/5 Ml Udcup) 15 ml PO Q4H PRN PRN Reason: Cough Hydralazine HCl (Hydralazine 20 Mg/Ml Vial) 10 mg SLOW IVP Q6H PRN PRN Reason: To Maintain SBP< 140mmHG Iron/Minerals/Multivitamins (Multivitamin W/ Minerals 1 Tab) 1 tab PO DAILY [facility] Last Admin: 06/03/20 08:39 Dose: 1 tab Documented by: Lisinopril (Lisinopril 2.5 Mg Tab) 2.5 mg PO DAILY [facility] Last Admin: 06/03/20 08:51 Dose: 2.5 mg Documented by: Magnesium Hydroxide (Milk Of Magnesia 30 Ml Udcup) 30 ml PO Q12H PRN PRN Reason: Constipation Magnesium Oxide (Magnesium Oxide 400 Mg Tab) 400 mg PO DAILY [facility] Last Admin: 06/03/20 08:38 Dose: 400 mg Documented by: Mineral Oil (Mineral Oil Enema) 133 ml GA DAILYPRN PRN PRN Reason: Constipation Mometasone Furoate/Formoterol Fumar (Mometasone 200 Mcg/Formoterol 5 Mcg 120 Puff Inhaler) 2 puff INH BID-RT [facility] Last Admin: 06/03/20 08:02 Dose: 2 puff Documented by: Nitroglycerin (Nitroglycerin 0.4 Mg Tab (25 Tab Bottle)) 0.4 mg SL Q5MIN PRN PRN Reason: Chest Pain Ondansetron HCl (Ondansetron Pf 4 Mg/2 Ml Vial) 4 mg IVP Q6H PRN PRN Reason: Nausea/Vomiting Last Admin: 06/01/20 05:31 Dose: 4 mg Documented by: Prednisone (Prednisone 20 Mg Tab) 20 mg PO QAM-WM [facility] Sodium Chloride (Flush - Normal Saline 10 Ml Syringe) 10 ml IVF Q12HR [facility] Last Admin: 06/03/20 08:39 Dose: 10 ml Documented by: Thiamine HCl (Thiamine 100 Mg Tab) 100 mg PO DAILY [facility] Last Admin: 06/03/20 08:39 Dose: 100 mg Documented by: Zolpidem Tartrate (Zolpidem Tartrate 5 Mg Tab) 5 mg PO HSPRN PRN PRN Reason: Insomnia Vital Signs & Weight: Vital Signs Temp Pulse Pulse Pulse Pulse Resp BP 06/03/20 16:24 98.4 F 97 12 06/03/20 14:29 100 107 H 06/03/20 14:01 89 118 H 06/03/20 11:08 98.2 F 100 20 06/03/20 09:25 108 H 117 H 102 H 124/75 06/03/20 08:03 101 H 18 06/03/20 08:01 97.6 F 103 H 20 BP BP BP Pulse Ox 06/03/20 16:24 99/60 92 L 06/03/20 14:29 102/59 L 102/56 L 06/03/20 14:01 94 L 06/03/20 11:08 113/67 06/03/20 09:25 125/61 06/03/20 08:03 92 L 06/03/20 08:01 111/59 L 92 L Admit Weight 178 lb 12.7 oz Weight 181 lb - Physical Exam General: alert & oriented x3 HEENT: mucus membranes moist Neck: supple neck Cardiac: regular rate and rhythm Lungs: clear to auscultation Neuro: grossly intact Abdomen: active bowel sounds Extremities: no edema Skin: clear Musculoskeletal: no pain - Labs Result Diagrams: 06/02/20 03:20 06/02/20 03:20 Troponin/CKMB CK-MB (CK-2) 56.2 ng/mL (0-6.6) H* 05/29/20 22:25 Troponin I 13.301 ng/mL (< 0.028) H* 05/29/20 22:25 - Telemetry Sinus rhythms and dysrhythmias: sinus rhythm - Assessment/Plan Assessment/Plan: 1. NSTEMI 2. Severe LM disease. 3. COPD 4. Alcohol use. 5. Deconditioning. PLAN: - ASA and statin for life - On low dose ACEI. - Will start low dose BB. - Increase PT as tolerated. - May need Rehab.
[2020-06-03] MEDS: Enoxaparin Sodium 40 MG/0.4 ML SYRINGE SC SCH (22:54)
[2020-06-03] MEDS: Atorvastatin Calcium 40 MG TAB PO SCH (22:54)
[2020-06-04 04:53] LABS: #Basophils 0.1 thou/uL (0.0-0.2); #Eosinphils 0.1 thou/uL (0.0-0.7); #Lymphocytes 1.6 thou/uL (1.20-3.40); #Monocytes 1.1 thou/uL (0.11-0.59); #Neutrophils 9.1 thou/uL (1.40-6.50); %Basophils 0.6 % (0.0-1.0); %Lymphocytes 13.5 % (21.0-51.0); %Monocytes 8.9 % (0.0-10.0); Hemoglobin 9.4 g/dL (14.0-18.0); Mean Corpuscular Hemoglobin 30.6 pg (27.0-31.0); Mean Corpuscular Volume 98.8 fL (78.0-98.0); Mean Platelet Volume 8.5 fL (7.4-10.4); Platelet Count 219 thou/uL (130-400); RBC Distribution Width 11.4 % (11.5-14.5); Red Blood Cell (RBC) Count 3.08 mill/uL (4.70-6.10); White Blood Cell (WBC) Count 11.9 thou/uL (4.8-10.8)
[2020-06-04 05:27] LABS: Anion Gap 12 mmol/L (10-20); BUN (Urea Nitrogen) 21 mg/dL (8.4-25.7); Calc. Creatinine Clearance 134 mL/min (70-130); Carbon Dioxide 32 mmol/L (23-31); Chloride 92 mmol/L (98-107); Glucose 92 mg/dL (80-115); Potassium 4.2 mmol/L (3.5-5.1); Sodium 132 mmol/L (136-145)
[2020-06-04] MEDS: Mometasone 200 MCG/Formoterol 5 MCG 120 PUFF INHALER INH SCH ×2 (07:13→18:19)
--- NOTE | 2020-06-04 08:08 | RAD ---
CHEST 1 VIEW: Date: 06/04/2020 COMPARISON: 06/02/2020 and 06/01/2020. HISTORY: Status post open heart surgery. FINDINGS: There are sternotomy wires. There is cardiomegaly. Pulmonary vessels are within normal limits. There are bilateral pleural effusions with adjacent parenchymal changes. Lungs are hyperinflated. No pneumo thorax. IMPRESSION: 1. Cardiomegaly. 2. Worsening bilateral pleural effusions and worsening bibasilar parenchymal changes. POS: PPP
[2020-06-04] MEDS: Furosemide 40 MG TAB PO SCH ×2 (09:08→13:00)
[2020-06-04] MEDS: Lisinopril 2.5 MG TAB PO SCH (09:08)
[2020-06-04] MEDS ORDERED: Sodium Chloride 0.9% 500 ML IV SCH (09:15)
--- NOTE | 2020-06-04 09:19 | PDOC.HOSPP ---
- Subjective Encounter Date: 06/04/20 Encounter Time: 09:00 Subjective: f/u CAD, s/p CABG x 3v POD #5. Feels weak, lightheaded and some SOB. Nursing reports BP low this am prior to any BP meds being given. - Objective Vital Signs & Weight: Vital Signs (12 hours) Temp Pulse Resp BP Pulse Ox 06/04/20 09:08 103 H 06/04/20 07:41 97.8 F 103 H 24 H 93/60 92 L 06/04/20 07:40 92 L 06/04/20 07:15 99 06/04/20 07:14 100 16 99 06/04/20 04:00 98.3 F 105 H 22 H 90/53 L 06/04/20 00:25 91 16 95 Weight Admit Weight 178 lb 12.7 oz Weight 181 lb Most Recent Monitor Data Heart Rate from ECG 107 NIBP 117/91 NIBP BP-Mean 99 Respiration from ECG 19 SpO2 82 I&O: 06/03/20 06/04/20 06/05/20 06:59 06:59 06:59 Intake Total 1060 300 Output Total 1585 750 475 Balance -525 -450 -475 Result Diagrams: 06/04/20 04:28 06/04/20 04:28 Additional Labs: Accuchecks 06/01/20 05/31/20 05/31/20 10:07 21:13 17:16 POC Glucose 118 H 131 H 138 H Radiology Reviewed by me: Yes (PCXR - bibasilar effusions, chronic changes, post-surgical changes) EKG Reviewed by me: Yes (Tele - SR) Hospitalist ROS - Medication Medications: Active Medications Generic Name Dose Route Start Last Admin Trade Name Freq PRN Reason Stop Dose Admin Hydrocodone Bitart/Acetaminophen 1 tab 06/01/20 13:40 06/02/20 13:30 Hydrocodone/Acetaminophen 5/325 Mg Tablet PO 1 tab Q4H PRN Administration Mild Pain (1-3) Hydrocodone Bitart/Acetaminophen 2 tab 06/01/20 13:41 06/03/20 00:13 Hydrocodone/Acetaminophen 5/325 Mg Tablet PO 2 tab Q4H PRN Administration Moderate Pain (4-6) Albuterol/Ipratropium 3 ml 05/30/20 19:00 06/04/20 07:14 Ipratropium/Albuterol Sulfate 3 Ml Neb NEB 3 ml [id number] CHETAN Administration Amoxicillin/Clavulanate Potassium 500 mg 05/31/20 09:00 06/03/20 22:54 Amoxicillin/Potassium Clav 500 Mg Tab PO 500 mg Q12HR CHETAN Administration Artificial Tears 0 drop 06/01/20 10:36 06/01/20 10:56 Artificial Tear Jamila 15 Ml Bot EA EYE 1 drp PRN PRN Administration DRY EYES Aspirin 325 mg 06/03/20 09:00 06/03/20 08:38 Aspirin 325 Mg Enteric Coated Tablet PO 325 mg DAILY [facility] Administration Atorvastatin Calcium 40 mg 06/01/20 21:00 06/03/20 22:54 Atorvastatin Calcium 40 Mg Tab PO 40 mg HS [facility] Administration Docusate Sodium 100 mg 05/30/20 21:00 06/03/20 22:54 Docusate 100 Mg Cap PO 100 mg BID [facility] Administration Enoxaparin Sodium 40 mg 05/30/20 21:00 06/03/20 22:54 Enoxaparin Sodium 40 Mg/0.4 Ml Syringe SC 40 mg 2100 [facility] Administration Famotidine 20 mg 06/02/20 21:00 06/03/20 22:54 Famotidine 20 Mg Tab PO 20 mg BID [facility] Administration Folic Acid 1 mg 05/30/20 09:00 06/03/20 08:38 Folic Acid 1 Mg Tab PO 1 mg DAILY [facility] Administration Furosemide 40 mg 06/03/20 09:00 06/04/20 09:08 Furosemide 40 Mg Tab PO 06/04/20 14:01 Not Given 0900,1400 [facility] Iron/Minerals/Multivitamins 1 tab 05/30/20 09:00 06/03/20 08:39 Multivitamin W/ Minerals 1 Tab PO 1 tab DAILY [facility] Administration Lisinopril 2.5 mg 06/03/20 09:00 06/04/20 09:08 Lisinopril 2.5 Mg Tab PO Not Given DAILY [facility] Magnesium Oxide 400 mg 05/30/20 09:00 06/03/20 08:38 Magnesium Oxide 400 Mg Tab PO 400 mg DAILY [facility] Administration Metoprolol Succinate 12.5 mg 06/04/20 09:00 06/04/20 09:09 Metoprolol Succinate Xl 25 Mg Tab PO Not Given DAILY [facility] Mometasone Furoate/Formoterol Fumar 2 puff 05/31/20 18:30 06/04/20 07:13 Mometasone 200 Mcg/Formoterol 5 Mcg 120 Puff Inhaler INH 2 puff BID-RT CHETAN Administration Ondansetron HCl 4 mg 05/30/20 17:49 06/01/20 05:31 Ondansetron Pf 4 Mg/2 Ml Vial IVP 4 mg Q6H PRN Administration Nausea/Vomiting Sodium Chloride 10 ml 05/30/20 21:00 06/03/20 22:55 Flush - Normal Saline 10 Ml Syringe IVF 10 ml Q12HR CHETAN Administration Thiamine HCl 100 mg 05/30/20 09:00 06/03/20 08:39 Thiamine 100 Mg Tab PO 100 mg DAILY CHETAN Administration Hospitalist Exam Vitals: Vital Signs (12 hours) Temp Pulse Resp BP Pulse Ox 06/04/20 09:08 103 H 06/04/20 07:41 97.8 F 103 H 24 H 93/60 92 L 06/04/20 07:40 92 L 06/04/20 07:15 99 06/04/20 07:14 100 16 99 06/04/20 04:00 98.3 F 105 H 22 H 90/53 L 06/04/20 00:25 91 16 95 Weight Admit Weight 178 lb 12.7 oz Weight 181 lb Most Recent Monitor Data Heart Rate from ECG 107 NIBP 117/91 NIBP BP-Mean 99 Respiration from ECG 19 SpO2 82 General - other findings: pale, responsive in mod distress Eye: PERRL, anicteric sclera ENT: normocephalic atraumatic, no oropharyngeal lesions Neck: supple, symmetric, no JVD, no thyromegaly, no lymphadenopathy Heart: RRR, no gallops, no rubs, normal peripheral pulses Heart - other findings: S1, S2 Respiratory: no wheezes Respiratory - other findings: diminished in bibasilar segments Gastrointestinal: soft, non-tender, non-distended, normal bowel sounds, no palpable masses Extremities: no cyanosis, no clubbing, no edema Skin: normal turgor Skin - other findings: chest incision CDI Neurological: cranial nerve grossly intact, no new deficit Musculoskeletal: normal tone, generalized weakness Psychiatric: A&O x 3, somnolent Hosp A/P (1) Hypotension Status: Acute Plan: Suspect iatrogenic in conjunction with ICM, hold all BP meds, IV NS bolus as pt is symptomatic, serial BP monitoring (2) NSTEMI (non-ST elevated myocardial infarction) Code(s): I21.4 - NON-ST ELEVATION (NSTEMI) MYOCARDIAL INFARCTION Status: Acute (3) CAD (coronary artery disease) Code(s): I25.10 - ATHSCL HEART DISEASE OF [place] CORONARY ARTERY W/O ANG PCTRS Status: Chronic Plan: s/p CABG x 3v POD #5 (4) Ischemic cardiomyopathy Code(s): I25.5 - ISCHEMIC CARDIOMYOPATHY Status: Chronic Plan: EF 30-35%, continue med mgmt after revascularization, ? need for inotropic support if clinical decompensation (5) S/P CABG x 3 Code(s): Z95.1 - PRESENCE OF AORTOCORONARY BYPASS GRAFT Status: Acute (6) Head and neck cancer Code(s): C76.0 - MALIGNANT NEOPLASM OF HEAD, FACE AND NECK Status: Chronic (7) Alcohol abuse Code(s): F10.10 - ALCOHOL ABUSE, UNCOMPLICATED Status: Chronic (8) COPD (chronic obstructive pulmonary disease) Status: Chronic (9) Hypertension Code(s): I10 - ESSENTIAL (PRIMARY) HYPERTENSION Status: Chronic Qualifiers: Hypertension type: essential hypertension Qualified Code(s): I10 - Essential (primary) hypertension - Plan PT/OT, respiratory therapy Stable overall Continue routine post-CABG protocol Hold all BP meds IV NS bolus 500ml x 1 OOB with PT Continue ASA/Lipitor Pulmonary support with Prednisone/Duonebs/Augmentin/Dulera CM for Swing/Rehab options
[2020-06-04] MEDS: predniSONE 20 MG TAB PO SCH (10:21)
[2020-06-04] MEDS: Aspirin 325 mg Enteric Coated Tablet PO SCH (10:22)
[2020-06-04] MEDS: Docusate 100 MG CAP PO SCH ×2 (10:22→20:43)
[2020-06-04] MEDS: Magnesium Oxide 400 MG TAB PO SCH (10:22)
[2020-06-04] MEDS: Folic Acid 1 MG TAB PO SCH (10:22)
[2020-06-04] MEDS: Famotidine 20 MG TAB PO SCH ×2 (10:22→20:43)
[2020-06-04] MEDS: Thiamine 100 MG TAB PO SCH (10:22)
[2020-06-04] MEDS: Amoxicillin/Potassium Clav 500 MG TAB PO SCH ×2 (10:22→20:43)
[2020-06-04] MEDS: Multivitamin W/ Minerals 1 TAB PO SCH (10:22)
--- NOTE | 2020-06-04 10:42 | PRG ---
DATE OF SERVICE: 06/04/2020 SUBJECTIVE: Ruel Shelton this morning is awake, responsive. He had chest pain. OBJECTIVE: VITAL SIGNS: Temperature 97, pulse 103, respiratory rate 24, sats are 90% on room air, blood pressure 93/60. CHEST: No wheezing. No crackles. CARDIAC: Normal S1, S2. ABDOMEN: No masses. IMAGING: X-ray shows improvement pleural effusion. ASSESSMENT: 1. Respiratory failure. 2. Ongoing tobacco abuse. 3. Chronic obstructive pulmonary disease. PLAN: P.o. antibiotics. DVT prophylaxis. Supportive care. Home when okay with Cardiology and Surgery. Job ID: [id number]
--- NOTE | 2020-06-04 18:22 | PDOC.CPN ---
- Subjective Date: 06/04/20 Time: 18:21 Interval history: No new issues. Working with PT with difficulty. - Review of Systems General: denies: fever/chills, weight/appetite/sleep changes, night sweats, fatigue Respiratory: denies: cough, congestion, shortness of breath, exercise intolerance Cardiovascular: denies: chest pain, palpitation, edema, paroxysmal nocturnal dyspnea, orthopnea Gastrointestinal: denies: nausea, vomiting, diarrhea, constipation, abd pain, GI bleeding Musculoskeletal: denies: pain, tenderness, stiffness, swelling, arthritis/arth ralgias Neurological: denies: numbness, syncope, seizure, weakness - Objective Allergies/Adverse Reactions: Allergies Allergy/AdvReac Type Severity Reaction Status Date / Time cetuximab [From Erbitux] Allergy Anaphylaxis Verified 09/09/19 23:11 Visit Medications: Current Medications Acetaminophen (Acetaminophen 325 Mg Tab) 650 mg PO Q6H PRN PRN Reason: Headache/Fever Or Mild Pain Last Admin: 06/04/20 10:23 Dose: 650 mg Documented by: Hydrocodone Bitart/Acetaminophen (Hydrocodone/Acetaminophen 5/325 Mg Tablet) 1 tab PO Q4H PRN PRN Reason: Mild Pain (1-3) Last Admin: 06/02/20 13:30 Dose: 1 tab Documented by: Hydrocodone Bitart/Acetaminophen (Hydrocodone/Acetaminophen 5/325 Mg Tablet) 2 tab PO Q4H PRN PRN Reason: Moderate Pain (4-6) Last Admin: 06/03/20 00:13 Dose: 2 tab Documented by: Al Hydroxide/Mg Hydroxide (Mag-Al 1200 Mg/1200 Mg/30 Ml Udcup) 30 ml PO Q4H PRN PRN Reason: Indigestion Albuterol Sulfate (Albuterol 200 Puff (6.7gm Inhaler)) 2 puff INH [id number] P RN PRN Reason: Wheezing Albuterol/Ipratropium (Ipratropium/Albuterol Sulfate 3 Ml Neb) 3 ml NEB [id number] CHETAN Last Admin: 06/04/20 18:09 Dose: 3 ml Documented by: Amoxicillin/Clavulanate Potassium (Amoxicillin/Potassium Clav 500 Mg Tab) 500 mg PO Q12HR CHETAN Last Admin: 06/04/20 10:22 Dose: 500 mg Documented by: Artificial Tears (Artificial Tear Jamila 15 Ml Bot) 0 drop EA EYE PRN PRN PRN Reason: DRY EYES Last Admin: 06/01/20 10:56 Dose: 1 drp Documented by: Aspirin (Aspirin 325 Mg Enteric Coated Tablet) 325 mg PO DAILY [facility] Last Admin: 06/04/20 10:22 Dose: 325 mg Documented by: Atorvastatin Calcium (Atorvastatin Calcium 40 Mg Tab) 40 mg PO HS [facility] Last Admin: 06/03/20 22:54 Dose: 40 mg Documented by: Bisacodyl (Bisacodyl 5 Mg Tab) 10 mg PO Q12H PRN PRN Reason: Constipation Bisacodyl (Bisacodyl 10 Mg Supp) 10 mg [place] Q12H PRN PRN Reason: Constipation Diphenhydramine HCl (Diphenhydramine 25 Mg Cap) 25 mg PO Q6H PRN PRN Reason: Itching & Insomnia or Boris Abrahan Docusate Sodium (Docusate 100 Mg Cap) 100 mg PO BID [facility] Last Admin: 06/04/20 10:22 Dose: 100 mg Documented by: Enoxaparin Sodium (Enoxaparin Sodium 40 Mg/0.4 Ml Syringe) 40 mg SC 2100 [facility] Last Admin: 06/03/20 22:54 Dose: 40 mg Documented by: Famotidine (Famotidine 20 Mg Tab) 20 mg PO BID [facility] Last Admin: 06/04/20 10:22 Dose: 20 mg Documented by: Folic Acid (Folic Acid 1 Mg Tab) 1 mg PO DAILY [facility] Last Admin: 06/04/20 10:22 Dose: 1 mg Documented by: Guaifenesin/Dextromethorphan (Guaifenesin Dm 100-10/5 Ml Udcup) 15 ml PO Q4H PRN PRN Reason: Cough Hydralazine HCl (Hydralazine 20 Mg/Ml Vial) 10 mg SLOW IVP Q6H PRN PRN Reason: To Maintain SBP< 140mmHG Iron/Minerals/Multivitamins (Multivitamin W/ Minerals 1 Tab) 1 tab PO DAILY [facility] Last Admin: 06/04/20 10:22 Dose: 1 tab Documented by: Lisinopril (Lisinopril 2.5 Mg Tab) 2.5 mg PO DAILY [facility] Last Admin: 06/04/20 09:08 Dose: Not Given Documented by: Magnesium Hydroxide (Milk Of Magnesia 30 Ml Udcup) 30 ml PO Q12H PRN PRN Reason: Constipation Magnesium Oxide (Magnesium Oxide 400 Mg Tab) 400 mg PO DAILY [facility] Last Admin: 06/04/20 10:22 Dose: 400 mg Documented by: Metoprolol Succinate (Metoprolol Succinate Xl 25 Mg Tab) 12.5 mg PO DAILY [facility] Last Admin: 06/04/20 09:09 Dose: Not Given Documented by: Mineral Oil (Mineral Oil Enema) 133 ml [place] DAILYPRN PRN PRN Reason: Constipation Mometasone Furoate/Formoterol Fumar (Mometasone 200 Mcg/Formoterol 5 Mcg 120 Puff Inhaler) 2 puff INH BID-RT [facility] Last Admin: 06/04/20 18:19 Dose: 2 puff Documented by: Nitroglycerin (Nitroglycerin 0.4 Mg Tab (25 Tab Bottle)) 0.4 mg SL Q5MIN PRN PRN Reason: Chest Pain Ondansetron HCl (Ondansetron Pf 4 Mg/2 Ml Vial) 4 mg IVP Q6H PRN PRN Reason: Nausea/Vomiting Last Admin: 06/01/20 05:31 Dose: 4 mg Documented by: Prednisone (Prednisone 20 Mg Tab) 20 mg PO QAM-WM [facility] Last Admin: 06/04/20 10:21 Dose: 20 mg Documented by: Sodium Chloride (Flush - Normal Saline 10 Ml Syringe) 10 ml IVF Q12HR [facility] Last Admin: 06/04/20 10:23 Dose: 10 ml Documented by: Thiamine HCl (Thiamine 100 Mg Tab) 100 mg PO DAILY [facility] Last Admin: 06/04/20 10:22 Dose: 100 mg Documented by: Zolpidem Tartrate (Zolpidem Tartrate 5 Mg Tab) 5 mg PO HSPRN PRN PRN Reason: Insomnia Vital Signs & Weight: Vital Signs Temp Pulse Pulse Pulse Pulse Resp BP 06/04/20 18:09 99 20 06/04/20 16:03 99.2 F 102 H 18 06/04/20 14:48 112 H 104 H 105/60 06/04/20 13:15 91 16 06/04/20 12:04 98.5 F 102 H 18 06/04/20 09:45 100 102 H 06/04/20 09:08 103 H 06/04/20 07:41 97.8 F 103 H 24 H 06/04/20 07:40 02/23/21 07:15 06/04/20 07:14 100 16 BP BP BP Pulse Ox 06/04/20 18:09 92 L 06/04/20 16:03 100/57 L 92 L 06/04/20 14:48 108/60 98/54 L 06/04/20 13:15 96 06/04/20 12:04 94/55 L 97 06/04/20 09:45 90/52 L 85/52 L 06/04/20 09:08 06/04/20 07:41 93/60 92 L 06/04/20 07:40 92 L 06/04/20 07:15 99 06/04/20 07:14 99 Admit Weight 178 lb 12.7 oz Weight 181 lb - Physical Exam General: alert & oriented x3 HEENT: mucus membranes moist Neck: supple neck Cardiac: regular rate and rhythm Lungs: normal breath sounds Neuro: grossly intact Abdomen: active bowel sounds Extremities: no edema Skin: clear Musculoskeletal: no pain - Labs Result Diagrams: 06/04/20 04:28 06/04/20 04:28 Troponin/CKMB CK-MB (CK-2) 56.2 ng/mL (0-6.6) H* 05/29/20 22:25 Troponin I 13.301 ng/mL (< 0.028) H* 05/29/20 22:25 - Telemetry Sinus rhythms and dysrhythmias: sinus rhythm - Assessment/Plan Assessment/Plan: 1. NSTEMI 2. Severe LM disease. 3. COPD 4. Alcohol use. 5. Deconditioning. PLAN: - ASA and statin for life - On low dose ACEI and BB. - Increase PT as tolerated. - May need Rehab.
[2020-06-04] MEDS: Atorvastatin Calcium 40 MG TAB PO SCH (20:43)
[2020-06-04] MEDS: Enoxaparin Sodium 40 MG/0.4 ML SYRINGE SC SCH (20:44)
[2020-06-05] MEDS: Mometasone 200 MCG/Formoterol 5 MCG 120 PUFF INHALER INH SCH ×2 (07:34→19:17)
[2020-06-05] MEDS: predniSONE 20 MG TAB PO SCH ×2 (08:41→09:06)
--- NOTE | 2020-06-05 08:42 | PRG ---
DATE OF SERVICE: 06/05/2020 SUBJECTIVE: This morning, he is awake, alert, responsive. He is better. OBJECTIVE: VITAL SIGNS: Temperature 97, pulse on room air, respiratory rate , and blood pressure 97/55. CHEST: No wheezing. No crackles. CARDIAC: Normal S1 and S2. No gallops. ABDOMEN: No masses. ASSESSMENT: 1. Chronic obstructive pulmonary disease. 2. Coronary artery bypass grafting. 3. Congestive heart failure. PLAN: The patient is much improved. Taper and discontinue steroids. Asked him to refrain from smoking. Disposition, home any time as per Cardiology. Job ID: [id number]
[2020-06-05] MEDS: Aspirin 325 mg Enteric Coated Tablet PO SCH (09:06)
[2020-06-05] MEDS: Docusate 100 MG CAP PO SCH ×2 (09:06→20:23)
[2020-06-05] MEDS: Multivitamin W/ Minerals 1 TAB PO SCH (09:07)
[2020-06-05] MEDS: Famotidine 20 MG TAB PO SCH ×2 (09:07→20:23)
[2020-06-05] MEDS: Thiamine 100 MG TAB PO SCH (09:07)
[2020-06-05] MEDS: Magnesium Oxide 400 MG TAB PO SCH (09:07)
[2020-06-05] MEDS: Folic Acid 1 MG TAB PO SCH (09:07)
[2020-06-05] MEDS: Lisinopril 2.5 MG TAB PO SCH (09:07)
[2020-06-05] MEDS: Amoxicillin/Potassium Clav 500 MG TAB PO SCH ×2 (10:35→20:23)
--- NOTE | 2020-06-05 16:00 | PDOC.BPN ---
- Brief Progress Note [id number] Progress note dictated
--- NOTE | 2020-06-05 17:14 | PDOC.CPN ---
- Subjective Date: 06/05/20 Time: 17:13 Interval history: No new issues. Working with PT. - Review of Systems General: denies: fever/chills, weight/appetite/sleep changes, night sweats, fatigue Respiratory: denies: cough, congestion, shortness of breath, exercise intolerance Cardiovascular: denies: chest pain, palpitation, edema, paroxysmal nocturnal dyspnea, orthopnea Gastrointestinal: denies: nausea, vomiting, diarrhea, constipation, abd pain, GI bleeding Musculoskeletal: reports: arthritis/arthralgias. denies: pain, tenderness, stiffness, swelling Neurological: denies: numbness, syncope, seizure, weakness - Objective Allergies/Adverse Reactions: Allergies Allergy/AdvReac Type Severity Reaction Status Date / Time cetuximab [From Erbitux] Allergy Anaphylaxis Verified 09/09/19 23:11 Visit Medications: Current Medications Acetaminophen (Acetaminophen 325 Mg Tab) 650 mg PO Q6H PRN PRN Reason: Headache/Fever Or Mild Pain Last Admin: 06/04/20 10:23 Dose: 650 mg Documented by: Hydrocodone Bitart/Acetaminophen (Hydrocodone/Acetaminophen 5/325 Mg Tablet) 1 tab PO Q4H PRN PRN Reason: Mild Pain (1-3) Last Admin: 06/02/20 13:30 Dose: 1 tab Documented by: Hydrocodone Bitart/Acetaminophen (Hydrocodone/Acetaminophen 5/325 Mg Tablet) 2 tab PO Q4H PRN PRN Reason: Moderate Pain (4-6) Last Admin: 06/03/20 00:13 Dose: 2 tab Documented by: Al Hydroxide/Mg Hydroxide (Mag-Al 1200 Mg/1200 Mg/30 Ml Udcup) 30 ml PO Q4H PRN PRN Reason: Indigestion Albuterol Sulfate (Albuterol 200 Puff (6.7gm Inhaler)) 2 puff INH [id number] PRN PRN Reason: Wheezing Albuterol/Ipratropium (Ipratropium/Albuterol Sulfate 3 Ml Neb) 3 ml NEB [id number] CHETAN Last Admin: 06/05/20 13:43 Dose: 3 ml Documented by: Amoxicillin/Clavulanate Potassium (Amoxicillin/Potassium Clav 500 Mg Tab) 500 mg PO Q12HR CHETAN Last Admin: 06/05/20 10:35 Dose: 500 mg Documented by: Artificial Tears (Artificial Tear Jamila 15 Ml Bot) 0 drop EA EYE PRN PRN PRN Reason: DRY EYES Last Admin: 06/01/20 10:56 Dose: 1 drp Documented by: Aspirin (Aspirin 325 Mg Enteric Coated Tablet) 325 mg PO DAILY [facility] Last Admin: 06/05/20 09:06 Dose: 325 mg Documented by: Atorvastatin Calcium (Atorvastatin Calcium 40 Mg Tab) 40 mg PO HS [facility] Last Admin: 06/04/20 20:43 Dose: 40 mg Documented by: Bisacodyl (Bisacodyl 5 Mg Tab) 10 mg PO Q12H PRN PRN Reason: Constipation Bisacodyl (Bisacodyl 10 Mg Supp) 10 mg [place] Q12H PRN PRN Reason: Constipation Diphenhydramine HCl (Diphenhydramine 25 Mg Cap) 25 mg PO Q6H PRN PRN Reason: Itching & Insomnia or Boirs Abrahan Docusate Sodium (Docusate 100 Mg Cap) 100 mg PO BID [facility] Last Admin: 06/05/20 09:06 Dose: 100 mg Documented by: Enoxaparin Sodium (Enoxaparin Sodium 40 Mg/0.4 Ml Syringe) 40 mg SC 2100 [facility] Last Admin: 06/04/20 20:44 Dose: 40 mg Documented by: Famotidine (Famotidine 20 Mg Tab) 20 mg PO BID [facility] Last Admin: 06/05/20 09:07 Dose: 20 mg Documented by: Folic Acid (Folic Acid 1 Mg Tab) 1 mg PO DAILY [facility] Last Admin: 06/05/20 09:07 Dose: 1 mg Documented by: Guaifenesin/Dextromethorphan (Guaifenesin Dm 100-10/5 Ml Udcup) 15 ml PO Q4H PRN PRN Reason: Cough Hydralazine HCl (Hydralazine 20 Mg/Ml Vial) 10 mg SLOW IVP Q6H PRN PRN Reason: To Maintain SBP< 140mmHG Iron/Minerals/Multivitamins (Multivitamin W/ Minerals 1 Tab) 1 tab PO DAILY [facility] Last Admin: 06/05/20 09:07 Dose: 1 tab Documented by: Lisinopril (Lisinopril 2.5 Mg Tab) 2.5 mg PO DAILY [facility] Last Admin: 06/05/20 09:07 Dose: 2.5 mg Documented by: Magnesium Hydroxide (Milk Of Magnesia 30 Ml Udcup) 30 ml PO Q12H PRN PRN Reason: Constipation Magnesium Oxide (Magnesium Oxide 400 Mg Tab) 400 mg PO DAILY [facility] Last Admin: 06/05/20 09:07 Dose: 400 mg Documented by: Metoprolol Succinate (Metoprolol Succinate Xl 25 Mg Tab) 12.5 mg PO DAILY [facility] Last Admin: 06/05/20 09:07 Dose: 12.5 mg Documented by: Mineral Oil (Mineral Oil Enema) 133 ml [place] DAILYPRN PRN PRN Reason: Constipation Mometasone Furoate/Formoterol Fumar (Mometasone 200 Mcg/Formoterol 5 Mcg 120 Puff Inhaler) 2 puff INH BID-RT [facility] Last Admin: 06/05/20 07:34 Dose: 2 puff Documented by: Nitroglycerin (Nitroglycerin 0.4 Mg Tab (25 Tab Bottle)) 0.4 mg SL Q5MIN PRN PRN Reason: Chest Pain Ondansetron HCl (Ondansetron Pf 4 Mg/2 Ml Vial) 4 mg IVP Q6H PRN PRN Reason: Nausea/Vomiting Last Admin: 06/01/20 05:31 Dose: 4 mg Documented by: Prednisone (Prednisone 20 Mg Tab) 10 mg PO QAM[facility] Stop: 06/06/20 08:01 Last Admin: 06/05/20 09:06 Dose: 10 mg Documented by: Sodium Chloride (Flush - Normal Saline 10 Ml Syringe) 10 ml IVF Q12HR [facility] Last Admin: 06/05/20 09:07 Dose: 10 ml Documented by: Thiamine HCl (Thiamine 100 Mg Tab) 100 mg PO DAILY [facility] Last Admin: 06/05/20 09:07 Dose: 100 mg Documented by: Zolpidem Tartrate (Zolpidem Tartrate 5 Mg Tab) 5 mg PO HSPRN PRN PRN Reason: Insomnia Vital Signs & Weight: Vital Signs Temp Pulse Pulse Pulse Resp BP BP 06/05/20 16:10 98.4 F 99 18 06/05/20 11:35 98.6 F 93 16 06/05/20 09:35 103 H 96 117/65 109/62 06/05/20 09:07 96 06/05/20 07:30 06/05/20 07:28 97.9 F 96 20 BP BP Pulse Ox 06/05/20 16:10 88/55 L 92 L 06/05/20 11:35 90/44 L 93 L 06/05/20 09:35 06/05/20 09:07 06/05/20 07:30 97 06/05/20 07:28 97/55 L 97 Admit Weight 178 lb 12.7 oz Weight 180 lb 1.6 oz - Physical Exam General: alert & oriented x3 HEENT: mucus membranes moist Neck: supple neck Cardiac: regular rate and rhythm Lungs: normal breath sounds Neuro: grossly intact Abdomen: active bowel sounds Extremities: 1+ LE edema Skin: clear - Labs Result Diagrams: 06/04/20 04:28 06/04/20 04:28 Troponin/CKMB CK-MB (CK-2) 56.2 ng/mL (0-6.6) H* 05/29/20 22:25 Troponin I 13.301 ng/mL (< 0.028) H* 05/29/20 22:25 - Telemetry Sinus rhythms and dysrhythmias: sinus rhythm - Assessment/Plan Assessment/Plan: 1. NSTEMI 2. Severe LM disease. 3. COPD 4. Alcohol use. 5. Deconditioning. PLAN: - ASA and statin for life - On low dose ACEI and BB. - Increase PT as tolerated. - Will need Rehab.
--- NOTE | 2020-06-05 17:37 | PRG ---
DATE OF SERVICE: 06/05/2020 SUBJECTIVE: The patient is sitting outside the bed in a chair, does not appear to be in any distress. Overall, he is feeling better. OBJECTIVE: GENERAL: The patient is awake, alert, does not appear to be in acute distress. VITAL SIGNS: Temperature 98.6, pulse is 93, blood pressure 170/65, pulse is 103, oxygen saturation 93% on room air. HEAD AND NECK: Normocephalic. Neck is supple. CHEST: Few bibasilar crackles. HEART: Regular rate and rhythm. ABDOMEN: Soft and nontender. Bowel sounds present. NEUROLOGIC: Awake, alert, and oriented. PSYCHIATRIC: Normal mood. EXTREMITIES: No clubbing or cyanosis. LABORATORY DATA: No labs done today. ASSESSMENT: 1. Non-ST elevation myocardial infarction, status post coronary artery bypass graft surgery. 2. Hypotension, improved. 3. Head and neck cancer. 4. Alcohol abuse. 5. Status post coronary artery bypass graft surgery. PLAN: 1. Continue serial blood pressure monitoring. Continue with aspirin and statin. Continue prednisone, DuoNebs, Dulera, and Augmentin. 2. Case management for discharge planning/rehab?.. Job ID: [id number]
[2020-06-05] MEDS: Atorvastatin Calcium 40 MG TAB PO SCH (20:23)
[2020-06-05] MEDS: Enoxaparin Sodium 40 MG/0.4 ML SYRINGE SC SCH (20:23)
[2020-06-06 04:11] LABS: #Basophils 0.1 thou/uL (0.0-0.2); #Eosinphils 0.4 thou/uL (0.0-0.7); #Lymphocytes 1.8 thou/uL (1.20-3.40); #Neutrophils 11.5 thou/uL (1.40-6.50); %Basophils 0.4 % (0.0-1.0); %Eosinophils 2.7 % (0.0-10.0); %Lymphocytes 12.4 % (21.0-51.0); %Monocytes 6.8 % (0.0-10.0); %Neutrophils 77.7 % (42.0-75.0); Hemoglobin 8.7 g/dL (14.0-18.0); Mean Corpuscular HGB CONC 31.9 g/dL (32.0-36.0); Mean Corpuscular Hemoglobin 31.5 pg (27.0-31.0); Mean Corpuscular Volume 98.7 fL (78.0-98.0); Mean Platelet Volume 8.3 fL (7.4-10.4); Platelet Count 266 thou/uL (130-400); RBC Distribution Width 11.4 % (11.5-14.5); Red Blood Cell (RBC) Count 2.78 mill/uL (4.70-6.10); White Blood Cell (WBC) Count 14.7 thou/uL (4.8-10.8)
[2020-06-06 04:42] LABS: Anion Gap 8 mmol/L (10-20); BUN (Urea Nitrogen) 16 mg/dL (8.4-25.7); Calc. Creatinine Clearance 133 mL/min (70-130); Calcium 7.8 mg/dL (7.8-10.44); Carbon Dioxide 33 mmol/L (23-31); Chloride 91 mmol/L (98-107); Glucose 94 mg/dL (80-115); Potassium 4.3 mmol/L (3.5-5.1); Sodium 128 mmol/L (136-145)
[2020-06-06] MEDS: Mometasone 200 MCG/Formoterol 5 MCG 120 PUFF INHALER INH SCH ×2 (07:46→19:12)
[2020-06-06] MEDS: predniSONE 20 MG TAB PO SCH (10:03)
[2020-06-06] MEDS: Aspirin 325 mg Enteric Coated Tablet PO SCH (10:03)
[2020-06-06] MEDS: Docusate 100 MG CAP PO SCH ×2 (10:04→20:18)
[2020-06-06] MEDS: Lisinopril 2.5 MG TAB PO SCH (10:05)
[2020-06-06] MEDS: Folic Acid 1 MG TAB PO SCH (10:05)
[2020-06-06] MEDS: Famotidine 20 MG TAB PO SCH ×2 (10:05→20:18)
[2020-06-06] MEDS: Magnesium Oxide 400 MG TAB PO SCH (10:06)
[2020-06-06] MEDS: Multivitamin W/ Minerals 1 TAB PO SCH (10:06)
[2020-06-06] MEDS: Thiamine 100 MG TAB PO SCH (10:07)
--- NOTE | 2020-06-06 10:48 | PRG ---
DATE OF SERVICE: 06/06/2020 SUBJECTIVE: Ruel Shelton, this morning, is awake, alert, and responsive. OBJECTIVE: VITAL SIGNS: Temperature 97, pulse 91, respiratory rate 20, sats 100% on room air, blood pressure 97/64. CHEST: Decreased breath sounds. No wheezing. CARDIAC: Normal S1, S2. No gallops. ABDOMEN: No masses. LABORATORY DATA: Sodium is 128. Otherwise, white count 14,000. ASSESSMENT: Status post coronary artery bypass grafting, congestive heart failure, chronic obstructive pulmonary disease. Patient much improved. PLAN: Continue cardiac care. Discontinue steroids. He has inhalers at home. Disposition as per Cardiology. Job ID: [id number]
--- NOTE | 2020-06-06 11:56 | PDOC.CPN ---
- Subjective Date: 06/06/20 Time: 11:55 Interval history: He is walking with PT. - Review of Systems General: denies: fever/chills, weight/appetite/sleep changes, night sweats, fatigue Respiratory: denies: cough, congestion, shortness of breath, exercise intolerance Cardiovascular: denies: chest pain, palpitation, edema, paroxysmal nocturnal dyspnea, orthopnea Gastrointestinal: denies: nausea, vomiting, diarrhea, constipation, abd pain, GI bleeding Musculoskeletal: denies: pain, tenderness, stiffness, swelling, arthritis/arthralgias Neurological: denies: numbness, syncope, seizure, weakness - Objective Allergies/Adverse Reactions: Allergies Allergy/AdvReac Type Severity Reaction Status Date / Time cetuximab [From Erbitux] Allergy Anaphylaxis Verified 09/09/19 23:11 Visit Medications: Current Medications Acetaminophen (Acetaminophen 325 Mg Tab) 650 mg PO Q6H PRN PRN Reason: Headache/Fever Or Mild Pain Last Admin: 06/04/20 10:23 Dose: 650 mg Documented by: Hydrocodone Bitart/Acetaminophen (Hydrocodone/Acetaminophen 5/325 Mg Tablet) 1 tab PO Q4H PRN PRN Reason: Mild Pain (1-3) Last Admin: 06/02/20 13:30 Dose: 1 tab Documented by: Hydrocodone Bitart/Acetaminophen (Hydrocodone/Acetaminophen 5/325 Mg Tablet) 2 tab PO Q4H PRN PRN Reason: Moderate Pain (4-6) Last Admin: 06/03/20 00:13 Dose: 2 tab Documented by: Al Hydroxide/Mg Hydroxide (Mag-Al 1200 Mg/1200 Mg/30 Ml Udcup) 30 ml PO Q4H PRN PRN Reason: Indigestion Albuterol Sulfate (Albuterol 200 Puff (6.7gm Inhaler)) 2 puff INH [id number] PRN PRN Reason: Wheezing Albuterol/Ipratropium (Ipratropium/Albuterol Sulfate 3 Ml Neb) 3 ml NEB [id number] CHETAN Last Admin: 06/06/20 07:46 Dose: 3 ml Documented by: Artificial Tears (Artificial Tear Jamila 15 Ml Bot) 0 drop EA EYE PRN PRN PRN Reason: DRY EYES Last Admin: 06/01/20 10:56 Dose: 1 drp Documented by: Aspirin (Aspirin 325 Mg Enteric Coated Tablet) 325 mg PO DAILY [facility] Last Admin: 06/06/20 10:03 Dose: 325 mg Documented by: Atorvastatin Calcium (Atorvastatin Calcium 40 Mg Tab) 40 mg PO HS [facility] Last Admin: 06/05/20 20:23 Dose: 40 mg Documented by: Bisacodyl (Bisacodyl 5 Mg Tab) 10 mg PO Q12H PRN PRN Reason: Constipation Bisacodyl (Bisacodyl 10 Mg Supp) 10 mg DC Q12H PRN PRN Reason: Constipation Diphenhydramine HCl (Diphenhydramine 25 Mg Cap) 25 mg PO Q6H PRN PRN Reason: Itching & Insomnia or Boris Abrahan Docusate Sodium (Docusate 100 Mg Cap) 100 mg PO BID [facility] Last Admin: 06/06/20 10:04 Dose: 100 mg Documented by: Enoxaparin Sodium (Enoxaparin Sodium 40 Mg/0.4 Ml Syringe) 40 mg SC 2100 [facility] Last Admin: 06/05/20 20:23 Dose: 40 mg Documented by: Famotidine (Famotidine 20 Mg Tab) 20 mg PO BID [facility] Last Admin: 06/06/20 10:05 Dose: 20 mg Documented by: Folic Acid (Folic Acid 1 Mg Tab) 1 mg PO DAILY [facility] Last Admin: 06/06/20 10:05 Dose: 1 mg Documented by: Guaifenesin/Dextromethorphan (Guaifenesin Dm 100-10/5 Ml Udcup) 15 ml PO Q4H PRN PRN Reason: Cough Hydralazine HCl (Hydralazine 20 Mg/Ml Vial) 10 mg SLOW IVP Q6H PRN PRN Reason: To Maintain SBP< 140mmHG Iron/Minerals/Multivitamins (Multivitamin W/ Minerals 1 Tab) 1 tab PO DAILY [facility] Last Admin: 06/06/20 10:06 Dose: 1 tab Documented by: Lisinopril (Lisinopril 2.5 Mg Tab) 1.25 mg PO DAILY [facility] Last Admin: 06/06/20 10:05 Dose: 1.25 mg Documented by: Magnesium Hydroxide (Milk Of Magnesia 30 Ml Udcup) 30 ml PO Q12H PRN PRN Reason: Constipation Magnesium Oxide (Magnesium Oxide 400 Mg Tab) 400 mg PO DAILY [facility] Last Admin: 06/06/20 10:06 Dose: 400 mg Documented by: Metoprolol Succinate (Metoprolol Succinate Xl 25 Mg Tab) 12.5 mg PO DAILY [facility] Last Admin: 06/06/20 10:06 Dose: 12.5 mg Documented by: Mineral Oil (Mineral Oil Enema) 133 ml DC DAILYPRN PRN PRN Reason: Constipation Mometasone Furoate/Formoterol Fumar (Mometasone 200 Mcg/Formoterol 5 Mcg 120 Puff Inhaler) 2 puff INH BID-RT [facility] Last Admin: 06/06/20 07:46 Dose: 2 puff Documented by: Nitroglycerin (Nitroglycerin 0.4 Mg Tab (25 Tab Bottle)) 0.4 mg SL Q5MIN PRN PRN Reason: Chest Pain Ondansetron HCl (Ondansetron Pf 4 Mg/2 Ml Vial) 4 mg IVP Q6H PRN PRN Reason: Nausea/Vomiting Last Admin: 06/01/20 05:31 Dose: 4 mg Documented by: Sodium Chloride (Flush - Normal Saline 10 Ml Syringe) 10 ml IVF Q12HR [facility] Last Admin: 06/06/20 10:04 Dose: 10 ml Documented by: Thiamine HCl (Thiamine 100 Mg Tab) 100 mg PO DAILY [facility] Last Admin: 06/06/20 10:07 Dose: 100 mg Documented by: Zolpidem Tartrate (Zolpidem Tartrate 5 Mg Tab) 5 mg PO HSPRN PRN PRN Reason: Insomnia Vital Signs & Weight: Vital Signs Temp Pulse Resp BP Pulse Ox 06/06/20 11:09 97.9 F 94 14 105/58 L 96 06/06/20 10:05 91 06/06/20 07:39 97.9 F 91 20 97/64 100 06/06/20 07:30 100 06/06/20 04:10 98.0 F 92 20 94/59 L 95 06/06/20 00:25 92 20 105/56 L 06/06/20 00:11 93 L Admit Weight 178 lb 12.7 oz Weight 189 lb 14.4 oz - Physical Exam General: alert & oriented x3 HEENT: mucus membranes moist Neck: supple neck Cardiac: regular rate and rhythm Lungs: clear to auscultation Neuro: grossly intact Abdomen: active bowel sounds Extremities: no edema Skin: clear Musculoskeletal: no pain - Labs Result Diagrams: 06/06/20 03:55 06/06/20 03:55 Troponin/CKMB CK-MB (CK-2) 56.2 ng/mL (0-6.6) H* 05/29/20 22:25 Troponin I 13.301 ng/mL (< 0.028) H* 05/29/20 22:25 - Telemetry Sinus rhythms and dysrhythmias: sinus rhythm - Assessment/Plan Assessment/Plan: 1. NSTEMI 2. Severe LM disease. 3. COPD 4. Alcohol use. 5. Deconditioning. 6. Dilated cardiomyopathy 7. Ischemic Cardiomyopathy 8. LVEF at 30-35% on echo today. PLAN: - ASA and statin for life - On low dose ACEI and BB. - Increase PT as tolerated. - Will need Rehab. - [facility] before discharge.
--- NOTE | 2020-06-06 12:50 | PDOC.BPN ---
- Brief Progress Note [id number] Discharge summary dictated
[2020-06-06] MEDS: Atorvastatin Calcium 40 MG TAB PO SCH (20:18)
[2020-06-06] MEDS: Enoxaparin Sodium 40 MG/0.4 ML SYRINGE SC SCH (20:18)
--- NOTE | 2020-06-07 04:22 | DIS ---
DATE OF ADMISSION: 05/29/2020 DATE OF DISCHARGE: 06/06/2020 DISCHARGE DIAGNOSES: 1. Non-ST elevation myocardial infarction. 2. Status post coronary artery bypass graft surgery x3. 3. Ischemic cardiomyopathy with ejection fraction 30% to 35%. 4. Head and neck cancer. 5. Alcohol abuse. 6. Chronic obstructive pulmonary disease. 7. Hypertension. HOSPITAL COURSE: The patient is a 64-year-old male with past medical history of COPD, alcohol abuse, who recently completed radiation therapy for throat cancer. Lately, the patient has been having shortness of breath, which was resistant to typical nebulizer and bronchodilators. He presented with shortness of breath and chest pain. Cardiac catheterization demonstrated high-grade distal left main lesion with more marked disease in the right coronary and small diagonal isolated between the left main and the LAD lesion. The patient had decreased left ventricular function with hypokinesia of his anterior wall, apex, and septum on echocardiography. The patient underwent coronary artery bypass graft surgery x3. The patient was managed in the critical care unit postoperatively. There were periods, where the patient's blood pressure has been low, but in the last day or two, has been stable. He is currently on room air. He is feeling better and the patient was accepted at a group home facility in [place]. The patient will be discharged if all consultants agree today. PHYSICAL EXAMINATION: GENERAL: The patient is awake, alert, oriented, does not appear to be in distress. VITAL SIGNS: Blood pressure is 102/55, oxygen saturation is 96% on room air, pulse is 88, and respiratory rate is 18. HEAD AND NECK: Normocephalic. CHEST: Few bibasilar crackles. HEART: S1, S2. Regular. ABDOMEN: Soft, nontender. NEUROLOGIC: Awake, alert, oriented, moving extremities. PSYCH: Normal mood. EXTREMITIES: No clubbing. No cyanosis. Discharge diagnosis, as above. PLAN: The patient to be discharged to group home facility if all consultants agree. DISCHARGE MEDICATIONS: 1. Lisinopril 1.25 mg daily. 2. Lovenox 40 mg subcu daily. 3. Albuterol 2 puffs q.4 hours p.r.n. 4. Metoprolol 12.5 mg p.o. daily. 5. Dulera two puffs b.i.d. 6. Famotidine 20 mg p.o. twice a day. 7. Atorvastatin 40 mg p.o. at bedtime. 8. Nitroglycerin 0.4 mg sublingual q.5 minutes p.r.n. for chest pain. 9. Aspirin 325 mg p.o. daily. 10. Folic acid 1 mg p.o. daily. 11. Thiamine 100 mg p.o. daily. The patient is discharged in stable condition. DIET: Cardiac diet. Time spent in discharging the patient is 45 minutes. Job ID: [id number]
[2020-06-07] MEDS: Mometasone 200 MCG/Formoterol 5 MCG 120 PUFF INHALER INH SCH (08:00)
--- NOTE | 2020-06-07 08:49 | PRG ---
DATE OF SERVICE: 06/07/2020 SUBJECTIVE: Ruel Shelton is awake, alert, responsive. He is better. OBJECTIVE: VITAL SIGNS: Temperature 97, pulse 86, respiratory rate 16, saturations 96% on room air, blood pressure 106/61. CHEST: No wheezing. No crackles. CARDIAC: Normal S1. ABDOMEN: No masses. ASSESSMENT: Chronic obstructive pulmonary disease, congestive heart failure, cardiomyopathy, coronary artery bypass grafting. PLAN: He is going to be discharged home. He can follow up in office any time if he wants to. Job ID: [id number]
[2020-06-07 08:55] VITALS: TEMP 97.8
[2020-06-07] MEDS: Magnesium Oxide 400 MG TAB PO SCH (10:31)
[2020-06-07] MEDS: Folic Acid 1 MG TAB PO SCH (10:31)
[2020-06-07] MEDS: Docusate 100 MG CAP PO SCH (10:31)
[2020-06-07] MEDS: Aspirin 325 mg Enteric Coated Tablet PO SCH (10:32)
[2020-06-07] MEDS: Thiamine 100 MG TAB PO SCH (10:33)
[2020-06-07] MEDS: Multivitamin W/ Minerals 1 TAB PO SCH (10:33)
[2020-06-07] MEDS: Famotidine 20 MG TAB PO SCH (10:33)
[2020-06-07] MEDS: Lisinopril 2.5 MG TAB PO SCH (10:45)
--- NOTE | 2020-06-07 15:48 | PDOC.CPN ---
- Subjective Date: 06/07/20 Time: 15:45 Interval history: He is doing much better today. SOB at baseline. - Review of Systems General: denies: fever/chills, weight/appetite/sleep changes, night sweats, fatigue Respiratory: denies: cough, congestion, shortness of breath, exercise intolerance Cardiovascular: denies: chest pain, palpitation, edema, paroxysmal nocturnal dyspnea, orthopnea Gastrointestinal: denies: nausea, vomiting, diarrhea, constipation, abd pain, GI bleeding Musculoskeletal: denies: pain, tenderness, stiffness, swelling, arthritis/arth ralgias Neurological: denies: numbness, syncope, seizure, weakness - Objective Allergies/Adverse Reactions: Allergies Allergy/AdvReac Type Severity Reaction Status Date / Time cetuximab [From Erbitux] Allergy Anaphylaxis Verified 09/09/19 23:11 Visit Medications: Current Medications Acetaminophen (Acetaminophen 325 Mg Tab) 650 mg PO Q6H PRN PRN Reason: Headache/Fever Or Mild Pain Last Admin: 06/04/20 10:23 Dose: 650 mg Documented by: Hydrocodone Bitart/Acetaminophen (Hydrocodone/Acetaminophen 5/325 Mg Tablet) 1 tab PO Q4H PRN PRN Reason: Mild Pain (1-3) Last Admin: 06/02/20 13:30 Dose: 1 tab Documented by: Hydrocodone Bitart/Acetaminophen (Hydrocodone/Acetaminophen 5/325 Mg Tablet) 2 tab PO Q4H PRN PRN Reason: Moderate Pain (4-6) Last Admin: 06/03/20 00:13 Dose: 2 tab Documented by: Al Hydroxide/Mg Hydroxide (Mag-Al 1200 Mg/1200 Mg/30 Ml Udcup) 30 ml PO Q4H PRN PRN Reason: Indigestion Albuterol Sulfate (Albuterol 200 Puff (6.7gm Inhaler)) 2 puff INH [id number] P RN PRN Reason: Wheezing Albuterol/Ipratropium (Ipratropium/Albuterol Sulfate 3 Ml Neb) 3 ml NEB [id number] CHETAN Last Admin: 06/07/20 14:53 Dose: Not Given Documented by: Artificial Tears (Artificial Tear Jamila 15 Ml Bot) 0 drop EA EYE PRN PRN PRN Reason: DRY EYES Last Admin: 06/01/20 10:56 Dose: 1 drp Documented by: Aspirin (Aspirin 325 Mg Enteric Coated Tablet) 325 mg PO DAILY [facility] Last Admin: 06/07/20 10:32 Dose: 325 mg Documented by: Aspirin (Aspirin 81 Mg Enteric Coated Tablet) 81 mg PO BID [facility] Atorvastatin Calcium (Atorvastatin Calcium 40 Mg Tab) 40 mg PO HS [facility] Last Admin: 06/06/20 20:18 Dose: 40 mg Documented by: Bisacodyl (Bisacodyl 5 Mg Tab) 10 mg PO Q12H PRN PRN Reason: Constipation Bisacodyl (Bisacodyl 10 Mg Supp) 10 mg MN Q12H PRN PRN Reason: Constipation Diphenhydramine HCl (Diphenhydramine 25 Mg Cap) 25 mg PO Q6H PRN PRN Reason: Itching & Insomnia or Boris Abrahan Docusate Sodium (Docusate 100 Mg Cap) 100 mg PO BID [facility] Last Admin: 06/07/20 10:31 Dose: 100 mg Documented by: Enoxaparin Sodium (Enoxaparin Sodium 40 Mg/0.4 Ml Syringe) 40 mg SC 2100 [facility] Last Admin: 06/06/20 20:18 Dose: 40 mg Documented by: Famotidine (Famotidine 20 Mg Tab) 20 mg PO BID [facility] Last Admin: 06/07/20 10:33 Dose: 20 mg Documented by: Folic Acid (Folic Acid 1 Mg Tab) 1 mg PO DAILY [facility] Last Admin: 06/07/20 10:31 Dose: 1 mg Documented by: Guaifenesin/Dextromethorphan (Guaifenesin Dm 100-10/5 Ml Udcup) 15 ml PO Q4H PRN PRN Reason: Cough Hydralazine HCl (Hydralazine 20 Mg/Ml Vial) 10 mg SLOW IVP Q6H PRN PRN Reason: To Maintain SBP< 140mmHG Iron/Minerals/Multivitamins (Multivitamin W/ Minerals 1 Tab) 1 tab PO DAILY [facility] Last Admin: 06/07/20 10:33 Dose: 1 tab Documented by: Iron/Minerals/Multivitamins (Multivitamin W/ Minerals 1 Tab) 1 tab PO DAILY [facility] Lisinopril (Lisinopril 2.5 Mg Tab) 1.25 mg PO DAILY [facility] Last Admin: 06/07/20 10:45 Dose: Not Given Documented by: Magnesium Hydroxide (Milk Of Magnesia 30 Ml Udcup) 30 ml PO Q12H PRN PRN Reason: Constipation Magnesium Oxide (Magnesium Oxide 400 Mg Tab) 400 mg PO DAILY [facility] Last Admin: 06/07/20 10:31 Dose: 400 mg Documented by: Metoprolol Succinate (Metoprolol Succinate Xl 25 Mg Tab) 12.5 mg PO DAILY [facility] Last Admin: 06/07/20 10:43 Dose: 12.5 mg Documented by: Mineral Oil (Mineral Oil Enema) 133 ml MN DAILYPRN PRN PRN Reason: Constipation Mometasone Furoate/Formoterol Fumar (Mometasone 200 Mcg/Formoterol 5 Mcg 120 Puff Inhaler) 2 puff INH BID-RT [facility] Last Admin: 06/07/20 08:00 Dose: Not Given Documented by: Mometasone Furoate/Formoterol Fumar (Mometasone 100 Mcg/Formoterol 5 Mcg 120 Puff Inhaler) 2 puff INH BID-RT [facility] Nitroglycerin (Nitroglycerin 0.4 Mg Tab (25 Tab Bottle)) 0.4 mg SL Q5MIN PRN PRN Reason: Chest Pain Ondansetron HCl (Ondansetron Pf 4 Mg/2 Ml Vial) 4 mg IVP Q6H PRN PRN Reason: Nausea/Vomiting Last Admin: 06/01/20 05:31 Dose: 4 mg Documented by: Sodium Chloride (Flush - Normal Saline 10 Ml Syringe) 10 ml IVF Q12HR [facility] Last Admin: 06/07/20 10:34 Dose: 10 ml Documented by: Thiamine HCl (Thiamine 100 Mg Tab) 100 mg PO DAILY [facility] Last Admin: 06/07/20 10:33 Dose: 100 mg Documented by: Zolpidem Tartrate (Zolpidem Tartrate 5 Mg Tab) 5 mg PO HSPRN PRN PRN Reason: Insomnia Vital Signs & Weight: Vital Signs Temp Pulse Pulse Resp BP BP BP 06/07/20 10:45 90 97/52 L 06/07/20 08:50 90 107/56 L 91/54 L 06/07/20 08:00 97.8 F 90 18 06/07/20 04:51 BP Pulse Ox 06/07/20 10:45 06/07/20 08:50 06/07/20 08:00 91/54 L 96 06/07/20 04:51 97 Admit Weight 178 lb 12.7 oz Weight 195 lb 3.2 oz - Physical Exam General: alert & oriented x3 HEENT: mucus membranes moist Neck: supple neck Cardiac: regular rate and rhythm Lungs: clear to auscultation Neuro: grossly intact Abdomen: active bowel sounds Extremities: no edema Skin: clear Musculoskeletal: no pain - Labs Result Diagrams: 06/06/20 03:55 06/06/20 03:55 Troponin/CKMB CK-MB (CK-2) 56.2 ng/mL (0-6.6) H* 05/29/20 22:25 Troponin I 13.301 ng/mL (< 0.028) H* 05/29/20 22:25 - Telemetry Sinus rhythms and dysrhythmias: sinus rhythm - Assessment/Plan Assessment/Plan: 1. NSTEMI 2. Severe LM disease. 3. COPD 4. Alcohol use. 5. Deconditioning. 6. Dilated cardiomyopathy 7. Ischemic Cardiomyopathy 8. LVEF at 30-35% PLAN: - ASA and statin for life - On low dose ACEI and BB. - Increase PT as tolerated. - [facility] in place. - May discharge to [facility] at any time from cardiac perspective.
[2020-06-07 16:34] VITALS: BP 116/68
[2020-06-07] MEDS ORDERED: Mometasone 100 MCG/Formoterol 5 MCG 120 PUFF INHALER INH SCH (18:30)
[2020-06-07] MEDS ORDERED: Aspirin 81 mg Enteric Coated Tablet PO SCH (21:00)
[2020-06-08] MEDS ORDERED: Multivitamin W/ Minerals 1 TAB PO SCH (09:00)
== END 2020-06-07 14:25 | disposition swing bed (61) | DRG 233 ==
LOC: ERS 16:02 → ERHOLD 17:55 → CCU 05-30 13:35 → 2NO 06-02 15:29
PROVIDERS: ADMIT Internal Medicine; ATTEND Internal Medicine
PROC: B2111ZZ Fluoroscopy of Multiple Coronary Arteries using Low Osmolar Contrast (ICD-10-PCS; principal; 2020-05-29)
PROC: 02100Z9 Bypass Coronary Artery, One Artery from Left Internal Mammary, Open Approach (ICD-10-PCS; 2020-05-30)
PROC: 021109W Bypass Coronary Artery, Two Arteries from Aorta with Autologous Venous Tissue, Open Approach (ICD-10-PCS; 2020-05-30)
PROC: 06BQ4ZZ Excision of Left Saphenous Vein, Percutaneous Endoscopic Approach (ICD-10-PCS; 2020-05-30)
PROC: 5A1221Z Performance of Cardiac Output, Continuous (ICD-10-PCS; 2020-05-30)
PROC: 3E033XZ Introduction of Vasopressor into Peripheral Vein, Percutaneous Approach (ICD-10-PCS; 2020-05-30)
DX: I25.118 Atherosclerotic heart disease of native coronary artery with other forms of angina pectoris (principal); J96.01 Acute respiratory failure with hypoxia; I21.4 Non-ST elevation (NSTEMI) myocardial infarction; J18.9 Pneumonia, unspecified organism; E87.1 Hypo-osmolality and hyponatremia; J44.0 Chronic obstructive pulmonary disease with (acute) lower respiratory infection; Z20.822 Contact with and (suspected) exposure to COVID-19; C14.0 Malignant neoplasm of pharynx, unspecified; F10.10 Alcohol abuse, uncomplicated; F12.10 Cannabis abuse, uncomplicated; I11.0 Hypertensive heart disease with heart failure; I50.9 Heart failure, unspecified; I95.9 Hypotension, unspecified; I25.5 Ischemic cardiomyopathy; I42.8 Other cardiomyopathies; Z87.891 Personal history of nicotine dependence; Z88.8 Allergy status to other drugs, medicaments and biological substances; Z79.82 Long term (current) use of aspirin; Z79.899 Other long term (current) drug therapy
CPT/HCPCS: 36415; 36416; 36430; 71045; 71275; 76942; 80048; 80053; 80061; 80306; 80307; 81001; 82553; 82607; 82728; 82746; 82805; 83036; 83605; 83735; 83930; 84443; 85025; 85610; 85730; 86140; 86850; 86900; 86901; 93005; 93010; 93306; 93454; 94002; 94003; 94150; 94640; 96365; 96372; A4217; J0690; J0696; J1644; J1650; J1815; J1885; J1940; J2001; J2150; J2250; J2270; J2405; J2440; J2543; J2704; J2720; J2920; J3010; J3370; J3411; J3475; J3480; J3490; J7512; J7620; P9045; Q9967; S0017; S0028

== ENCOUNTER 2021-01-23 13:53 | Inpatient (IN) | payer MEDICARE, MEDICAID ==
[~2021-01-23 13:53] MED LIST changes: -Iopamidol-370 76% 500 ML 1 ML ONE; +Lorazepam 1 MG TAB PO PRN
[2021-01-23 14:48] LABS: #Basophils 0.1 thou/uL (0.0-0.2); #Eosinphils 0.1 thou/uL (0.0-0.7); #Lymphocytes 1.4 thou/uL (1.20-3.40); #Monocytes 0.6 thou/uL (0.11-0.59); %Basophils 1.1 % (0.0-1.0); %Eosinophils 0.9 % (0.0-10.0); %Lymphocytes 19.3 % (21.0-51.0); %Monocytes 8.1 % (0.0-10.0); %Neutrophils 70.5 % (42.0-75.0); Hemoglobin 14.3 g/dL (14.0-18.0); Mean Corpuscular HGB CONC 32.3 g/dL (32.0-36.0); Mean Corpuscular Volume 96.2 fL (78.0-98.0); Mean Platelet Volume 9.4 fL (7.4-10.4); Platelet Count 207 thou/uL (130-400); RBC Distribution Width 11.1 % (11.5-14.5); Red Blood Cell (RBC) Count 4.61 mill/uL (4.70-6.10); White Blood Cell (WBC) Count 7.1 thou/uL (4.8-10.8)
[2021-01-23 15:30] LABS: ALT (SGPT) 20 U/L (8-55); AST (SGOT) 26 U/L (5-34); Albumin 3.6 g/dL (3.4-4.8); Alkaline Phosphatase 152 U/L (40-110); Anion Gap 14 mmol/L (10-20); BUN (Urea Nitrogen) 8 mg/dL (8.4-25.7); Bilirubin, Total 0.8 mg/dL (0.2-1.2); Calc. Creatinine Clearance 0 mL/min (70-130); Calcium 9.1 mg/dL (7.8-10.44); Carbon Dioxide 29 mmol/L (23-31); Chloride 92 mmol/L (98-107); Globulin 2.9 g/dL (2.4-3.5); Glucose 76 mg/dL (80-115); Potassium 3.8 mmol/L (3.5-5.1); Protein, Total 6.5 g/dL (5.8-8.1); Sodium 131 mmol/L (136-145)
[2021-01-23] MEDS ORDERED: Iopamidol-370 76% 500 ML 1 ML ONE (15:56)
[2021-01-23] MEDS ORDERED: Ondansetron PF 4 MG/2 ML Vial IVP PRN (21:07)
[2021-01-23] MEDS ORDERED: Nitroglycerin 0.4 MG TAB (25 Tab Bottle) SL PRN (21:07)
[2021-01-23] MEDS ORDERED: Lorazepam 2 MG/ML VIAL IM PRN (21:30)
[2021-01-23] MEDS ORDERED: Electrolyte Replacement Protocol 1 EACH FS PRN (21:30)
[2021-01-23] MEDS ORDERED: Ondansetron ODT 4 MG TAB PO PRN (21:30)
[2021-01-23 22:17] LABS: Troponin I 0.027 ng/mL (< 0.028)
[2021-01-23] MEDS: Lorazepam 1 MG TAB PO SCH ×2 (22:38→22:39)
[2021-01-23] MEDS: Thiamine HCl 200 MG/2 ML VIAL SLOW IVP SCH (22:43)
[2021-01-23] MEDS ORDERED: Lorazepam 2 MG/ML VIAL SLOW IVP PRN (23:57)
[2021-01-23] MEDS ORDERED: Lorazepam 2 MG/ML VIAL SLOW IVP SCH (23:59)
[2021-01-24 01:29] LABS: Troponin I 0.029 ng/mL (< 0.028)
[2021-01-24 04:53] LABS: #Eosinphils 0.1 thou/uL (0.0-0.7); #Lymphocytes 1.4 thou/uL (1.20-3.40); #Monocytes 0.8 thou/uL (0.11-0.59); #Neutrophils 7.1 thou/uL (1.40-6.50); %Basophils 0.4 % (0.0-1.0); %Eosinophils 1.1 % (0.0-10.0); %Lymphocytes 14.6 % (21.0-51.0); %Monocytes 8.3 % (0.0-10.0); %Neutrophils 75.7 % (42.0-75.0); Hemoglobin 14.4 g/dL (14.0-18.0); Mean Corpuscular HGB CONC 32.5 g/dL (32.0-36.0); Mean Corpuscular Hemoglobin 31.6 pg (27.0-31.0); Mean Corpuscular Volume 97.3 fL (78.0-98.0); Mean Platelet Volume 9.2 fL (7.4-10.4); Platelet Count 195 thou/uL (130-400); RBC Distribution Width 11.1 % (11.5-14.5); Red Blood Cell (RBC) Count 4.55 mill/uL (4.70-6.10); White Blood Cell (WBC) Count 9.4 thou/uL (4.8-10.8)
[2021-01-24 05:15] LABS: Anion Gap 17 mmol/L (10-20); BUN (Urea Nitrogen) 8 mg/dL (8.4-25.7); Calc. Creatinine Clearance 116 mL/min (70-130); Calcium 8.9 mg/dL (7.8-10.44); Carbon Dioxide 27 mmol/L (23-31); Cardiac Risk 2.6 (Less than 4.5); Chloride 94 mmol/L (98-107); Cholesterol 109 mg/dl (< 200 Desired); Glucose 63 mg/dL (80-115); HDL Cholesterol 42 mg/dL (>60 Neg Risk); LDL Cholesterol, Calculated 54 mg/dL; Potassium 3.7 mmol/L (3.5-5.1); Sodium 134 mmol/L (136-145); Triglycerides 65 mg/dL (Less than 150)
[2021-01-24 06:03] LABS: Albumin 3.4 g/dL (3.4-4.8); Anion Gap 19 mmol/L (10-20); BUN (Urea Nitrogen) 8 mg/dL (8.4-25.7); Bilirubin, Direct 0.4 mg/dL (0.1-0.3); Calc. Creatinine Clearance 111 mL/min (70-130); Calcium 8.8 mg/dL (7.8-10.44); Carbon Dioxide 25 mmol/L (23-31); Chloride 93 mmol/L (98-107); Glucose 63 mg/dL (80-115); Magnesium 1.7 mg/dL (1.6-2.6); Phosphorus 3.6 mg/dL (2.3-4.7); Potassium 3.7 mmol/L (3.5-5.1); Sodium 133 mmol/L (136-145)
[2021-01-24 06:21] LABS: Syphilis Antibody Nonreactive (Nonreactive); Syphilis Antibody Index 0.04 S/CO (<1.00 Non-Reactive)
[2021-01-24] MEDS: Lorazepam 2 MG/ML VIAL SLOW IVP SCH ×2 (06:33→12:08)
[2021-01-24] MEDS ORDERED: Magnesium 2 GM/50 ML 2 GM in Premix Bag 1 BAG IVPB SCH (07:00)
[2021-01-24] MEDS ORDERED: Multivit, Therapeutic 1 TAB PO SCH (09:00)
[2021-01-24] MEDS ORDERED: Aspirin 300 MG Suppository PR SCH (09:00)
[2021-01-24] MEDS ORDERED: Folic Acid 1 MG TAB PO SCH (09:00)
[2021-01-24 11:13] LABS: Amphetamine Not Detected (NotDetected); Barbiturates Screen Not Detected (NotDetected); Benzodiazepine Screen Detected (NotDetected); Cocaine Metabolite Screen Not Detected (NotDetected); Methadone Not Detected (NotDetected); Methamphetamine Not Detected (NotDetected); Opiate Screen Not Detected (NotDetected); Oxycodone Screen Not Detected (NotDetected); Phencyclidine (PCP) Not Detected (NotDetected); THC/Cannabinoid Screen Detected (NotDetected); Tricyclic Screen Not Detected (NotDetected)
[2021-01-24] MEDS: D5 0.9% NS w/ 20 mEq KCl 1,000 ML IV SCH (11:20)
[2021-01-24] MEDS ORDERED: metroNIDAZOLE 500 MG/100 ML BAG ONE (11:21)
[2021-01-24 12:30] LABS: SARS-CoV-2 PCR by NAA Not Detected (NotDetected)
[2021-01-24] MEDS: Atorvastatin Calcium 40 MG TAB PO SCH (20:55)
[2021-01-24] MEDS: Metoprolol Tartrate 25 MG TAB PO SCH (20:55)
[2021-01-24] MEDS: Thiamine HCl 200 MG/2 ML VIAL SLOW IVP SCH (20:55)
[2021-01-24] MEDS ORDERED: Lorazepam 2 MG/ML VIAL SLOW IVP PRN (21:30)
[2021-01-25] MEDS ORDERED: Lorazepam 2 MG/ML VIAL SLOW IVP SCH (06:00)
[2021-01-25] MEDS: D5 0.9% NS w/ 20 mEq KCl 1,000 ML IV SCH (06:20)
[2021-01-25] MEDS: Mometasone 200 MCG/Formoterol 5 MCG 120 PUFF INHALER INH SCH (07:35)
[2021-01-25] MEDS: Multivit, Therapeutic 1 TAB PO SCH (10:33)
[2021-01-25] MEDS: Folic Acid 1 MG TAB PO SCH (10:33)
[2021-01-25] MEDS: Furosemide 20 MG TAB PO SCH (10:33)
[2021-01-25] MEDS: Ferrous Sulfate 325 MG TAB PO SCH (10:33)
[2021-01-25] MEDS: Metoprolol Tartrate 25 MG TAB PO SCH ×2 (10:33→20:09)
[2021-01-25] MEDS: Potassium Chloride 20 MEQ TAB PO SCH (10:33)
[2021-01-25] MEDS ORDERED: PROPOFOL 200 MG/20 ML VIAL ONE (14:48)
[2021-01-25] MEDS: Atorvastatin Calcium 40 MG TAB PO SCH (20:09)
[2021-01-25] MEDS: Thiamine HCl 200 MG/2 ML VIAL SLOW IVP SCH (20:09)
[2021-01-25] MEDS ORDERED: Lorazepam 2 MG/ML VIAL SLOW IVP PRN (21:30)
[2021-01-26] MEDS: D5 0.9% NS w/ 20 mEq KCl 1,000 ML IV SCH ×2 (02:21→20:47)
[2021-01-26] MEDS: Mometasone 200 MCG/Formoterol 5 MCG 120 PUFF INHALER INH SCH (07:54)
[2021-01-26] MEDS: Furosemide 20 MG TAB PO SCH (08:55)
[2021-01-26] MEDS: Ferrous Sulfate 325 MG TAB PO SCH (08:55)
[2021-01-26] MEDS: Folic Acid 1 MG TAB PO SCH (08:56)
[2021-01-26] MEDS: Potassium Chloride 20 MEQ TAB PO SCH (08:56)
[2021-01-26] MEDS: Metoprolol Tartrate 25 MG TAB PO SCH ×2 (08:56→20:47)
[2021-01-26] MEDS: Multivit, Therapeutic 1 TAB PO SCH (08:56)
[2021-01-26] MEDS ORDERED: Thiamine 100 MG TAB PO SCH (09:00)
[2021-01-26] MEDS ORDERED: FLU VACC QS2021-22(65YR UP)/PF 240 MCG/0.7 ML SYRINGE IM ONE (09:00)
[2021-01-26] MEDS: Atorvastatin Calcium 40 MG TAB PO SCH (20:47)
[2021-01-27 05:22] LABS: #Eosinphils 0.4 thou/uL (0.0-0.7); #Lymphocytes 1.7 thou/uL (1.20-3.40); #Monocytes 0.6 thou/uL (0.11-0.59); #Neutrophils 3.8 thou/uL (1.40-6.50); %Basophils 0.4 % (0.0-1.0); %Eosinophils 6.6 % (0.0-10.0); %Lymphocytes 26.2 % (21.0-51.0); %Monocytes 8.4 % (0.0-10.0); %Neutrophils 58.4 % (42.0-75.0); Hemoglobin 13.9 g/dL (14.0-18.0); Mean Corpuscular HGB CONC 32.2 g/dL (32.0-36.0); Mean Corpuscular Hemoglobin 31.5 pg (27.0-31.0); Platelet Count 191 thou/uL (130-400); RBC Distribution Width 11.1 % (11.5-14.5); White Blood Cell (WBC) Count 6.6 thou/uL (4.8-10.8)
[2021-01-27 05:43] LABS: Anion Gap 10 mmol/L (10-20); BUN (Urea Nitrogen) Less than 4 mg/dL (8.4-25.7); Calc. Creatinine Clearance 143 mL/min (70-130); Calcium 8.1 mg/dL (7.8-10.44); Carbon Dioxide 27 mmol/L (23-31); Chloride 99 mmol/L (98-107); Glucose 95 mg/dL (80-115); Potassium 3.6 mmol/L (3.5-5.1); Sodium 132 mmol/L (136-145)
[2021-01-27] MEDS ORDERED: Lorazepam 2 MG/ML VIAL SLOW IVP PRN (06:00)
[2021-01-27] MEDS: Mometasone 200 MCG/Formoterol 5 MCG 120 PUFF INHALER INH SCH (07:31)
[2021-01-27] MEDS: Metoprolol Tartrate 25 MG TAB PO SCH ×2 (09:00→20:51)
[2021-01-27] MEDS: Multivit, Therapeutic 1 TAB PO SCH (09:00)
[2021-01-27] MEDS: Potassium Chloride 20 MEQ TAB PO SCH (09:00)
[2021-01-27] MEDS: Folic Acid 1 MG TAB PO SCH (09:01)
[2021-01-27] MEDS: Ferrous Sulfate 325 MG TAB PO SCH (09:01)
[2021-01-27] MEDS: Furosemide 20 MG TAB PO SCH (09:01)
[2021-01-27] MEDS ORDERED: Iopamidol 370 76% 100 ML VIAL ONE (09:30)
[2021-01-27] MEDS: D5 0.9% NS w/ 20 mEq KCl 1,000 ML IV SCH (16:57)
[2021-01-27] MEDS: Atorvastatin Calcium 40 MG TAB PO SCH (20:51)
[2021-01-27] MEDS ORDERED: HYDROcodone/Acetaminophen 5/325 mg Tablet PO PRN (22:32)
[2021-01-28 04:14] LABS: #Eosinphils 0.3 thou/uL (0.0-0.7); #Lymphocytes 1.4 thou/uL (1.20-3.40); #Monocytes 0.5 thou/uL (0.11-0.59); #Neutrophils 2.7 thou/uL (1.40-6.50); %Basophils 0.4 % (0.0-1.0); %Eosinophils 6.3 % (0.0-10.0); %Monocytes 10.2 % (0.0-10.0); %Neutrophils 55.1 % (42.0-75.0); Hemoglobin 13.8 g/dL (14.0-18.0); Mean Corpuscular HGB CONC 34.4 g/dL (32.0-36.0); Mean Corpuscular Hemoglobin 33.4 pg (27.0-31.0); Mean Corpuscular Volume 97.1 fL (78.0-98.0); Mean Platelet Volume 8.6 fL (7.4-10.4); Platelet Count 182 thou/uL (130-400); Red Blood Cell (RBC) Count 4.13 mill/uL (4.70-6.10); White Blood Cell (WBC) Count 4.9 thou/uL (4.8-10.8)
[2021-01-28] MEDS: Mometasone 200 MCG/Formoterol 5 MCG 120 PUFF INHALER INH SCH (08:15)
[2021-01-28] MEDS: Ferrous Sulfate 325 MG TAB PO SCH (08:37)
[2021-01-28] MEDS: Furosemide 20 MG TAB PO SCH (08:38)
[2021-01-28] MEDS: Metoprolol Tartrate 25 MG TAB PO SCH ×2 (08:38→20:17)
[2021-01-28] MEDS: Folic Acid 1 MG TAB PO SCH (08:38)
[2021-01-28] MEDS: Multivit, Therapeutic 1 TAB PO SCH (08:41)
[2021-01-28] MEDS: Potassium Chloride 20 MEQ TAB PO SCH (08:48)
[2021-01-28] MEDS: D5 0.9% NS w/ 20 mEq KCl 1,000 ML IV SCH (17:54)
[2021-01-28] MEDS: Atorvastatin Calcium 40 MG TAB PO SCH (20:17)
[2021-01-29 04:56] LABS: #Eosinphils 0.3 thou/uL (0.0-0.7); #Lymphocytes 1.6 thou/uL (1.20-3.40); #Monocytes 0.7 thou/uL (0.11-0.59); #Neutrophils 3.1 thou/uL (1.40-6.50); %Basophils 0.1 % (0.0-1.0); %Eosinophils 5.8 % (0.0-10.0); %Lymphocytes 27.4 % (21.0-51.0); %Monocytes 12.5 % (0.0-10.0); %Neutrophils 54.2 % (42.0-75.0); Hemoglobin 14.5 g/dL (14.0-18.0); Mean Corpuscular Volume 97.1 fL (78.0-98.0); Mean Platelet Volume 9.2 fL (7.4-10.4); Platelet Count 187 thou/uL (130-400); RBC Distribution Width 11.1 % (11.5-14.5); Red Blood Cell (RBC) Count 4.37 mill/uL (4.70-6.10); White Blood Cell (WBC) Count 5.7 thou/uL (4.8-10.8)
[2021-01-29] MEDS: Mometasone 200 MCG/Formoterol 5 MCG 120 PUFF INHALER INH SCH (07:53)
[2021-01-29] MEDS: Potassium Chloride 20 MEQ TAB PO SCH (08:05)
[2021-01-29] MEDS: Folic Acid 1 MG TAB PO SCH (08:05)
[2021-01-29] MEDS: Ferrous Sulfate 325 MG TAB PO SCH (08:06)
[2021-01-29] MEDS: Multivit, Therapeutic 1 TAB PO SCH (08:06)
[2021-01-29] MEDS: Furosemide 20 MG TAB PO SCH (08:07)
[2021-01-29] MEDS: Metoprolol Tartrate 25 MG TAB PO SCH ×2 (08:11→20:39)
[2021-01-29] MEDS: D5 0.9% NS w/ 20 mEq KCl 1,000 ML IV SCH (09:49)
[2021-01-29 11:13] VITALS: BMI 20.9
[2021-01-29] MEDS: Hydrocodone-Acetamin 15 ML UDCUP PO PRN (19:22)
[2021-01-29] MEDS: Atorvastatin Calcium 40 MG TAB PO SCH (20:39)
[2021-01-30] MEDS: Mometasone 200 MCG/Formoterol 5 MCG 120 PUFF INHALER INH SCH (07:32)
[2021-01-30] MEDS: Hydrocodone-Acetamin 15 ML UDCUP PO PRN ×2 (07:57→18:40)
[2021-01-30] MEDS: Metoprolol Tartrate 25 MG TAB PO SCH (08:01)
[2021-01-30] MEDS: Multivit, Therapeutic 1 TAB PO SCH (08:01)
[2021-01-30] MEDS: Ferrous Sulfate 325 MG TAB PO SCH (08:01)
[2021-01-30] MEDS: Folic Acid 1 MG TAB PO SCH (08:01)
[2021-01-30] MEDS: Potassium Chloride 20 MEQ TAB PO SCH (08:01)
[2021-01-30] MEDS: Furosemide 20 MG TAB PO SCH (08:01)
[2021-01-30 16:17] VITALS: BP 139/63; TEMP 98.5
== END 2021-01-30 19:29 | disposition home or self-care (01) | DRG 374 ==
LOC: ERS 13:53 → 2NO 17:15 → OBSVTOIN 01-24 15:27 → ONC 01-27 21:48
PROVIDERS: ADMIT Family Medicine; ATTEND Internal Medicine
PROC: 0D718ZZ Dilation of Upper Esophagus, Via Natural or Artificial Opening Endoscopic (ICD-10-PCS; principal; 2021-01-25)
PROC: 0DB18ZX Excision of Upper Esophagus, Via Natural or Artificial Opening Endoscopic, Diagnostic (ICD-10-PCS; 2021-01-25)
PROC: 3E0G76Z Introduction of Nutritional Substance into Upper GI, Via Natural or Artificial Opening (ICD-10-PCS; 2021-01-27)
DX: C15.3 Malignant neoplasm of upper third of esophagus (principal); G92.8 Other toxic encephalopathy; E87.1 Hypo-osmolality and hyponatremia; E44.0 Moderate protein-calorie malnutrition; I42.0 Dilated cardiomyopathy; Z20.822 Contact with and (suspected) exposure to COVID-19; Z68.21 Body mass index [BMI] 21.0-21.9, adult; F10.20 Alcohol dependence, uncomplicated; I10 Essential (primary) hypertension; I25.10 Atherosclerotic heart disease of native coronary artery without angina pectoris; F17.210 Nicotine dependence, cigarettes, uncomplicated; F12.10 Cannabis abuse, uncomplicated; I25.5 Ischemic cardiomyopathy; I08.1 Rheumatic disorders of both mitral and tricuspid valves; E78.00 Pure hypercholesterolemia, unspecified; R13.12 Dysphagia, oropharyngeal phase; T42.4X5A Adverse effect of benzodiazepines, initial encounter; Z71.6 Tobacco abuse counseling; Z88.8 Allergy status to other drugs, medicaments and biological substances; I25.2 Old myocardial infarction; Z95.1 Presence of aortocoronary bypass graft; Z85.21 Personal history of malignant neoplasm of larynx; Z79.899 Other long term (current) drug therapy; Z79.82 Long term (current) use of aspirin; Z82.5 Family history of asthma and other chronic lower respiratory diseases; Z82.0 Family history of epilepsy and other diseases of the nervous system; Z92.3 Personal history of irradiation; Z92.21 Personal history of antineoplastic chemotherapy
CPT/HCPCS: 36415; 70492; 71045; 71275; 74177; 80048; 80053; 80061; 80306; 82248; 82553; 83735; 83880; 83935; 84300; 84484; 85025; 86780; 88305; 93005; 93306; 96374; 96375; 96376; G0378; J2060; J2704; J3411; J3475; J3480; Q9967; U0003; U0005

== ENCOUNTER 2021-02-18 10:01 | Outpatient (CLI) | payer MEDICARE, MEDICAID | END 2021-02-18 10:02 | disposition home or self-care (01) | LOC: PET 10:01 | PROVIDERS: ATTEND Radiology Radiation Oncology | DX: C15.3 Malignant neoplasm of upper third of esophagus (principal); R91.8 Other nonspecific abnormal finding of lung field | CPT/HCPCS: 78815; A9552 ==

== ENCOUNTER 2021-03-07 03:02 | Inpatient (IN) | payer MEDICARE, MEDICAID ==
[2021-03-07] MEDS ORDERED: Ondansetron PF 4 MG/2 ML Vial IVP PRN (03:15)
[2021-03-07] MEDS ORDERED: Ondansetron ODT 4 MG TAB SL PRN (03:15)
[2021-03-07] MEDS ORDERED: Acetaminophen 325 MG TAB PO PRN (06:39)
[2021-03-07] MEDS ORDERED: Acetaminophen 650 MG Suppository PR PRN (06:39)
[2021-03-07] MEDS ORDERED: Enoxaparin Sodium 40 MG/0.4 ML SYRINGE SC SCH (09:00)
[2021-03-07] MEDS ORDERED: Electrolyte Replacement Protocol 1 EACH FS SCH (10:00)
[2021-03-07] MEDS ORDERED: Electrolyte Replacement Protocol FS PRN (10:15)
[2021-03-07] MEDS: Enoxaparin Sodium 80 MG/0.8 ML SYRINGE SC SCH ×2 (10:33→21:25)
[2021-03-07] MEDS: Cefepime 2 GM in Sodium Chloride 0.9% 100 ML IVPB SCH ×2 (10:33→21:51)
[2021-03-07] MEDS: Azithromycin 500 MG in Sodium Chloride 0.9% 250 ML 250 ML IVPB SCH (10:34)
[2021-03-07 11:07] LABS: Calcium 7.9 mg/dL (7.8-10.44); Chloride 94 mmol/L (98-107); Potassium 4.4 mmol/L (3.5-5.1); Sodium 121 mmol/L (136-145)
[2021-03-07 12:09] LABS: Glucose 103 mg/dL (80-115)
[2021-03-07 12:10] LABS: Anion Gap 10 mmol/L (10-20); Carbon Dioxide 28 mmol/L (23-31)
[2021-03-07 12:12] LABS: Calc. Creatinine Clearance 151 mL/min (70-130)
[2021-03-07 12:13] LABS: BUN (Urea Nitrogen) 6 mg/dL (8.4-25.7)
[2021-03-07 12:18] LABS: Magnesium 1.5 mg/dL (1.6-2.6)
[2021-03-07] MEDS ORDERED: Magnesium 2 GM/50 ML 2 GM in Premix Bag 1 BAG IVPB SCH (12:45)
[2021-03-07 15:20] LABS: Anion Gap 9 mmol/L (10-20); BUN (Urea Nitrogen) 5 mg/dL (8.4-25.7); Calc. Creatinine Clearance 145 mL/min (70-130); Calcium 8.5 mg/dL (7.8-10.44); Carbon Dioxide 31 mmol/L (23-31); Chloride 89 mmol/L (98-107); Glucose 98 mg/dL (80-115); Potassium 3.3 mmol/L (3.5-5.1); Sodium 126 mmol/L (136-145)
[2021-03-07] MEDS ORDERED: Azithromycin 500 MG in Sodium Chloride 0.9% 250 ML 250 ML IVPB SCH (21:00)
[2021-03-07] MEDS ORDERED: cefTRIAXone\\ROCEPHIN 1 GM in Sodium Chloride 0.9% 100 ML IVPB SCH (21:00)
[2021-03-07] MEDS ORDERED: Potassium Bicarbonate/Cit Ac 20 MEQ TAB PO SCH (21:45)
[2021-03-08 05:52] LABS: #Basophils 0.1 thou/uL (0.0-0.2); #Eosinphils 0.1 thou/uL (0.0-0.7); #Lymphocytes 1.2 thou/uL (1.20-3.40); #Monocytes 0.7 thou/uL (0.11-0.59); #Neutrophils 6.5 thou/uL (1.40-6.50); %Basophils 0.7 % (0.0-1.0); %Monocytes 8.2 % (0.0-10.0); %Neutrophils 76.2 % (42.0-75.0); Mean Corpuscular HGB CONC 33.6 g/dL (32.0-36.0); Mean Corpuscular Hemoglobin 32.1 pg (27.0-31.0); Mean Corpuscular Volume 95.5 fL (78.0-98.0); Mean Platelet Volume 7.5 fL (7.4-10.4); Platelet Count 265 thou/uL (130-400); RBC Distribution Width 11.1 % (11.5-14.5); Red Blood Cell (RBC) Count 3.73 mill/uL (4.70-6.10); White Blood Cell (WBC) Count 8.6 thou/uL (4.8-10.8)
[2021-03-08 06:16] LABS: Anion Gap 11 mmol/L (10-20); BUN (Urea Nitrogen) 5 mg/dL (8.4-25.7); Calc. Creatinine Clearance 131 mL/min (70-130); Calcium 8.5 mg/dL (7.8-10.44); Carbon Dioxide 32 mmol/L (23-31); Chloride 90 mmol/L (98-107); Glucose 83 mg/dL (80-115); Magnesium 1.9 mg/dL (1.6-2.6); Potassium 3.6 mmol/L (3.5-5.1); Sodium 129 mmol/L (136-145)
[2021-03-08] MEDS: Azithromycin 500 MG in Sodium Chloride 0.9% 250 ML 250 ML IVPB SCH (08:49)
[2021-03-08] MEDS: Enoxaparin Sodium 80 MG/0.8 ML SYRINGE SC SCH ×2 (08:50→20:54)
[2021-03-08] MEDS ORDERED: Magnesium 2 GM/50 ML 2 GM in Premix Bag 1 BAG IVPB SCH (09:00)
[2021-03-08] MEDS: Cefepime 2 GM in Sodium Chloride 0.9% 100 ML IVPB SCH ×2 (09:54→20:54)
[2021-03-08] MEDS: metroNIDAZOLE 500 MG TAB PER TUBE SCH ×2 (16:21→20:54)
[2021-03-09 05:42] LABS: Anion Gap 11 mmol/L (10-20); BUN (Urea Nitrogen) 8 mg/dL (8.4-25.7); Calc. Creatinine Clearance 131 mL/min (70-130); Calcium 8.3 mg/dL (7.8-10.44); Carbon Dioxide 31 mmol/L (23-31); Chloride 92 mmol/L (98-107); Glucose 84 mg/dL (80-115); Magnesium 1.9 mg/dL (1.6-2.6); Potassium 3.5 mmol/L (3.5-5.1); Sodium 130 mmol/L (136-145)
[2021-03-09] MEDS: metroNIDAZOLE 500 MG TAB PER TUBE SCH ×3 (07:53→22:00)
[2021-03-09] MEDS ORDERED: Potassium Bicarbonate/Cit Ac 20 MEQ TAB PER TUBE SCH (08:00)
[2021-03-09] MEDS ORDERED: Magnesium 2 GM/50 ML 2 GM in Premix Bag 1 BAG IVPB SCH (08:00)
[2021-03-09] MEDS: Azithromycin 500 MG in Sodium Chloride 0.9% 250 ML 250 ML IVPB SCH (08:43)
[2021-03-09] MEDS: Enoxaparin Sodium 80 MG/0.8 ML SYRINGE SC SCH ×2 (08:43→22:00)
[2021-03-09] MEDS: Cefepime 2 GM in Sodium Chloride 0.9% 100 ML IVPB SCH ×2 (10:00→22:00)
[2021-03-09 13:37] LABS: Potassium 4.2 mmol/L (3.5-5.1)
[2021-03-09] MEDS ORDERED: Sodium Chloride 0.9% 500 ML IV SCH ×2 (16:15→19:00)
[2021-03-09] MEDS: Sodium Chloride 0.9% 1,000 ML IV SCH ×2 (18:20→19:07)
[2021-03-10 04:34] LABS: #Eosinphils 0.2 thou/uL (0.0-0.7); #Lymphocytes 1.7 thou/uL (1.20-3.40); #Monocytes 0.5 thou/uL (0.11-0.59); #Neutrophils 4.2 thou/uL (1.40-6.50); %Basophils 0.5 % (0.0-1.0); %Eosinophils 3.3 % (0.0-10.0); %Lymphocytes 25.5 % (21.0-51.0); %Monocytes 7.6 % (0.0-10.0); %Neutrophils 63.2 % (42.0-75.0); Mean Corpuscular HGB CONC 33.8 g/dL (32.0-36.0); Mean Corpuscular Hemoglobin 32.5 pg (27.0-31.0); Mean Corpuscular Volume 96.1 fL (78.0-98.0); Mean Platelet Volume 7.2 fL (7.4-10.4); Platelet Count 259 thou/uL (130-400); RBC Distribution Width 11.2 % (11.5-14.5); Red Blood Cell (RBC) Count 3.38 mill/uL (4.70-6.10); White Blood Cell (WBC) Count 6.7 thou/uL (4.8-10.8)
[2021-03-10 04:53] LABS: Anion Gap 8 mmol/L (10-20); BUN (Urea Nitrogen) 10 mg/dL (8.4-25.7); Calc. Creatinine Clearance 143 mL/min (70-130); Calcium 7.8 mg/dL (7.8-10.44); Carbon Dioxide 32 mmol/L (23-31); Chloride 96 mmol/L (98-107); Glucose 78 mg/dL (80-115); Magnesium 1.8 mg/dL (1.6-2.6); Potassium 3.6 mmol/L (3.5-5.1); Sodium 132 mmol/L (136-145)
[2021-03-10] MEDS ORDERED: Magnesium 2 GM/50 ML 2 GM in Premix Bag 1 BAG IVPB SCH (06:15)
[2021-03-10] MEDS ORDERED: Aspirin 81 mg Enteric Coated Tablet PO SCH (09:00)
[2021-03-10] MEDS ORDERED: FLU VACC QS2021-22(65YR UP)/PF 240 MCG/0.7 ML SYRINGE IM ONE (09:00)
[2021-03-10] MEDS ORDERED: Folic Acid 1 MG TAB PO SCH (09:00)
[2021-03-10] MEDS ORDERED: Rosuvastatin 20 MG TAB PO SCH (09:00)
[2021-03-10] MEDS: Azithromycin 500 MG in Sodium Chloride 0.9% 250 ML 250 ML IVPB SCH (09:03)
[2021-03-10] MEDS: metroNIDAZOLE 500 MG TAB PER TUBE SCH ×2 (09:04→15:46)
[2021-03-10] MEDS: Enoxaparin Sodium 80 MG/0.8 ML SYRINGE SC SCH (09:04)
[2021-03-10] MEDS: Cefepime 2 GM in Sodium Chloride 0.9% 100 ML IVPB SCH (09:04)
[2021-03-10] MEDS ORDERED: Sodium Chloride 0.9% 500 ML IV SCH (14:00)
[2021-03-10 14:29] VITALS: BMI 19.1
[2021-03-10 16:15] VITALS: BP 102/56; TEMP 98.4
[2021-03-10] MEDS ORDERED: Lactated Ringer's 500 ML IV SCH (16:30)
[2021-03-11] MEDS ORDERED: Aspirin Chewable 81 MG TAB PO SCH (09:00)
== END 2021-03-10 17:57 | disposition home or self-care (01) | DRG 177 ==
LOC: 2NO 03:02
PROVIDERS: ADMIT Student in an Organized Health Care Education/Training Program; ATTEND Internal Medicine
DX: J69.0 Pneumonitis due to inhalation of food and vomit (principal); Z23 Encounter for immunization; Z20.822 Contact with and (suspected) exposure to COVID-19; I26.99 Other pulmonary embolism without acute cor pulmonale; E22.2 Syndrome of inappropriate secretion of antidiuretic hormone; C15.9 Malignant neoplasm of esophagus, unspecified; E86.0 Dehydration; I25.10 Atherosclerotic heart disease of native coronary artery without angina pectoris; R13.10 Dysphagia, unspecified; E83.42 Hypomagnesemia; E87.6 Hypokalemia; N18.1 Chronic kidney disease, stage 1; I95.89 Other hypotension; I12.9 Hypertensive chronic kidney disease with stage 1 through stage 4 chronic kidney disease, or unspecified chronic kidney disease; Z93.1 Gastrostomy status; Z87.891 Personal history of nicotine dependence; Z95.1 Presence of aortocoronary bypass graft; Z88.8 Allergy status to other drugs, medicaments and biological substances; Z79.899 Other long term (current) drug therapy; Z79.82 Long term (current) use of aspirin; Z79.02 Long term (current) use of antithrombotics/antiplatelets
CPT/HCPCS: 36415; 71045; 80048; 83735; 83880; 85025; 90471; 90662; 90732; G0008; G0009; J0456; J0692; J1650; J3475; J3490; J7030; J7050; J7120

== ENCOUNTER 2021-09-25 09:08 | Outpatient (CLI) | payer MEDICARE, MEDICAID ==
[2021-09-25 09:47] LABS: Estimated GFR-MDRD - POC Greater than 90
== END 2021-09-25 09:09 | disposition home or self-care (01) ==
LOC: BICCT 09:08
PROVIDERS: ATTEND Internal Medicine Hematology & Oncology
DX: C02.4 Malignant neoplasm of lingual tonsil (principal); C15.8 Malignant neoplasm of overlapping sites of esophagus; J94.8 Other specified pleural conditions; J95.09 Other tracheostomy complication
CPT/HCPCS: 70491; 71260; 82565

== ENCOUNTER 2021-10-07 10:15 | Outpatient (CLI) | payer MEDICARE, MEDICAID | END 2021-10-07 10:16 | disposition home or self-care (01) | LOC: PET 10:15 | PROVIDERS: ATTEND Internal Medicine Hematology & Oncology | DX: C02.4 Malignant neoplasm of lingual tonsil (principal); C15.8 Malignant neoplasm of overlapping sites of esophagus; M89.9 Disorder of bone, unspecified; J98.4 Other disorders of lung; R22.1 Localized swelling, mass and lump, neck | CPT/HCPCS: 78815; A9552 ==

== ENCOUNTER 2021-12-24 08:04 | Day surgery (SDC) | payer MEDICARE, MEDICAID ==
[2021-12-22 14:00] VITALS: BMI 19.0
[2021-12-24] MEDS ORDERED: EPINEPHrine 1 MG/ML AMP ONE (09:53)
[2021-12-24] MEDS ORDERED: Lidocaine 1% MPF 2 ML VIAL ONE (10:30)
[2021-12-24] MEDS ORDERED: ePHEDrine 50 MG/ML VIAL ONE (10:30)
[2021-12-24] MEDS ORDERED: Ondansetron PF 4 MG/2 ML Vial ONE (10:30)
[2021-12-24] MEDS ORDERED: Dexamethasone 20 MG/5 ML VIAL ONE (10:30)
[2021-12-24] MEDS ORDERED: PROPOFOL 200 MG/20 ML VIAL ONE (10:30)
[2021-12-24] MEDS ORDERED: fentaNYL Citrate/PF 100 MCG/2 ML SYRINGE ONE (10:31)
== END 2021-12-24 13:40 | disposition home or self-care (01) ==
LOC: SDC 08:04
PROVIDERS: ATTEND Otolaryngology Plastic Surgery within the Head & Neck
PROC: 0DB18ZX Excision of Upper Esophagus, Via Natural or Artificial Opening Endoscopic, Diagnostic (ICD-10-PCS; principal; 2021-12-24)
DX: K20.90 Esophagitis, unspecified without bleeding (principal); F17.200 Nicotine dependence, unspecified, uncomplicated; R13.19 Other dysphagia; M19.90 Unspecified osteoarthritis, unspecified site; Z85.01 Personal history of malignant neoplasm of esophagus; Z79.890 Hormone replacement therapy; Z88.8 Allergy status to other drugs, medicaments and biological substances; Z90.02 Acquired absence of larynx; Z90.49 Acquired absence of other specified parts of digestive tract; Z20.822 Contact with and (suspected) exposure to COVID-19
CPT/HCPCS: 87811; 88305; 88342; J0171; J1100; J2405; J2704; J3490

== ENCOUNTER 2022-03-20 09:30 | Outpatient (CLI) | payer MEDICARE, MEDICAID | END 2022-03-20 09:31 | disposition home or self-care (01) | LOC: PET 09:30 | PROVIDERS: ATTEND Internal Medicine Hematology & Oncology | DX: C02.4 Malignant neoplasm of lingual tonsil (principal); C15.8 Malignant neoplasm of overlapping sites of esophagus | CPT/HCPCS: 78815; A9552 ==

== ENCOUNTER 2022-05-07 10:30 | Outpatient (CLI) | payer MEDICARE, MEDICAID ==
[2022-05-07 12:49] LABS: Prothrombin Time 11.3 sec (9.5-12.1)
[2022-05-07 12:54] LABS: Anion Gap 11 mmol/L (10-20); BUN (Urea Nitrogen) 10 mg/dL (8.4-25.7); Calc. Creatinine Clearance 0 mL/min (70-130); Calcium 7.8 mg/dL (7.8-10.44); Carbon Dioxide 31 mmol/L (23-31); Chloride 86 mmol/L (98-107); Estimated GFR 108; Glucose 84 mg/dL (80-115); Potassium 4.8 mmol/L (3.5-5.1); Sodium 123 mmol/L (136-145)
[2022-05-07 12:55] LABS: #Basophils 0.1 10x3/uL (0.0-0.2); #Eosinphils 0.2 10x3/uL (0.0-0.5); #Monocytes 0.9 10x3/uL (0.0-1.1); %Basophils 0.7 % (0.0-2.0); %Eosinophils 0.9 % (0.0-6.0); %Monocytes 4.7 % (0.0-10.0); %Neutrophils 83.2 % (40.0-75.0); Hemoglobin 12.5 g/dL (13.5-17.5); Mean Corpuscular HGB CONC 34.1 g/dL (32.0-36.0); Mean Corpuscular Hemoglobin 29.4 pg (27.0-33.0); Mean Corpuscular Volume 86.4 fl (81.2-95.1); Mean Platelet Volume 11.8 fl (7.4-10.4); Platelet Count 253 10x3/uL (150-450); RBC Distribution Width 13.3 % (11.5-14.5); Red Blood Cell (RBC) Count 4.25 10x6/uL (4.32-5.72); White Blood Cell (WBC) Count 19.3 10x3/uL (3.5-10.5)
== END 2022-05-07 10:31 | disposition home or self-care (01) ==
LOC: LABBT 10:30
PROVIDERS: ATTEND Orthopaedic Surgery
DX: Z01.818 Encounter for other preprocedural examination (principal); M17.12 Unilateral primary osteoarthritis, left knee
CPT/HCPCS: 80048; 85025; 85610; 87081; 93005; 93010

== ENCOUNTER 2022-05-22 10:53 | Outpatient (CLI) | payer MEDICARE, OTHER ==
[~2022-05-22 10:53] MED LIST changes: +Iopamidol 370 76% 100 ML VIAL ONE; -Lorazepam 1 MG TAB PO PRN
== END 2022-05-22 10:54 | disposition home or self-care (01) ==
LOC: PET 10:53
PROVIDERS: ATTEND Internal Medicine Hematology & Oncology
DX: C02.4 Malignant neoplasm of lingual tonsil (principal); C15.8 Malignant neoplasm of overlapping sites of esophagus; J18.8 Other pneumonia, unspecified organism; Z98.890 Other specified postprocedural states
CPT/HCPCS: 70470; 78815; A9552; Q9967

== ENCOUNTER 2022-05-25 16:24 | Inpatient (IN) | payer MEDICARE, MEDICAID ==
[2022-05-25] MEDS ORDERED: Ondansetron PF 4 MG/2 ML Vial IVP PRN (20:57)
[2022-05-25 21:05] VITALS: BMI 17.4
[2022-05-25] MEDS ORDERED: Ipratropium/Albuterol 3 ML NEB NEB PRN (21:23)
[2022-05-25] MEDS: Famotidine/PF 20 mg/2ml Vial SLOW IVP SCH (22:05)
[2022-05-25] MEDS: cefTRIAXone\\ROCEPHIN 2 GM in Sodium Chloride 0.9% 100 ML IVPB SCH (22:06)
[2022-05-25] MEDS: Azithromycin 500 MG in Sodium Chloride 0.9% 250 ML 250 ML IVPB SCH (22:06)
[2022-05-25] MEDS: Ipratropium/Albuterol 3 ML NEB NEB SCH (23:15)
[2022-05-25 23:44] LABS: Legionella Urinary Ag Negative (Negative); Strep pneumo Urine Ag NEGATIVE (NEGATIVE)
[2022-05-25] MEDS: Albumin 25% 25 GM/100 ML BOT IVPB SCH (23:53)
[2022-05-25] MEDS: methylPREDNISolone Sod Succ 40 MG VIAL IVP SCH (23:53)
[2022-05-26 04:05] LABS: #Lymphocytes 0.7 thou/uL (1.20-3.40); #Neutrophils 8.4 thou/uL (1.40-6.50); %Basophils 0.3 % (0.0-1.0); %Eosinophils 0.1 % (0.0-10.0); %Lymphocytes 7.1 % (21.0-51.0); %Monocytes 0.4 % (0.0-10.0); %Neutrophils 92.2 % (42.0-75.0); Hemoglobin 10.9 g/dL (14.0-18.0); Mean Corpuscular HGB CONC 32.4 g/dL (32.0-36.0); Mean Corpuscular Hemoglobin 30.2 pg (27.0-31.0); Mean Corpuscular Volume 93.3 fl (78.0-98.0); Mean Platelet Volume 7.5 fL (7.4-10.4); Platelet Count 279 10x3/uL (130-400); RBC Distribution Width 12.9 % (11.5-14.5); White Blood Cell (WBC) Count 9.1 10x3/uL (4.8-10.8)
[2022-05-26 04:32] LABS: ALT (SGPT) Less than 7 U/L (8-55); AST (SGOT) 12 U/L (5-34); Albumin 2.7 g/dL (3.4-4.8); Alkaline Phosphatase 64 U/L (40-110); Anion Gap 14 mmol/L (10-20); BUN (Urea Nitrogen) 16 mg/dL (8.4-25.7); Bilirubin, Direct 0.2 mg/dL (0.1-0.3); Bilirubin, Total 0.3 mg/dL (0.2-1.2); Calc. Creatinine Clearance 99 mL/min (70-130); Calcium 7.7 mg/dL (7.8-10.44); Carbon Dioxide 26 mmol/L (23-31); Chloride 100 mmol/L (98-107); Estimated GFR 106; Glucose 126 mg/dL (80-115); Magnesium 2.1 mg/dL (1.6-2.6); Potassium 4.4 mmol/L (3.5-5.1); Protein, Total 6.1 g/dL (5.8-8.1); Sodium 136 mmol/L (136-145)
[2022-05-26] MEDS: Albumin 25% 25 GM/100 ML BOT IVPB SCH ×3 (05:32→17:53)
[2022-05-26] MEDS: methylPREDNISolone Sod Succ 40 MG VIAL IVP SCH ×4 (05:33→23:25)
[2022-05-26] MEDS: Ipratropium/Albuterol 3 ML NEB NEB SCH ×4 (06:47→23:10)
[2022-05-26] MEDS: Mometasone 200 MCG/Formoterol 5 MCG 120 PUFF INHALER INH SCH ×2 (06:49→19:08)
[2022-05-26] MEDS: Famotidine/PF 20 mg/2ml Vial SLOW IVP SCH ×3 (10:04→21:32)
[2022-05-26] MEDS ORDERED: Acetaminophen 325 MG TAB PO PRN (20:58)
[2022-05-26] MEDS: Azithromycin 500 MG in Sodium Chloride 0.9% 250 ML 250 ML IVPB SCH (21:17)
[2022-05-26] MEDS: cefTRIAXone\\ROCEPHIN 2 GM in Sodium Chloride 0.9% 100 ML IVPB SCH (21:17)
[2022-05-27 04:49] LABS: #Lymphocytes 0.9 thou/uL (1.20-3.40); #Monocytes 0.3 thou/uL (0.11-0.59); #Neutrophils 16.5 thou/uL (1.40-6.50); %Basophils 0.1 % (0.0-1.0); %Eosinophils 0.1 % (0.0-10.0); %Lymphocytes 5.3 % (21.0-51.0); %Monocytes 1.5 % (0.0-10.0); Hemoglobin 10.3 g/dL (14.0-18.0); Mean Corpuscular HGB CONC 32.6 g/dL (32.0-36.0); Mean Corpuscular Hemoglobin 30.4 pg (27.0-31.0); Mean Corpuscular Volume 93.2 fl (78.0-98.0); Platelet Count 272 10x3/uL (130-400); RBC Distribution Width 12.8 % (11.5-14.5); White Blood Cell (WBC) Count 17.7 10x3/uL (4.8-10.8)
[2022-05-27 05:18] LABS: Anion Gap 11 mmol/L (10-20); BUN (Urea Nitrogen) 17 mg/dL (8.4-25.7); Calc. Creatinine Clearance 104 mL/min (70-130); Calcium 7.9 mg/dL (7.8-10.44); Carbon Dioxide 27 mmol/L (23-31); Chloride 101 mmol/L (98-107); Estimated GFR 107; Glucose 135 mg/dL (80-115); Potassium 3.1 mmol/L (3.5-5.1); Sodium 136 mmol/L (136-145)
[2022-05-27] MEDS: methylPREDNISolone Sod Succ 40 MG VIAL IVP SCH ×3 (05:27→18:05)
[2022-05-27] MEDS ORDERED: Protamine Sulfate 50 MG/5 ML VIAL ONE (06:38)
[2022-05-27] MEDS ORDERED: Heparin 10,000 UNITS/ 10 ML VIAL ONE (06:38)
[2022-05-27] MEDS ORDERED: CEFAZOLIN 2 GM VIAL ONE (06:51)
[2022-05-27] MEDS: Ipratropium/Albuterol 3 ML NEB NEB SCH ×4 (07:12→22:51)
[2022-05-27] MEDS: Mometasone 200 MCG/Formoterol 5 MCG 120 PUFF INHALER INH SCH (07:24)
[2022-05-27] MEDS ORDERED: CEFAZOLIN 1 GM VIAL ONE (07:53)
[2022-05-27] MEDS: Famotidine/PF 20 mg/2ml Vial SLOW IVP SCH ×2 (09:05→21:02)
[2022-05-27] MEDS: cefTRIAXone\\ROCEPHIN 2 GM in Sodium Chloride 0.9% 100 ML IVPB SCH (21:01)
[2022-05-27] MEDS: Azithromycin 500 MG in Sodium Chloride 0.9% 250 ML 250 ML IVPB SCH (21:56)
[2022-05-28] MEDS: methylPREDNISolone Sod Succ 40 MG VIAL IVP SCH ×5 (00:52→23:47)
[2022-05-28 04:38] LABS: #Monocytes 0.3 thou/uL (0.11-0.59); #Neutrophils 15.5 thou/uL (1.40-6.50); %Basophils 0.1 % (0.0-1.0); %Eosinophils 0.2 % (0.0-10.0); %Lymphocytes 5.9 % (21.0-51.0); %Monocytes 1.7 % (0.0-10.0); %Neutrophils 92.2 % (42.0-75.0); Hemoglobin 10.5 g/dL (14.0-18.0); Mean Corpuscular HGB CONC 31.8 g/dL (32.0-36.0); Mean Corpuscular Hemoglobin 29.8 pg (27.0-31.0); Mean Corpuscular Volume 93.6 fl (78.0-98.0); Mean Platelet Volume 8.3 fL (7.4-10.4); Platelet Count 292 10x3/uL (130-400); RBC Distribution Width 12.8 % (11.5-14.5); Red Blood Cell (RBC) Count 3.53 mill/uL (4.70-6.10); White Blood Cell (WBC) Count 16.8 10x3/uL (4.8-10.8)
[2022-05-28 05:06] LABS: Anion Gap 12 mmol/L (10-20); BUN (Urea Nitrogen) 16 mg/dL (8.4-25.7); Calc. Creatinine Clearance 106 mL/min (70-130); Calcium 7.9 mg/dL (7.8-10.44); Carbon Dioxide 28 mmol/L (23-31); Chloride 101 mmol/L (98-107); Estimated GFR 108; Glucose 117 mg/dL (80-115); Potassium 3.2 mmol/L (3.5-5.1); Sodium 138 mmol/L (136-145)
[2022-05-28] MEDS: Ipratropium/Albuterol 3 ML NEB NEB SCH ×3 (07:33→18:36)
[2022-05-28] MEDS: Famotidine/PF 20 mg/2ml Vial SLOW IVP SCH ×2 (09:09→20:58)
[2022-05-28] MEDS: Oxacillin 2 GM in Sodium Chloride 0.9% 100 ML IVPB SCH ×2 (18:12→23:47)
[2022-05-29] MEDS: Ipratropium/Albuterol 3 ML NEB NEB SCH ×4 (00:15→23:36)
[2022-05-29] MEDS: methylPREDNISolone Sod Succ 40 MG VIAL IVP SCH (05:14)
[2022-05-29] MEDS: Oxacillin 2 GM in Sodium Chloride 0.9% 100 ML IVPB SCH ×5 (05:14→21:26)
[2022-05-29 05:18] LABS: #Lymphocytes 1.1 thou/uL (1.20-3.40); #Monocytes 0.3 thou/uL (0.11-0.59); #Neutrophils 12.8 thou/uL (1.40-6.50); %Eosinophils 0.3 % (0.0-10.0); %Lymphocytes 7.9 % (21.0-51.0); %Monocytes 2.2 % (0.0-10.0); %Neutrophils 89.6 % (42.0-75.0); Hemoglobin 11.2 g/dL (14.0-18.0); Mean Corpuscular HGB CONC 31.7 g/dL (32.0-36.0); Mean Corpuscular Hemoglobin 29.6 pg (27.0-31.0); Mean Corpuscular Volume 93.4 fl (78.0-98.0); Mean Platelet Volume 8.4 fL (7.4-10.4); Platelet Count 291 10x3/uL (130-400); RBC Distribution Width 12.8 % (11.5-14.5); Red Blood Cell (RBC) Count 3.79 mill/uL (4.70-6.10); White Blood Cell (WBC) Count 14.3 10x3/uL (4.8-10.8)
[2022-05-29 06:02] LABS: Anion Gap 13 mmol/L (10-20); BUN (Urea Nitrogen) 14 mg/dL (8.4-25.7); Calc. Creatinine Clearance 112 mL/min (70-130); Calcium 7.6 mg/dL (7.8-10.44); Carbon Dioxide 27 mmol/L (23-31); Chloride 98 mmol/L (98-107); Estimated GFR 110; Glucose 116 mg/dL (80-115); Magnesium 1.9 mg/dL (1.6-2.6); Potassium 2.9 mmol/L (3.5-5.1); Sodium 135 mmol/L (136-145)
[2022-05-29] MEDS: HYDROcodone/Acetaminophen 5/325 mg Tablet PO PRN ×2 (10:07→14:36)
[2022-05-29] MEDS: Famotidine/PF 20 mg/2ml Vial SLOW IVP SCH ×2 (10:08→21:26)
[2022-05-30] MEDS: Ipratropium/Albuterol 3 ML NEB NEB SCH ×5 (00:17→23:46)
[2022-05-30] MEDS: Oxacillin 2 GM in Sodium Chloride 0.9% 100 ML IVPB SCH ×6 (01:39→22:56)
[2022-05-30] MEDS: HYDROcodone/Acetaminophen 5/325 mg Tablet PO PRN ×3 (01:42→23:09)
[2022-05-30 06:15] LABS: #Eosinphils 0.1 thou/uL (0.0-0.7); #Lymphocytes 1.4 thou/uL (1.20-3.40); #Monocytes 0.5 thou/uL (0.11-0.59); #Neutrophils 10.6 thou/uL (1.40-6.50); %Basophils 0.2 % (0.0-1.0); %Eosinophils 0.4 % (0.0-10.0); %Lymphocytes 11.2 % (21.0-51.0); %Monocytes 4.2 % (0.0-10.0); Mean Corpuscular HGB CONC 31.8 g/dL (32.0-36.0); Mean Corpuscular Hemoglobin 29.7 pg (27.0-31.0); Mean Corpuscular Volume 93.5 fl (78.0-98.0); Mean Platelet Volume 7.7 fL (7.4-10.4); Platelet Count 278 10x3/uL (130-400); RBC Distribution Width 12.8 % (11.5-14.5); Red Blood Cell (RBC) Count 3.72 mill/uL (4.70-6.10); White Blood Cell (WBC) Count 12.6 10x3/uL (4.8-10.8)
[2022-05-30 06:41] LABS: Anion Gap 6 mmol/L (10-20); BUN (Urea Nitrogen) 13 mg/dL (8.4-25.7); Calc. Creatinine Clearance 108 mL/min (70-130); Calcium 7.5 mg/dL (7.8-10.44); Carbon Dioxide 32 mmol/L (23-31); Chloride 98 mmol/L (98-107); Estimated GFR 109; Glucose 78 mg/dL (80-115); Magnesium 1.8 mg/dL (1.6-2.6); Potassium 3.2 mmol/L (3.5-5.1); Sodium 133 mmol/L (136-145)
[2022-05-30] MEDS: predniSONE 20 MG TAB PO SCH (08:48)
[2022-05-30] MEDS: Famotidine/PF 20 mg/2ml Vial SLOW IVP SCH ×2 (08:48→22:56)
[2022-05-31] MEDS: Oxacillin 2 GM in Sodium Chloride 0.9% 100 ML IVPB SCH ×5 (02:43→20:51)
[2022-05-31 06:29] LABS: #Eosinphils 0.1 thou/uL (0.0-0.7); #Lymphocytes 1.5 thou/uL (1.20-3.40); #Monocytes 0.4 thou/uL (0.11-0.59); #Neutrophils 6.6 thou/uL (1.40-6.50); %Eosinophils 1.5 % (0.0-10.0); %Lymphocytes 17.1 % (21.0-51.0); %Monocytes 4.6 % (0.0-10.0); %Neutrophils 76.7 % (42.0-75.0); Mean Corpuscular Hemoglobin 29.8 pg (27.0-31.0); Mean Corpuscular Volume 93.1 fl (78.0-98.0); Platelet Count 263 10x3/uL (130-400); RBC Distribution Width 12.8 % (11.5-14.5); Red Blood Cell (RBC) Count 4.01 mill/uL (4.70-6.10); White Blood Cell (WBC) Count 8.6 10x3/uL (4.8-10.8)
[2022-05-31] MEDS: Ipratropium/Albuterol 3 ML NEB NEB SCH ×3 (07:24→19:47)
[2022-05-31] MEDS: predniSONE 20 MG TAB PO SCH (08:33)
[2022-05-31] MEDS: Famotidine/PF 20 mg/2ml Vial SLOW IVP SCH ×2 (08:33→20:47)
[2022-05-31 09:49] LABS: Chloride 100 mmol/L (98-107); Potassium 3.3 mmol/L (3.5-5.1); Sodium 136 mmol/L (136-145)
[2022-05-31 09:50] LABS: Calcium 7.7 mg/dL (7.8-10.44); Glucose 87 mg/dL (80-115)
[2022-05-31 09:52] LABS: Anion Gap 11 mmol/L (10-20); Carbon Dioxide 28 mmol/L (23-31)
[2022-05-31 09:54] LABS: Calc. Creatinine Clearance 97 mL/min (70-130); Estimated GFR 105
[2022-05-31 09:55] LABS: BUN (Urea Nitrogen) 11 mg/dL (8.4-25.7)
[2022-05-31 09:56] LABS: Magnesium 1.9 mg/dL (1.6-2.6)
[2022-05-31] MEDS ORDERED: Carbamide Peroxide 6.5% Otic Drops 15 ml Bottle EA EAR SCH (12:00)
[2022-05-31] MEDS ORDERED: Potassium Chloride 20 MEQ TAB PO SCH (15:30)
[2022-05-31] MEDS: Carbamide Peroxide 6.5% Otic Drops 15 ml Bottle EA EAR SCH ×2 (20:47→21:36)
[2022-06-01] MEDS: Ipratropium/Albuterol 3 ML NEB NEB SCH ×4 (00:09→19:08)
[2022-06-01] MEDS: Oxacillin 2 GM in Sodium Chloride 0.9% 100 ML IVPB SCH ×7 (00:58→23:02)
[2022-06-01 05:24] LABS: #Eosinphils 0.1 thou/uL (0.0-0.7); #Lymphocytes 1.4 thou/uL (1.20-3.40); #Monocytes 0.4 thou/uL (0.11-0.59); #Neutrophils 5.7 thou/uL (1.40-6.50); %Eosinophils 1.9 % (0.0-10.0); %Lymphocytes 18.9 % (21.0-51.0); %Monocytes 4.7 % (0.0-10.0); %Neutrophils 74.5 % (42.0-75.0); Hemoglobin 11.3 g/dL (14.0-18.0); Mean Corpuscular HGB CONC 32.4 g/dL (32.0-36.0); Mean Corpuscular Hemoglobin 30.2 pg (27.0-31.0); Mean Corpuscular Volume 93.3 fl (78.0-98.0); Mean Platelet Volume 8.1 fL (7.4-10.4); Platelet Count 266 10x3/uL (130-400); RBC Distribution Width 12.9 % (11.5-14.5); Red Blood Cell (RBC) Count 3.75 mill/uL (4.70-6.10); White Blood Cell (WBC) Count 7.6 10x3/uL (4.8-10.8)
[2022-06-01 05:44] LABS: Anion Gap 4 mmol/L (10-20); BUN (Urea Nitrogen) 13 mg/dL (8.4-25.7); Calc. Creatinine Clearance 104 mL/min (70-130); Calcium 7.4 mg/dL (7.8-10.44); Carbon Dioxide 29 mmol/L (23-31); Chloride 104 mmol/L (98-107); Estimated GFR 107; Glucose 83 mg/dL (80-115); Magnesium 1.9 mg/dL (1.6-2.6); Potassium 2.9 mmol/L (3.5-5.1); Sodium 134 mmol/L (136-145)
[2022-06-01] MEDS: Famotidine/PF 20 mg/2ml Vial SLOW IVP SCH ×2 (08:58→20:32)
[2022-06-01] MEDS: predniSONE 20 MG TAB PO SCH (08:58)
[2022-06-01] MEDS: Carbamide Peroxide 6.5% Otic Drops 15 ml Bottle EA EAR SCH ×2 (08:59→20:30)
[2022-06-01] MEDS: HYDROcodone/Acetaminophen 5/325 mg Tablet PO PRN (18:01)
[2022-06-02] MEDS: Ipratropium/Albuterol 3 ML NEB NEB SCH ×4 (01:20→19:03)
[2022-06-02] MEDS: Oxacillin 2 GM in Sodium Chloride 0.9% 100 ML IVPB SCH ×6 (03:25→23:52)
[2022-06-02] MEDS: Famotidine/PF 20 mg/2ml Vial SLOW IVP SCH ×2 (08:27→20:08)
[2022-06-02] MEDS: predniSONE 20 MG TAB PO SCH (08:27)
[2022-06-02] MEDS: Carbamide Peroxide 6.5% Otic Drops 15 ml Bottle EA EAR SCH ×2 (08:28→20:08)
[2022-06-02] MEDS: HYDROcodone/Acetaminophen 5/325 mg Tablet PO PRN ×2 (08:29→14:41)
[2022-06-03] MEDS: Ipratropium/Albuterol 3 ML NEB NEB SCH ×2 (00:16→07:50)
[2022-06-03] MEDS: Oxacillin 2 GM in Sodium Chloride 0.9% 100 ML IVPB SCH ×4 (04:12→16:01)
[2022-06-03] MEDS: predniSONE 20 MG TAB PO SCH (08:05)
[2022-06-03] MEDS: Famotidine/PF 20 mg/2ml Vial SLOW IVP SCH (08:05)
[2022-06-03] MEDS: HYDROcodone/Acetaminophen 5/325 mg Tablet PO PRN (08:06)
[2022-06-03] MEDS: Carbamide Peroxide 6.5% Otic Drops 15 ml Bottle EA EAR SCH (08:06)
[2022-06-03 13:25] VITALS: BP 126/77; TEMP 97.9
== END 2022-06-03 18:15 | disposition home or self-care (01) | DRG 177 ==
LOC: 2NO 16:24 → MSONC 05-29 18:41
PROVIDERS: ADMIT Family Medicine; ATTEND Hospitalist
PROC: 30233J1 Transfusion of Nonautologous Serum Albumin into Peripheral Vein, Percutaneous Approach (ICD-10-PCS; principal; 2022-05-25)
DX: J15.211 Pneumonia due to Methicillin susceptible Staphylococcus aureus (principal); E43 Unspecified severe protein-calorie malnutrition; J96.01 Acute respiratory failure with hypoxia; J44.0 Chronic obstructive pulmonary disease with (acute) lower respiratory infection; D84.9 Immunodeficiency, unspecified; Z68.1 Body mass index [BMI] 19.9 or less, adult; J69.0 Pneumonitis due to inhalation of food and vomit; I25.10 Atherosclerotic heart disease of native coronary artery without angina pectoris; C10.9 Malignant neoplasm of oropharynx, unspecified; I11.0 Hypertensive heart disease with heart failure; Z98.890 Other specified postprocedural states; Z87.891 Personal history of nicotine dependence; Z88.8 Allergy status to other drugs, medicaments and biological substances; Z79.899 Other long term (current) drug therapy; I25.2 Old myocardial infarction; Z93.0 Tracheostomy status
CPT/HCPCS: 36415; 71045; 80048; 80076; 83735; 85025; 87070; 87077; 87081; 87186; 87205; 87449; 87899; 93306; 94640; 94667; 94668; 97139; J0456; J0690; J0696; J1644; J1650; J2700; J2720; J2920; J3490; J7050; J7512; J7620; P9047; S0028

== ENCOUNTER 2022-08-12 20:02 | Inpatient (IN) | payer MEDICARE, MEDICAID ==
[2022-08-12] MEDS ORDERED: Cefepime 2 GM VIAL ONE (20:35)
[2022-08-12] MEDS ORDERED: Ipratropium/Albuterol 3 ML NEB ONE (21:19)
[2022-08-12] MEDS ORDERED: Magnesium 2 GM/50 ML BAG (IN WATER) ONE (21:43)
[2022-08-12 22:36] LABS: Troponin I Less than 0.010 ng/mL (< 0.028)
[2022-08-12] MEDS ORDERED: Ondansetron ODT 4 MG TAB PO PRN (23:17)
[2022-08-12] MEDS ORDERED: Ondansetron PF 4 MG/2 ML Vial IVP PRN (23:17)
[2022-08-12] MEDS ORDERED: Acetaminophen 650 MG Suppository PR PRN (23:17)
[2022-08-12] MEDS ORDERED: Acetaminophen 325 MG TAB PO PRN (23:17)
[2022-08-13] MEDS ORDERED: Ipratropium/Albuterol 3 ML NEB NEB PRN (00:07)
[2022-08-13 00:24] VITALS: BMI 18.1
[2022-08-13] MEDS ORDERED: Electrolyte Replacement Protocol 1 EACH FS PRN (00:30)
[2022-08-13] MEDS: Ipratropium/Albuterol 3 ML NEB NEB SCH ×6 (02:54→21:56)
[2022-08-13 04:21] LABS: #Lymphocytes 0.8 thou/uL (1.20-3.40); #Monocytes 0.3 thou/uL (0.11-0.59); #Neutrophils 15.3 thou/uL (1.40-6.50); %Basophils 0.1 % (0.0-1.0); %Eosinophils 0.1 % (0.0-10.0); %Lymphocytes 4.8 % (21.0-51.0); %Monocytes 1.6 % (0.0-10.0); %Neutrophils 93.5 % (42.0-75.0); Hemoglobin 9.7 g/dL (14.0-18.0); Mean Corpuscular HGB CONC 32.6 g/dL (32.0-36.0); Mean Corpuscular Hemoglobin 30.5 pg (27.0-31.0); Mean Corpuscular Volume 93.5 fl (78.0-98.0); Mean Platelet Volume 7.9 fL (7.4-10.4); Platelet Count 249 10x3/uL (130-400); RBC Distribution Width 13.2 % (11.5-14.5); Red Blood Cell (RBC) Count 3.19 mill/uL (4.70-6.10); White Blood Cell (WBC) Count 16.3 10x3/uL (4.8-10.8)
[2022-08-13 04:36] LABS: Anion Gap 12 mmol/L (10-20); BUN (Urea Nitrogen) 10 mg/dL (8.4-25.7); Calc. Creatinine Clearance 96 mL/min (70-130); Calcium 7.6 mg/dL (7.8-10.44); Carbon Dioxide 25 mmol/L (23-31); Chloride 99 mmol/L (98-107); Estimated GFR 105; Glucose 159 mg/dL (80-115); Potassium 3.6 mmol/L (3.5-5.1); Sodium 132 mmol/L (136-145)
[2022-08-13 05:57] LABS: Bacteria/HPF None Seen HPF (None Seen); Bilirubin Negative (Negative); Blood, Urine 2+ (Negative); Clarity Clear (Clear); Glucose, Urine (Dipstick) 50 mg/dL (Negative); Ketone, Urine Trace mg/dL (Negative); Leukocyte 25 Leu/uL (Negative); Nitrite Negative (Negative); Protein, Urine (Dipstick) 20 mg/dL (Neg-Trace); Squamous Epithelial None Seen HPF (0-3); Urobilinogen Normal mg/dL (Less than 2); pH, Urine 5.5 (5.0-9.0)
[2022-08-13 05:58] LABS: Specific Gravity, Urine 1.053 (1.002-1.036)
[2022-08-13] MEDS ORDERED: methylPREDNISolone Sod Succ 40 MG VIAL IVP SCH (09:00)
[2022-08-13] MEDS: Cefepime 2 GM in Sodium Chloride 0.9% 100 ML IVPB SCH ×2 (09:04→21:23)
[2022-08-13] MEDS: Famotidine/PF 20 mg/2ml Vial SLOW IVP SCH ×2 (09:04→21:23)
[2022-08-13] MEDS ORDERED: DOPamine 400 MG/D5W 250 ML 250 ML IVPB SCH (10:30)
[2022-08-14] MEDS: Ipratropium/Albuterol 3 ML NEB NEB SCH ×6 (01:39→21:49)
[2022-08-14] MEDS: Famotidine/PF 20 mg/2ml Vial SLOW IVP SCH ×2 (08:37→21:01)
[2022-08-14] MEDS: predniSONE 20 MG TAB PO SCH (08:38)
[2022-08-14] MEDS: Cefdinir 300 MG CAP PO SCH (08:39)
[2022-08-15] MEDS: Ipratropium/Albuterol 3 ML NEB NEB SCH ×6 (02:25→22:41)
[2022-08-15] MEDS: Famotidine/PF 20 mg/2ml Vial SLOW IVP SCH ×2 (09:18→20:16)
[2022-08-15] MEDS: Cefdinir 300 MG CAP PO SCH (09:18)
[2022-08-15] MEDS: predniSONE 20 MG TAB PO SCH (09:18)
[2022-08-15] MEDS ORDERED: Sodium Chloride 0.9% 250 ML IV SCH (20:15)
[2022-08-16] MEDS: Ipratropium/Albuterol 3 ML NEB NEB SCH ×6 (02:25→22:19)
[2022-08-16 05:41] LABS: #Eosinphils 0.1 thou/uL (0.0-0.7); #Lymphocytes 2.1 thou/uL (1.20-3.40); #Monocytes 0.8 thou/uL (0.11-0.59); #Neutrophils 9.4 thou/uL (1.40-6.50); %Basophils 0.2 % (0.0-1.0); %Eosinophils 0.4 % (0.0-10.0); %Lymphocytes 17.1 % (21.0-51.0); %Monocytes 6.2 % (0.0-10.0); %Neutrophils 76.1 % (42.0-75.0); Hemoglobin 10.7 g/dL (14.0-18.0); Mean Corpuscular HGB CONC 31.3 g/dL (32.0-36.0); Mean Corpuscular Hemoglobin 29.1 pg (27.0-31.0); Mean Platelet Volume 7.8 fL (7.4-10.4); Platelet Count 241 10x3/uL (130-400); RBC Distribution Width 12.9 % (11.5-14.5); Red Blood Cell (RBC) Count 3.68 mill/uL (4.70-6.10); White Blood Cell (WBC) Count 12.4 10x3/uL (4.8-10.8)
[2022-08-16 05:57] LABS: Anion Gap 9 mmol/L (10-20); BUN (Urea Nitrogen) 12 mg/dL (8.4-25.7); Calc. Creatinine Clearance 106 mL/min (70-130); Calcium 7.6 mg/dL (7.8-10.44); Carbon Dioxide 33 mmol/L (23-31); Chloride 90 mmol/L (98-107); Estimated GFR 109; Glucose 75 mg/dL (80-115); Potassium 3.5 mmol/L (3.5-5.1); Sodium 128 mmol/L (136-145)
[2022-08-16] MEDS ORDERED: Potassium Chloride 20 MEQ TAB PO SCH (08:00)
[2022-08-16] MEDS: Famotidine/PF 20 mg/2ml Vial SLOW IVP SCH ×2 (09:18→20:48)
[2022-08-16] MEDS: predniSONE 20 MG TAB PO SCH (09:22)
[2022-08-16] MEDS: Cefdinir 300 MG CAP PO SCH (09:22)
[2022-08-16] MEDS ORDERED: PHENYLEPHRINE-NS 100 MCG/ML 10 ML SYRINGE ONE (09:30)
[2022-08-16] MEDS ORDERED: Lidocaine 1% PF 5 ML VIAL ONE (09:30)
[2022-08-16] MEDS ORDERED: PROPOFOL 200 MG/20 ML VIAL ONE (09:30)
[2022-08-16] MEDS ORDERED: fentaNYL 50 mcg/mL 1 mL Vial ONE (09:45)
[2022-08-16] MEDS ORDERED: Ondansetron HCl/PF 4 MG/2 ML Vial IVP PRN (10:36)
[2022-08-17] MEDS: Ipratropium/Albuterol 3 ML NEB NEB SCH ×6 (02:33→21:49)
[2022-08-17] MEDS: Famotidine/PF 20 mg/2ml Vial SLOW IVP SCH ×2 (08:52→20:50)
[2022-08-17] MEDS: predniSONE 20 MG TAB PO SCH (08:52)
[2022-08-17] MEDS: Midodrine HCl 5 MG TAB PO SCH ×3 (08:52→20:50)
[2022-08-17] MEDS: Cefepime 2 GM in Sodium Chloride 0.9% 100 ML IVPB SCH ×2 (09:00→20:50)
[2022-08-18] MEDS: Ipratropium/Albuterol 3 ML NEB NEB SCH ×6 (01:53→21:53)
[2022-08-18 05:36] LABS: #Eosinphils 0.3 thou/uL (0.0-0.7); #Monocytes 0.8 thou/uL (0.11-0.59); #Neutrophils 7.6 thou/uL (1.40-6.50); %Basophils 0.2 % (0.0-1.0); %Eosinophils 2.3 % (0.0-10.0); %Lymphocytes 20.7 % (21.0-51.0); %Monocytes 7.3 % (0.0-10.0); %Neutrophils 68.8 % (42.0-75.0); Hemoglobin 9.7 g/dL (14.0-18.0); Mean Corpuscular HGB CONC 30.3 g/dL (32.0-36.0); Mean Corpuscular Hemoglobin 27.6 pg (27.0-31.0); Mean Corpuscular Volume 91.2 fl (78.0-98.0); Mean Platelet Volume 9.7 fL (7.4-10.4); Platelet Count 254 10x3/uL (130-400); RBC Distribution Width 13.6 % (11.5-14.5); Red Blood Cell (RBC) Count 3.51 mill/uL (4.70-6.10); White Blood Cell (WBC) Count 11.1 10x3/uL (4.8-10.8)
[2022-08-18 05:53] LABS: Anion Gap 6 mmol/L (10-20); BUN (Urea Nitrogen) 11 mg/dL (8.4-25.7); Calc. Creatinine Clearance 110 mL/min (70-130); Calcium 7.9 mg/dL (7.8-10.44); Carbon Dioxide 34 mmol/L (23-31); Chloride 92 mmol/L (98-107); Estimated GFR 110; Glucose 66 mg/dL (80-115); Potassium 3.9 mmol/L (3.5-5.1); Sodium 128 mmol/L (136-145)
[2022-08-18] MEDS: Midodrine HCl 5 MG TAB PO SCH ×3 (09:33→19:56)
[2022-08-18] MEDS: predniSONE 20 MG TAB PO SCH (09:33)
[2022-08-18] MEDS: Cefepime 2 GM in Sodium Chloride 0.9% 100 ML IVPB SCH ×2 (09:33→19:56)
[2022-08-18] MEDS: Famotidine/PF 20 mg/2ml Vial SLOW IVP SCH ×2 (09:36→19:56)
[2022-08-19] MEDS: Ipratropium/Albuterol 3 ML NEB NEB SCH ×3 (01:36→10:12)
[2022-08-19] MEDS: Cefepime 2 GM in Sodium Chloride 0.9% 100 ML IVPB SCH (08:03)
[2022-08-19] MEDS: Midodrine HCl 5 MG TAB PO SCH (08:03)
[2022-08-19] MEDS: predniSONE 20 MG TAB PO SCH (08:04)
[2022-08-19] MEDS: Famotidine/PF 20 mg/2ml Vial SLOW IVP SCH (08:04)
[2022-08-19 08:55] VITALS: TEMP 98.3
[2022-08-19 09:54] LABS: Anion Gap 10 mmol/L (10-20); BUN (Urea Nitrogen) 10 mg/dL (8.4-25.7); Calc. Creatinine Clearance 101 mL/min (70-130); Carbon Dioxide 30 mmol/L (23-31); Chloride 89 mmol/L (98-107); Estimated GFR 107; Glucose 98 mg/dL (80-115); Potassium 3.8 mmol/L (3.5-5.1); Sodium 125 mmol/L (136-145)
[2022-08-19 12:13] VITALS: BP 105/70
== END 2022-08-19 13:40 | disposition swing bed (61) | DRG 871 ==
LOC: ERS 20:02 → IMCU/EMU 21:38 → SURG A 08-15 16:10
PROVIDERS: ADMIT Student in an Organized Health Care Education/Training Program; ATTEND Hospitalist
PROC: 3E03329 Introduction of Other Anti-infective into Peripheral Vein, Percutaneous Approach (ICD-10-PCS; principal; 2022-08-12)
PROC: 0DJ08ZZ Inspection of Upper Intestinal Tract, Via Natural or Artificial Opening Endoscopic (ICD-10-PCS; 2022-08-16)
DX: A41.9 Sepsis, unspecified organism (principal); J15.211 Pneumonia due to Methicillin susceptible Staphylococcus aureus; J15.6 Pneumonia due to other Gram-negative bacteria; J96.21 Acute and chronic respiratory failure with hypoxia; E44.0 Moderate protein-calorie malnutrition; E87.1 Hypo-osmolality and hyponatremia; J44.0 Chronic obstructive pulmonary disease with (acute) lower respiratory infection; J44.1 Chronic obstructive pulmonary disease with (acute) exacerbation; Z68.1 Body mass index [BMI] 19.9 or less, adult; R91.1 Solitary pulmonary nodule; K22.2 Esophageal obstruction; R13.10 Dysphagia, unspecified; I48.91 Unspecified atrial fibrillation; E03.9 Hypothyroidism, unspecified; I25.10 Atherosclerotic heart disease of native coronary artery without angina pectoris; Z60.2 Problems related to living alone; Z79.899 Other long term (current) drug therapy; Z88.1 Allergy status to other antibiotic agents; Z85.819 Personal history of malignant neoplasm of unspecified site of lip, oral cavity, and pharynx; Z92.3 Personal history of irradiation; Z85.118 Personal history of other malignant neoplasm of bronchus and lung; Z95.1 Presence of aortocoronary bypass graft; Z87.891 Personal history of nicotine dependence; Z79.890 Hormone replacement therapy; I25.2 Old myocardial infarction; Z93.0 Tracheostomy status; I50.9 Heart failure, unspecified; E16.2 Hypoglycemia, unspecified
CPT/HCPCS: 36415; 36416; 71045; 74220; 78815; 80048; 81001; 84145; 84484; 85025; 87070; 87077; 87186; 87205; 94640; 96365; 96375; A9552; J0692; J1650; J2704; J2920; J3010; J3475; J3490; J7030; J7512; J7620; S0028